=== PATIENT | male | born 1945 | race Hispanic/Latino ===

== ENCOUNTER 2017-08-24 19:29 | Inpatient (IN) | payer MEDICARE, OTHER ==
[~2017-08-24 19:29] MED LIST: Heparin 10,000 UNITS/ 10 ML VIAL ONE
--- NOTE | 2017-08-24 20:08 | PDOC.EVN ---
Event Note - Event Note Event Note: [id number] 1. A/CKD stage 3 2. Pulmonary edema 3. HTN 4. R/O CHF 5. H/O PVD plan: see orders
[2017-08-24] MEDS ORDERED: Acetaminophen 325 MG TAB PO PRN (20:41)
[2017-08-24] MEDS ORDERED: Ondansetron HCl/PF 4 MG/2 ML Vial IVP PRN (20:41)
[2017-08-24] MEDS: Atorvastatin Calcium 20 MG TAB PO SCH (21:25)
[2017-08-24] MEDS: NIFEdipine XL 60 MG TAB PO SCH (21:25)
[2017-08-24] MEDS: Acetaminophen/Codeine 30-300mg Tablet PO SCH (21:26)
[2017-08-24] MEDS: hydrALAZINE 25 MG TAB PO SCH (21:26)
[2017-08-24] MEDS: Heparin 5,000 UNITS/ML VIAL SC SCH (21:28)
[2017-08-25] MEDS ORDERED: Furosemide 100 MG/10 ML VIAL SLOW IVP SCH (04:00)
[2017-08-25 05:28] LABS: Anion Gap 21 mmol/L (10-20); Calc. Creatinine Clearance 14 mL/min (70-130); Calcium 9.2 mg/dL (7.8-10.44); Carbon Dioxide 22 mmol/L (23-31); Chloride 95 mmol/L (98-107); Estimated GFR-MDRD 12; Phosphorus 5.6 mg/dL (2.3-4.7)
[2017-08-25 05:33] LABS: Troponin I 1.357 ng/mL (< 0.028)
[2017-08-25 05:39] LABS: BUN (Urea Nitrogen) 140 mg/dL (8.4-25.7)
[2017-08-25] MEDS: Acetaminophen/Codeine 30-300mg Tablet PO SCH ×3 (05:45→20:54)
[2017-08-25 06:07] LABS: Anisocytosis SLIGHT = 6-15 cells (100X) (0-5/hpf); Band 5 % (5-11); Elliptocytes SLIGHT = 2-5 cells (100X) (0-1/hpf); Hematocrit 31.5 % (42.0-52.0); Mean Platelet Volume 10.9 fL (7.4-10.4); Myelocyte 1 % (0-0); Neutrophil 75 % (42-75); Nucleated RBC 1 % (0); Red Blood Cell (RBC) Count 4.33 mill/uL (4.70-6.10); White Blood Cell (WBC) Count 10.8 thou/uL (4.8-10.8)
--- NOTE | 2017-08-25 06:10 | HP ---
DATE OF ADMISSION: 08/24/2017 CHIEF COMPLAINT: Dyspnea. HISTORY OF PRESENT ILLNESS: Patient is a 71-year-old male with past medical history of hypertension, peripheral vascular disease, TIA, hyperlipidemia, chronic kidney disease stage 3, now came to the ER, complaining of dyspnea, dyspnea started last few days, dyspnea associated with palpable swelling also, complains of dyspnea on minimal exertion, complains of some dyspnea on lying flat also. Denies any chest pain, denies any palpations. Complains of fatigue. Denies any nausea, denies any vomiting, denies any cough, denies any production, denies any dysuria, denies any hematuria. PAST MEDICAL HISTORY: As per HPI. PAST SURGICAL HISTORY: Reviewed. SOCIAL HISTORY: Denies smoking, denies alcohol use and drugs. FAMILY HISTORY: Positive for coronary artery disease, [place]. ALLERGIES: NEURONTIN, LISINOPRIL. REVIEW OF SYSTEMS: Constitutional: Denies any fever, denies any chills. Positive for fatigue. Eyes: Denies any vision problems. Ears: Denies any hearing loss. Neck: Denies any neck pain. Cardiovascular system: Denies any chest pain. Respiratory system: Positive for dyspnea. Positive for cough. Gastrointestinal system: Denies nausea, vomiting, complains of loss of appetite. Musculoskeletal: Positive for bilateral lower extremity swelling, edematous, and rash. Psychiatric: Denies anxiety. All other review of systems are reviewed and are negative. PHYSICAL EXAMINATION: CONSTITUTIONAL/VITAL SIGNS: At the time of H and P performed, blood pressure is 131/62, pulse ox 96%, heart rate 71. GENERAL: The patient appears comfortable. HEENT: Pupils equal, round, and reactive to light. Anterior nares patent. Nose normal. Oral cavity: No teeth seen. Tongue is moist. NECK: Supple, no JVD. CARDIOVASCULAR: S1, S2 present. Regular rate and rhythm. No murmurs, no rubs , no gallops. RESPIRATORY: No wheezing, no rhonchi. Diminished at the bases. Positive for crackles. GASTROINTESTINAL: Abdomen is soft, nontender, no guarding, no organomegaly, no masses felt. MUSCULOSKELETAL: Trace edema. CRANIAL NERVOUS SYSTEM: Awake, follows commands. Speech clear. PSYCHIATRIC: Mood is appropriate at this time. LABORATORY AND DIAGNOSTIC DATA: At the time of H and P performed, white count 14.6, hemoglobin 10.4, platelet count is 247. Sodium 136, potassium 3.3, chloride 94, CO2 of 20, BUN 139, creatinine is 5.46. Baseline creatinine is around 1.7 in 2016. Albumin is 3.8, globulin 5, vitamin B, free T4. Chest x- ray, no obvious infiltrate seen. Positive for some pulmonary congestion. ASSESSMENT AND PLAN: The patient is a 71-year-old male. 1. Acute on chronic kidney disease. We will plan to consult nephrology for patient. Plan to place Howard catheter. Plan to check CT renal stone protocol to rule out any obstruction. Plan to hold off maintenance efforts at this time. Plan to check urine studies. 2. Acute on chronic congestive heart failure, pressor fluid overload. Plan to monitor the patient closely. Plan to consult cardiology to evaluate the patient. We will hold diuretics at this time because of the acute kidney injury. The patient's respiratory status is stable at this time. If respiratory status gets worse, we will give a dose of Lasix at the time. 3. History of hypertension. Monitor blood pressure, hold lisinopril. Continue home medications. 4. History of coronary artery disease. Continue aspirin. 5. History of peripheral vascular disease, stable at this time. The case was discussed in detail with the patient. The patient is FULL CODE. MTDD
[2017-08-25] MEDS: Heparin 5,000 UNITS/ML VIAL SC SCH ×3 (08:36→20:54)
[2017-08-25] MEDS: hydrALAZINE 25 MG TAB PO SCH ×3 (08:37→20:55)
[2017-08-25] MEDS: NIFEdipine XL 60 MG TAB PO SCH ×2 (08:38→20:53)
[2017-08-25 08:57] LABS: Troponin I 1.279 ng/mL (< 0.028)
[2017-08-25] MEDS ORDERED: FLU VACC TS2017-18 (>65YR) 0.5 ML SYRINGE IM ONE (09:00)
[2017-08-25] MEDS ORDERED: Cefepime 1 GM in Sodium Chloride 0.9% 100 ML IVPB SCH ×2 (10:45→21:00)
[2017-08-25] MEDS: Cefepime 1 GM, Admixture Fee 1 EACH in Sterile Water 10 ML SLOW IVP SCH ×2 (11:58→23:46)
[2017-08-25] MEDS: Levofloxacin/D5W 250 MG in Premix Bag 1 BAG IVPB SCH (12:05)
--- NOTE | 2017-08-25 12:05 | PDOC.PN ---
- Subjective Encounter Start Date: 08/25/17 Encounter Start Time: 12:04 breathing better no f/c no n/v - Objective MAR Reviewed: Yes Vital Signs & Weight: Vital Signs (12 hours) Temp Pulse Resp BP BP Pulse Ox 08/25/17 11:43 97.6 F 73 20 120/54 L 98 08/25/17 08:37 69 124/59 L 08/25/17 08:35 97.9 F 70 20 98 08/25/17 08:00 97.9 F 70 24 H 131/58 L 98 08/25/17 03:09 98.4 F 71 17 128/60 96 Weight Weight 163 lb 7 oz I&O: 08/24/17 08/25/17 08/26/17 06:59 06:59 06:59 Intake Total 360 290 Output Total 650 450 Balance -290 -160 Result Diagrams: 08/25/17 04:18 08/25/17 04:18 Phys Exam - Physical Examination Constitutional: NAD HEENT: PERRLA Neck: no nodes coarse bs, decreased at bases. rhonchi lt upper lobe Cardiovascular: no significant murmur Gastrointestinal: non-tender Musculoskeletal: pulses present Neurological: normal sensation Psychiatric: A&O x 3 Dx/Plan (1) PNA (pneumonia) Code(s): J18.9 - PNEUMONIA, UNSPECIFIED ORGANISM Status: Acute (2) Elevated troponin Code(s): R74.8 - ABNORMAL LEVELS OF OTHER SERUM ENZYMES Status: Acute (3) Acute on chronic diastolic CHF (congestive heart failure) Code(s): I50.33 - ACUTE ON CHRONIC DIASTOLIC (CONGESTIVE) HEART FAILURE Status : Acute (4) Hypertension Code(s): I10 - ESSENTIAL (PRIMARY) HYPERTENSION Status: Chronic Qualifiers: Hypertension type: essential hypertension Qualified Code(s): I10 - Essential (primary) hypertension Comment: Not well controlled, will adjust meds. Hold off on PA inhibitor for now until renal function stabilized. (5) PVD (peripheral vascular disease) Code(s): I73.9 - PERIPHERAL VASCULAR DISEASE, UNSPECIFIED Status: Chronic Comment: S/P CEA on right yesterday. BP running high, on NTG and Nipride for control. (6) CAD (coronary artery disease) Code(s): I25.10 - ATHSCL HEART DISEASE OF [place] CORONARY ARTERY W/O ANG PCTRS Status: Acute (7) COPD (chronic obstructive pulmonary disease) Status: Acute (8) Hypokalemia Code(s): E87.6 - HYPOKALEMIA Status: Acute - Plan * cont iv lasix and abx * f/u blood cultures * f/u lytes
[2017-08-25 12:36] LABS: Critical Call Chem Troponin I RESULT DECREASING; Troponin I 1.078 ng/mL (< 0.028)
[2017-08-25] MEDS: Furosemide 100 MG/10 ML VIAL SLOW IVP SCH (14:27)
--- NOTE | 2017-08-25 14:59 | CON ---
DATE OF SERVICE: 08/25/2017 REFERRING PHYSICIAN: Osmani Gage MD. REASON FOR CONSULTATION: Dyspnea. HISTORY OF PRESENT ILLNESS: Mr. Goins is a 71-year-old gentleman who is cared for regularl y by Dr. Oneil, who presents to the [place] ER with worsening dyspnea. He reports a 4-5 day hi story of vague upper respiratory symptoms including dry cough, sore throat and congestion. On exam in [place], he was found to be hypoxic with oxygen saturations of 87% with physical exam fi ndings consistent with congestive heart failure. BNP was quite elevated at 2780 with a remarkable c hange in his renal function with BUN of 139 and a creatinine of 5.4 (GFR of 10). This is significan tly changed from his prior admission during which he underwent carotid endarterectomy. He reports a recent diagnosis of chronic kidney failure and continued to take nonsteroidal anti-infl ammatory medications for pain 3 times daily. These agents included ibuprofen and naproxen, both of which he was taken 3 times daily. These meds have subsequently been discontinued since his presenta tion yesterday. PAST MEDICAL HISTORY: 1. Congestive heart failure, acute diastolic. 2. Hypertension. 3. Peripheral vascular disease. 4. Gonzalez's palsy. 5. Chronic kidney disease stage 3 at baseline. PAST SURGICAL HISTORY: Bilateral carotid endarterectomy. ALLERGIES: GABAPENTIN, LISINOPRIL. SOCIAL HISTORY: He denies tobacco use, ethanol abuse, or illicit recreational drug use. FAMILY HISTORY: Negative with respect to premature atherosclerosis. CURRENT MEDICATIONS: At home, 1. Naproxen and ibuprofen, as mentioned. These have been discontinued. 2. Bisoprolol with hydrochlorothiazide 10/6.25 mg 2 tablets daily. 3. Amlodipine 10 mg daily. 4. Hydralazine 50 mg 2 tablets three times daily. 5. Tylenol No.3 three times daily. 6. Lipitor 20 mg at bedtime. 7. Lasix 20 mg daily. 8. Nifedipine 60 mg b.i.d. 9. Calcitriol 0.5 mcg Thursday, Thursday, and Thursday. 10. Aspirin 81 mg daily. REVIEW OF SYSTEMS: As per the history of present illness. Remainder of 12 system review is negativ e. PHYSICAL EXAMINATION: VITAL SIGNS: Blood pressure 120/54, pulse 73 and regular, respiratory rate 20 and nonlabored, tempe rature 97.6, oxygen saturation 98% on 3 liters per minute per nasal cannula. GENERAL: This is a well-developed, well-nourished 71-year-old gentleman in no acute distre ss. He is alert and oriented x4. He answers questions appropriately. HEENT: Head was atraumatic, normocephalic. Pupils are equally round and reactive, sclerae and conj unctivae are clear. There are no oral lesions. NECK: Supple, no JVD, thyromegaly, or carotid bruits. CHEST: Symmetrical inspiration and expiration. HEART: Regular rate and rhythm, no murmur, S3, S4. PMI nondisplaced, not enlarged. LUNGS: Occasional opening pops and crackles noted in the bases bilaterally. There are no other adv entitious sounds appreciated. ABDOMEN: Soft, nontender, nondistended, without mass or organomegaly. Bowel sounds are present in all 4 quadrants. No flank bruits auscultated. EXTREMITIES: 2+ pulses noted bilaterally in the upper and lower extremities. Strength 5/5 bilater ally. There is no clubbing, cyanosis or significant edema. NEUROLOGIC: Grossly intact with no focal motor deficits appreciated. DATABASE: EKG reveals sinus rhythm with nonspecific ST-T changes. LABORATORY DATA: CBC reveals a white count of 10, H\T\H of 9 and 31, platelet count 202,000. Diffe rential white blood cells normal. Red cell indices are microcytic with MCV of 72. Chemistries reve al sodium of 135, potassium 3.1, chloride 95, bicarbonate 22, BUN and creatinine 140 and 4.9. Estim ated GFR is 12, calcium is 9.2, phosphorus 5.6, magnesium is 3. Troponins are elevated, peaking at 1 .35. These are trending downward to now 1.07. ASSESSMENT: 1. Acute on chronic renal failure due to likely interstitial nephritis secondary to nonsteroidal an ti-inflammatory drugs. 2. Congestive heart failure, acute on chronic diastolic. 3. Isolated troponin elevation, likely demand ischemia related. 4. Hypertension. 5. Peripheral vascular disease, status post carotid endarterectomy x2. 6. Dyslipidemia, on therapy. RECOMMENDATIONS: 1. From a cardiac standpoint, he is stable and asymptomatic. His symptoms have improved with mild improvement in his renal function. He is making good urine currently. He is not acidotic. His eric ctrolytes are stable and Nephrology has been consulted. He follows with Dr. Chacon. 2. We will monitor him over the course of his hospitalization and manage him symptomatically at thi s time as any contrast exposure would put him at grave risk for initiation of dialysis with the curr ent state of his renal function. 3. I will notify Dr. Oneil of his admission and he will assume care tomorrow. I appreciate the opportunity to participate.
--- NOTE | 2017-08-25 17:25 | CON ---
DATE OF CONSULTATION: 08/25/2017 HISTORY OF PRESENT ILLNESS: Mr. Goins is a very pleasant 71-year-old gentleman who presents with se veral days of shortness of breath and cough. His wanted him to go to the doctor, but he is exc ited about that on Thursday, so he had planned to go to see the doctor yesterday and being admitted ye sterday. I was consulted because of his presence in the IMU. He says he feels about the same. PAST MEDICAL HISTORY: Remarkable for a lipid disorder, atherosclerotic vascular disease, history of TIA, history of chronic kidney disease, history of hypertension, history of Gonzalez's palsy, history o f peripheral vascular stenting in the past. FAMILY HISTORY: Positive for vascular disease and hypertension. SOCIAL HISTORY: He is not a smoker or drinker. REVIEW SYSTEMS: Otherwise negative. He had no hemoptysis. PHYSICAL EXAMINATION: GENERAL: He is in no distress. VITAL SIGNS: He is afebrile, heart rate 73, blood pressure 120/54, respiratory rate 20, oximetry is 98% on 3 liters. HEENT: Pupils are equal. Sclerae is anicteric. NECK: Supple. No lymphadenopathy. LUNGS: Clear. HEART: Regular rhythm. No S3 is heard. ABDOMEN: Soft and nontender. EXTREMITIES: Without asymmetry. LABORATORY DATA: White count 10.8, 14.6 yesterday. Hemoglobin 10.4 yesterday, 9.7 today. Platelet s 202,000, he has 5% bands on his peripheral smear. Sodium 135, potassium 3.1, chloride 95, bicarbo sabra 22, BUN 140, creatinine 4.9, BUN was 29 in June of last year. Chest radiograph shows a le ft upper lobe infiltrate. IMPRESSION: 1. Pneumonia, involving the left upper lobe. 2. Advanced renal dysfunction. 3. Anemia of chronic disease. 4. Deconditioning. PLAN: Broad antimicrobial therapy. Nephrology input. His radiograph is not consistent with pulmon matt edema in my opinion.
[2017-08-25] MEDS: Atorvastatin Calcium 20 MG TAB PO SCH (20:54)
[2017-08-26 05:30] LABS: Anion Gap 23 mmol/L (10-20); Calc. Creatinine Clearance 15 mL/min (70-130); Calcium 9.1 mg/dL (7.8-10.44); Carbon Dioxide 21 mmol/L (23-31); Chloride 92 mmol/L (98-107); Estimated GFR-MDRD 12; Phosphorus 6.5 mg/dL (2.3-4.7)
[2017-08-26] MEDS: Furosemide 100 MG/10 ML VIAL SLOW IVP SCH ×2 (05:32→14:16)
[2017-08-26] MEDS: Acetaminophen/Codeine 30-300mg Tablet PO SCH ×3 (05:32→21:36)
[2017-08-26 05:41] LABS: BUN (Urea Nitrogen) 145 mg/dL (8.4-25.7); BUN/Creatinine Ratio 30.92
--- NOTE | 2017-08-26 06:26 | CON ---
DATE OF CONSULTATION: 08/25/2017 CONSULTING PHYSICIAN: Nelson Joseph MD REASON FOR CONSULTATION: Acute kidney injury on chronic kidney disease. REASON FOR ADMISSION: Shortness of breath. HISTORY OF PRESENT ILLNESS: A 71-year-old male with history of hypertension, peripheral vascular di sease, hyperlipidemia, CKD stage 3, came to the hospital with above complaints and is being evaluate d. He was found to have pneumonia and also being treated for possible CHF, having evaluation by [facility]. The patient is feeling better. His creatinine on admission was 5.4, which impro renard to 4.9. His baseline is around 2.4. His last creatinine here was 1.7, but last time checked wa s 2.1 to 2.4. He was also feeling very bad for the last few days, but denied to come to the [facility], his brought him this time. He is having chills, cough also, no chest pain. PAST MEDICAL HISTORY: Positive for hypertension, peripheral vascular disease, hyperlipidemia, TIA, CKD. PAST SURGICAL HISTORY: Peripheral vascular disease stenting. HOME MEDICATIONS: Include amlodipine, hydralazine, Nifedipine furosemide, calcitriol, atorvastatin, aspirin, and statin. ALLERGIES: GABAPENTIN and LISINOPRIL. SOCIAL HISTORY: No smoking, alcohol, drugs. FAMILY HISTORY: Positive for heart disease. REVIEW OF SYSTEMS: The following complete review of systems was negative, unless otherwise mentione d in the HPI or below: Constitutional: Weight loss or gain, ability to conduct usual activities. Skin: Rash, itching. Eyes: Double vision, pain. ENT/Mouth: Nose bleeding, neck stiffness, pain, tenderness. Cardiovascular: Palpitations, dyspnea on exertion, orthopnea. Respiratory: Shortness of breath, wheezing, cough, hemoptysis, fever or night sweats. Gastrointestinal: Poor appetite, abdominal pain, heartburn, nausea, vomiting, constipation, or diar emmy. Genitourinary: Urgency, frequency, dysuria, nocturia. Musculoskeletal: Pain, swelling. Neurologic/Psychiatric: Anxiety, depression. Allergy/Immunologic: Skin rash, bleeding tendency. PHYSICAL EXAMINATION: GENERAL: This is a well-built male in no apparent distress. VITAL SIGNS: Temperature 98.5, pulse 87, respiratory rate 17, blood pressure 132/67. HEENT: Atraumatic, normocephalic. Oral mucosa is moist. NECK: Supple, no masses. CARDIOVASCULAR: S1, S2 heard. Rate and rhythm regular. RESPIRATORY: Clear. MUSCULOSKELETAL: . DERMATOLOGIC: No skin rash. NEUROLOGIC: Alert and awake. PSYCHIATRIC: Mood and affect normal. LABORATORY DATA: Hemoglobin is 9.7, potassium is 3.1, BUN is 140, creatinine 4.9. Chest x-ray with left upper lobe pneumonia. ASSESSMENT AND PLAN: 1. Acute kidney injury on chronic kidney disease stage 3 with baseline creatinine of 2.4 and creati nine getting better. Continue current management. We will monitor. Avoid nephrotoxins. Renally d ose all the medicines. 2. Hyponatremia. 3. Hypokalemia. 4. Hypochloremia. 5. Acidosis, mild. 6. Hyperphosphatemia. 7. Elevated troponin. 8. Anemia, rule out bleed. 9. Hypertension, stable. Continue supportive care including antibiotics and we will follow. Avoid nephrotoxins. Currently o n furosemide, may have to drop the dose. We will follow for now. Thank you for the consult. We will follow renal function closely. No acute need for dialysis danielle phillips.
[2017-08-26] MEDS: Heparin 5,000 UNITS/ML VIAL SC SCH ×3 (07:51→20:32)
[2017-08-26] MEDS: hydrALAZINE 25 MG TAB PO SCH ×3 (07:52→21:35)
[2017-08-26] MEDS: NIFEdipine XL 60 MG TAB PO SCH ×2 (07:53→20:31)
[2017-08-26] MEDS: Calcitriol 0.25 MCG CAP PO SCH (07:53)
[2017-08-26] MEDS ORDERED: Potassium Chloride 20 MEQ TAB PO SCH (09:00)
[2017-08-26] MEDS: Levofloxacin/D5W 250 MG in Premix Bag 1 BAG IVPB SCH (13:18)
[2017-08-26] MEDS: Cefepime 1 GM, Admixture Fee 1 EACH in Sterile Water 10 ML SLOW IVP SCH ×2 (13:18→23:41)
--- NOTE | 2017-08-26 15:47 | PDOC.PN ---
- Subjective Encounter Start Date: 08/26/17 Encounter Start Time: 15:46 Patient seen and examined. No new complaints. No overnight events - Objective MAR Reviewed: Yes Vital Signs & Weight: Vital Signs (12 hours) Temp Pulse Pulse Pulse Resp BP BP 08/26/17 14:29 69 08/26/17 12:00 97.6 F 69 18 08/26/17 09:18 71 70 113/48 L 08/26/17 08:00 97.4 F L 72 18 08/26/17 07:53 72 125/58 L 08/26/17 07:52 72 125/58 L 08/26/17 07:18 97.4 F L 72 18 BP BP Pulse Ox Pulse Ox Pulse Ox 08/26/17 14:29 08/26/17 12:00 133/48 L 100 08/26/17 09:18 121/49 L 92 L 96 08/26/17 08:00 98 08/26/17 07:53 08/26/17 07:52 08/26/17 07:18 117/51 L 98 Weight Weight 163 lb I&O: 08/25/17 08/26/17 08/27/17 06:59 06:59 06:59 Intake Total 360 1210 Output Total 650 1150 Balance -290 60 Result Diagrams: 08/25/17 04:18 08/26/17 03:55 Phys Exam - Physical Examination Constitutional: NAD HEENT: PERRLA Neck: no JVD coarse bs, bibasilar rales Cardiovascular: no significant murmur Gastrointestinal: non-tender Musculoskeletal: pulses present Neurological: moves all 4 limbs Psychiatric: A&O x 3 Dx/Plan (1) PNA (pneumonia) Code(s): J18.9 - PNEUMONIA, UNSPECIFIED ORGANISM Status: Acute (2) Elevated troponin Code(s): R74.8 - ABNORMAL LEVELS OF OTHER SERUM ENZYMES Status: Acute (3) Acute on chronic diastolic CHF (congestive heart failure) Code(s): I50.33 - ACUTE ON CHRONIC DIASTOLIC (CONGESTIVE) HEART FAILURE Status : Acute (4) Hypertension Code(s): I10 - ESSENTIAL (PRIMARY) HYPERTENSION Status: Chronic Qualifiers: Hypertension type: essential hypertension Qualified Code(s): I10 - Essential (primary) hypertension Comment: Not well controlled, will adjust meds. Hold off on PA inhibitor for now until renal function stabilized. (5) PVD (peripheral vascular disease) Code(s): I73.9 - PERIPHERAL VASCULAR DISEASE, UNSPECIFIED Status: Chronic Comment: S/P CEA on right yesterday. BP running high, on NTG and Nipride for control. (6) CAD (coronary artery disease) Code(s): I25.10 - ATHSCL HEART DISEASE OF [place] CORONARY ARTERY W/O ANG PCTRS Status: Acute (7) COPD (chronic obstructive pulmonary disease) Status: Acute (8) Hypokalemia Code(s): E87.6 - HYPOKALEMIA Status: Acute - Plan * cont current rx * pulm, renal input appreciated
--- NOTE | 2017-08-26 19:25 | PRG ---
DATE OF SERVICE: 08/26/2017 SUBJECTIVE: Pipo Goins says he is feeling better today. OBJECTIVE: VITAL SIGNS: He is afebrile, heart rate 69, respiratory rate is 18, oximetry is 100%. Blood pressur e 113/48. LUNGS: Clear. HEART: Regular rhythm. ABDOMEN: Soft. LABORATORY DATA: Sodium 133, potassium 3, chloride 92, bicarbonate 21, BUN 145, creatinine 4.69, glu cose 135. Intake and output is positive 60 mL. IMPRESSION: Severe prerenal azotemia on top of pneumonia involving his left upper lobe. PLAN: Continue antimicrobial therapy. We will try to simplify antimicrobial therapy in the morning.
[2017-08-26] MEDS: Atorvastatin Calcium 20 MG TAB PO SCH (20:32)
--- NOTE | 2017-08-26 21:25 | PRG ---
DATE OF SERVICE: 08/26/2017 SUBJECTIVE: Patient was seen and examined at bedside and overnight events noted. Patient denies any shortness of breath or chest pain or palpitation. No history of nausea or vomiting or diarrhea or f ever or chills or cramps. OBJECTIVE: GENERAL: This is a well-built male, in mild distress. VITAL SIGNS: Temperature 97.8, pulse 68, respiratory rate 18, and blood pressure 112/48. HEENT: Atraumatic, normocephalic, oral mucosa is moist. NECK: Supple. CARDIOVASCULAR: S1, S2 heard, rate and rhythm regular. RESPIRATORY: Clear to auscultation. GASTROINTESTINAL: Abdomen is soft. MUSCULOSKELETAL: No tenderness, no edema. DERMATOLOGIC: No skin rash. NEUROLOGIC: Alert and awake and oriented x3, no focal neurologic deficits. Moving all the extremiti es. PSYCHIATRIC: Mood and affect normal. LABORATORY DATA: Potassium is 3.0, BUN is 145, creatinine is 4.0. ASSESSMENT AND PLAN: 1. Acute kidney injury on chronic kidney disease stage 3. His baseline creatinine was 2.4. Creatin ine is getting better, but his BUN is rising, most likely from diuresis. Agree with holding diuretic s for now. 2. Hyponatremia. We will follow. 3. Hypokalemia, replace and monitor. 4. Acidosis. 5. Hyperphosphatemia, limit phosphorus and continue renal diet. 6. Anemia. 7. Hypertension, stable. 8. Continue antibiotics and no acute indication for dialysis.
[2017-08-27 04:59] LABS: Anion Gap 23 mmol/L (10-20); Calc. Creatinine Clearance 13 mL/min (70-130); Carbon Dioxide 20 mmol/L (23-31); Chloride 91 mmol/L (98-107); Estimated GFR-MDRD 10; Phosphorus 7.8 mg/dL (2.3-4.7)
[2017-08-27 05:12] LABS: BUN (Urea Nitrogen) 167 mg/dL (8.4-25.7); BUN/Creatinine Ratio 30.81
[2017-08-27] MEDS: Acetaminophen/Codeine 30-300mg Tablet PO SCH ×3 (05:37→21:32)
[2017-08-27] MEDS: Heparin 5,000 UNITS/ML VIAL SC SCH ×3 (09:34→21:33)
[2017-08-27] MEDS: Sodium Chloride 0.9% 1,000 ML IV SCH ×2 (09:49→21:41)
--- NOTE | 2017-08-27 11:51 | PDOC.PN ---
- Subjective Encounter Start Date: 08/27/17 Encounter Start Time: 11:51 Patient seen and examined. No new complaints. No overnight events - Objective MAR Reviewed: Yes Vital Signs & Weight: Vital Signs (12 hours) Temp Pulse Resp BP Pulse Ox 08/27/17 08:08 97.7 F 63 20 92 L 08/27/17 07:32 97.7 F 63 20 113/48 L 94 L 08/27/17 03:25 97.2 F L 62 16 99/43 L 92 L Weight Weight 163 lb I&O: 08/26/17 08/27/17 08/28/17 06:59 06:59 06:59 Intake Total 1210 300 Output Total 1150 750 Balance 60 -450 Result Diagrams: 08/25/17 04:18 08/27/17 04:27 Phys Exam - Physical Examination Constitutional: NAD HEENT: PERRLA Neck: no JVD Respiratory: no wheezing Cardiovascular: no significant murmur Gastrointestinal: non-tender Musculoskeletal: pulses present Neurological: moves all 4 limbs Dx/Plan (1) PNA (pneumonia) Code(s): J18.9 - PNEUMONIA, UNSPECIFIED ORGANISM Status: Acute (2) Elevated troponin Code(s): R74.8 - ABNORMAL LEVELS OF OTHER SERUM ENZYMES Status: Acute (3) Acute on chronic diastolic CHF (congestive heart failure) Code(s): I50.33 - ACUTE ON CHRONIC DIASTOLIC (CONGESTIVE) HEART FAILURE Status : Acute (4) Hypertension Code(s): I10 - ESSENTIAL (PRIMARY) HYPERTENSION Status: Chronic Qualifiers: Hypertension type: essential hypertension Qualified Code(s): I10 - Essential (primary) hypertension Comment: Not well controlled, will adjust meds. Hold off on PA inhibitor for now until renal function stabilized. (5) PVD (peripheral vascular disease) Code(s): I73.9 - PERIPHERAL VASCULAR DISEASE, UNSPECIFIED Status: Chronic Comment: S/P CEA on right yesterday. BP running high, on NTG and Nipride for control. (6) CAD (coronary artery disease) Code(s): I25.10 - ATHSCL HEART DISEASE OF [place] CORONARY ARTERY W/O ANG PCTRS Status: Acute (7) COPD (chronic obstructive pulmonary disease) Status: Acute (8) Hypokalemia Code(s): E87.6 - HYPOKALEMIA Status: Acute (9) Prerenal azotemia Code(s): R79.89 - OTHER SPECIFIED ABNORMAL FINDINGS OF BLOOD CHEMISTRY Status : Acute - Plan * cont abx * monitor bun * hold diuretics * pulm and renal input appreciated
--- NOTE | 2017-08-27 14:24 | PRG ---
DATE OF SERVICE: 08/27/2017 SUBJECTIVE: He says he feels better today. OBJECTIVE: VITAL SIGNS: He is afebrile, heart rate 60, respiratory rate 18, oximetry is 100% on 3 liters, blood pressure is 108/51. Intake and output is negative 450 mL. LUNGS: Clear. HEART: Regular rhythm. S1 and S2 are normal. ABDOMEN: Soft. LABORATORY DATA: Sodium 130, potassium 3.6, chloride 91, bicarbonate 20, BUN went up to 167 with his negative fluid balance. Creatinine is 5.42. IMPRESSION: 1. Pneumonia. 2. Advanced renal disease. 3. Mild hyponatremia. 4. Mild metabolic acidosis, secondary to his renal disease. 5. History of hypertension, normotensive now. He may do better decreasing his blood pressure meds and to increase his renal perfusion. It is reaso nable to switch him to p.o. antimicrobial therapy. This has been done. We will continue to follow.
[2017-08-27] MEDS: hydrALAZINE 25 MG TAB PO SCH ×2 (15:18→21:39)
[2017-08-27] MEDS: NIFEdipine XL 60 MG TAB PO SCH ×2 (15:18→21:39)
[2017-08-27] MEDS: Bisacodyl 5 MG TAB PO PRN (21:32)
[2017-08-27] MEDS: Atorvastatin Calcium 20 MG TAB PO SCH (21:32)
[2017-08-27] MEDS: Docusate 100 MG CAP PO SCH (21:33)
--- NOTE | 2017-08-28 03:08 | PRG ---
DATE OF SERVICE: 08/27/2017 SUBJECTIVE: The patient was seen and examined at bedside and overnight events noted. The patient de nies any shortness of breath or chest pain or palpitation. No history of nausea or vomiting or diarr hea or fever or chills or cramps. OBJECTIVE: GENERAL: This is a well-built male, in no apparent distress. VITAL SIGNS: Temperature 97.6, pulse 63, respiratory rate 18, blood pressure 111/51. HEENT: Atraumatic, normocephalic. Oral mucosa is moist. NECK: Supple. CARDIOVASCULAR: S1 and S2 heard, rate and rhythm regular. RESPIRATORY: Clear to auscultation. GASTROINTESTINAL: Abdomen is soft. MUSCULOSKELETAL: No tenderness. No edema. DERMATOLOGIC: No skin rash. NEUROLOGIC: Alert and awake and oriented x3. No focal neurologic deficits. Moving all the extremit ies. PSYCHIATRIC: Mood and affect normal. LABORATORY DATA: Potassium is 3.6, BUN is 167, creatinine is 5.4. ASSESSMENT AND PLAN: 1. Acute kidney injury on chronic kidney disease stage 3. Renal function with worsening today, elev ated BUN. No obvious cause known but seems like his blood pressure is lower than usual, most likely causing reduced renal perfusion. Agree with holding blood pressure medicines to rule out renal perfu cheikh and we will also hydrate him as tolerated. The patient does have some edema and slight hypoxia, so with caution, the patient will be kept in IMCU today for close monitoring and IV fluids. If no s ignificant improvement by tomorrow, might need dialysis. 2. We will keep the patient n.p.o. for possible dialysis catheter placement if it is not better. 3. Hyponatremia. 4. Hypokalemia, replaced. 5. Acidosis. 6. Anemia. 7. Hypertension, stable. 8. The patient is currently normotensive, but lower blood pressure for him. We will attempt to keep blood pressure slightly higher to other possible renal perfusion.
[2017-08-28 04:56] LABS: #Eosinphils 0.4 thou/uL (0.0-0.7); #Lymphocytes 1.2 thou/uL (1.20-3.40); #Monocytes 1.3 thou/uL (0.11-0.59); #Neutrophils 7.6 thou/uL (1.40-6.50); %Basophils 0.3 % (0.0-1.0); %Eosinophils 3.4 % (0.0-10.0); %Lymphocytes 11.5 % (21.0-51.0); %Monocytes 12.4 % (0.0-10.0); Mean Platelet Volume 9.8 fL (7.4-10.4); Red Blood Cell (RBC) Count 3.86 mill/uL (4.70-6.10); White Blood Cell (WBC) Count 10.5 thou/uL (4.8-10.8)
[2017-08-28 04:59] LABS: Anion Gap 22 mmol/L (10-20); Calc. Creatinine Clearance 12 mL/min (70-130); Calcium 8.7 mg/dL (7.8-10.44); Carbon Dioxide 20 mmol/L (23-31); Chloride 93 mmol/L (98-107); Estimated GFR-MDRD 10; Phosphorus 8.6 mg/dL (2.3-4.7)
[2017-08-28 05:10] LABS: BUN (Urea Nitrogen) 173 mg/dL (8.4-25.7); BUN/Creatinine Ratio 30.24
[2017-08-28] MEDS: Acetaminophen/Codeine 30-300mg Tablet PO SCH ×4 (05:49→23:27)
[2017-08-28] MEDS ORDERED: Tuberculin PPD 0.1 ML VIAL I-DERMAL SCH (09:45)
--- NOTE | 2017-08-28 09:52 | PRG ---
DATE OF SERVICE: 08/28/2017 He is in no distress today. PHYSICAL EXAMINATION: VITAL SIGNS: He is afebrile, heart rate 73, respiratory rate is 18, oximetry is 99% on 2.5 liters. Lungs, heart, and abdomen are unchanged. We are awaiting transfer out of the IMU. LABORATORY: White count 10.5, hemoglobin is 8.8, platelets 207,000. Sodium 131, potassium 3.6, chloride 93, bicarb 20, BUN is up to 173, it was 145 2 days ago, creatinin e 5.7, it was 4.6 two days ago. His intake and output is positive 850. IMPRESSION: 1. Progressive renal failure. 2. Left upper lobe pneumonia. He is stable to move out of the Intermediate Care Unit. He is on p.o. antimicrobial therapy at this point in time.
--- NOTE | 2017-08-28 10:05 | PRG ---
Patient Name: JONI HORAN Date of service: 08/28/2017 Subjective: Patient was seen and examined at bedside and overnight events noted. Patient denies any shortness of breath or chest pain or palpitation. No history of nausea or vomiting or diarrhea or fever or chills or cramps. Objective: General: This is a well-built white male in no apparent distress Vital signs: Temperature 98.0, pulse 70, respirations 18, blood pressure 118/49. HEENT: Atraumatic, normocephalic. Oral mucosa is moist. Neck: Supple. Cardiovascular: S1 S2 heard. Rate and rhythm regular. Respiratory: Clear to auscultation. Gastrointestinal: Abdomen is soft. Musculoskeletal: No tenderness. No edema. Dermatologic: No skin rash. Neurologic: Alert and awake and oriented X3. No focal neurologic deficits. Moving all the extremit ies. Psychiatric: Mood and affect normal. LABORATORY DATA: Potassium is 3.6, BUN 173, creatinine 5.7, albumin is 3.2. ASSESSMENT AND PLAN: Acute kidney injury on chronic kidney disease stage 4 with worsening renal func tion. BUN remains elevated and worsening creatinine is also elevated. We will check immunological w orkup including ROBERT and ANCA. We will check urine studies, avoid nephrotoxins, renally dose all the medications and plan is to start on dialysis as tolerated. The patient and family is agreeable, we w ill stop IV fluids and the surgeon consulted for dialysis catheter placement. We will follow. Will have dialysis after the catheter placement. Check dialysis labs. Case managem ent consult.
[2017-08-28] MEDS ORDERED: CEFAZOLIN/Water 2 GM/20 ML SYRINGE SLOW IVP SCH (10:15)
[2017-08-28] MEDS: hydrALAZINE 25 MG TAB PO SCH ×4 (10:41→21:48)
[2017-08-28] MEDS: Docusate 100 MG CAP PO SCH ×2 (10:41→21:48)
[2017-08-28] MEDS: Heparin 5,000 UNITS/ML VIAL SC SCH ×3 (10:43→21:49)
[2017-08-28] MEDS: NIFEdipine XL 60 MG TAB PO SCH ×2 (10:43→21:48)
[2017-08-28] MEDS: Calcitriol 0.25 MCG CAP PO SCH (10:45)
--- NOTE | 2017-08-28 10:49 | HP ---
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 He is retired now. I hav e been asked Dr. Chacon to place hemodialysis access catheter and fistula. He has a left distal for earm IV. Patient is fluid overloaded with white count of 10, hemoglobin 9.7. BUN and creatinine are 173 and 5.72 respectively and GFR 10, potassium 3.6. He has stigmata of blood draws in both antecub ital fossa with ecchymosis. ALLERGIES: GABAPENTIN and LISINOPRIL. TOBACCO: None. ALCOHOL: None. MEDICATIONS: Amlodipine 10 mg p.m., hydralazine 100 mg t.i.d., nifedipine ER 60 mg b.i.d., multivita mins daily, omega 3 Krill supplements, Lasix 20 mg a day as an outpatient, vitamin B12 daily, calcitr iol 0.25 mg Thursday, Thursday, and Thursday, bisoprolol fumarate/hydrochlorothiazide 2 tablets p.o. b.i .d., Lipitor 20 mg at bedtime, aspirin 81 mg a day, Tylenol #3 as needed for pain. PAST SURGICAL HISTORY: He has had bilateral carotid endarterectomies performed by Dr. Beebe and the left leg arterial stents placed by Dr. Oneil. He has never had a colonoscopy. REVIEW OF SYSTEMS: Ten point noncontributory. PHYSICAL EXAMINATION: VITAL SIGNS: 5 foot 5 and 167 pounds, 27 BMI, 98 degrees, 73, 18, 118/49. HEENT: Unremarkable. LUNGS: Clear to auscultation. CARDIAC: Regular rate and rhythm without murmur or gallop. ABDOMEN: Soft, nontender. EXTREMITIES: Palpable radial pulses bilaterally, IV Hep-Lock left distal forearm. Ecchymosis both a ntecubital areas indicative of blood draws, possible IV access, edema in all extremities. ASSESSMENT AND PLAN: 1. End-stage renal disease in need of dialysis access. We will plan placement of hemodialysis katie ter and central line today. Avoid IV access blood draws in both upper extremities and reserve these for dialysis access in the future. No antecubital sticks as these are his life lines. No PICC lines , no mid-level upper arm IVs in chronic kidney disease patients and end-stage renal disease patients. Next week, we will plan placement of probable left, possible right arm primary fistula. We will ob tain ultrasound vein mapping both arms for dialysis access, planning access next week. 2. Hypertension. 3. Anemia. 4. No history of colonoscopy, we will need this in the future. 5. Status post bilateral carotid endarterectomies last year by Dr. Beebe. 6. Peripheral artery disease, history of arterial stent, placed by Dr. Oneil in the past.
[2017-08-28] MEDS ORDERED: Heparin 1,000 UNITS/ML VIAL ONE (11:11)
--- NOTE | 2017-08-28 12:31 | ULT ---
BILATERAL UPPER EXTREMITY VENOUS DUPLEX SONOGRAM FOR VEIN MAPPING: HISTORY: Renal disease. Need for long-term dialysis access. FINDINGS: Each internal jugular and subclavian vein, axillary and basilic vein were evaluated with good color a nd spectral Doppler flow. Measurements are as follows. RIGHT: Brachial artery 6 mm Radial artery 3 mm Ulnar artery 4 mm Cephalic Vein: Proximal humerus 2 mm Mid humerus 2 mm Distal humerus 2 mm Antecubital fossa 2 mm Proximal forearm 1 mm Mid forearm 1 mm Distal forearm 1 mm Basilic Vein: Proximal humerus 4 mm Mid humerus 4 mm Distal humerus 4 mm Antecubital fossa 4 mm Proximal forearm 2 mm Mid forearm 1 mm Distal forearm 1 mm LEFT Brachial artery 6 mm Radial artery 3 mm Ulnar artery 3 mm Cephalic Vein: Proximal humerus 2 mm Mid humerus 2 mm Distal humerus 2 mm Antecubital fossa 2 mm Proximal forearm 2 mm Mid forearm 2 mm Distal forearm 2 mm Basilic Vein: Proximal humerus 5 mm Mid humerus 4 mm Distal humerus 4 mm Antecubital fossa 5 mm Proximal forearm 1 mm Mid forearm 1 mm Distal forearm 1 mm IMPRESSION: Patent vascular structures throughout each upper extremity, with measures as detailed above. POS: [facility]
--- NOTE | 2017-08-28 12:46 | PDOC.PN ---
- Subjective Encounter Start Date: 08/28/17 Encounter Start Time: 12:44 Patient seen and examined. No new complaints. No overnight events - Objective MAR Reviewed: Yes Vital Signs & Weight: Vital Signs (12 hours) Temp Pulse Resp BP BP Pulse Ox 08/28/17 10:43 73 08/28/17 10:41 73 118/49 L 08/28/17 08:00 98.0 F 73 18 99 08/28/17 07:00 98.0 F 73 18 118/49 L 99 08/28/17 03:50 98.2 F 66 22 H 124/50 L 92 L Weight Weight 167 lb 14.4 oz I&O: 08/27/17 08/28/17 08/29/17 06:59 06:59 06:59 Intake Total 300 1200 Output Total 750 350 Balance -450 850 Result Diagrams: 08/28/17 04:19 08/28/17 04:19 Phys Exam - Physical Examination Constitutional: NAD HEENT: PERRLA Neck: no JVD Respiratory: no wheezing some bibasilar rales Cardiovascular: no significant murmur Gastrointestinal: non-tender Musculoskeletal: pulses present Neurological: moves all 4 limbs Psychiatric: A&O x 3 Dx/Plan (1) PNA (pneumonia) Code(s): J18.9 - PNEUMONIA, UNSPECIFIED ORGANISM Status: Acute (2) Elevated troponin Code(s): R74.8 - ABNORMAL LEVELS OF OTHER SERUM ENZYMES Status: Acute (3) Acute on chronic diastolic CHF (congestive heart failure) Code(s): I50.33 - ACUTE ON CHRONIC DIASTOLIC (CONGESTIVE) HEART FAILURE Status : Acute (4) Hypertension Code(s): I10 - ESSENTIAL (PRIMARY) HYPERTENSION Status: Chronic Qualifiers: Hypertension type: essential hypertension Qualified Code(s): I10 - Essential (primary) hypertension Comment: Not well controlled, will adjust meds. Hold off on PA inhibitor for now until renal function stabilized. (5) PVD (peripheral vascular disease) Code(s): I73.9 - PERIPHERAL VASCULAR DISEASE, UNSPECIFIED Status: Chronic Comment: S/P CEA on right yesterday. BP running high, on NTG and Nipride for control. (6) CAD (coronary artery disease) Code(s): I25.10 - ATHSCL HEART DISEASE OF [place] CORONARY ARTERY W/O ANG PCTRS Status: Acute (7) COPD (chronic obstructive pulmonary disease) Status: Acute (8) Hypokalemia Code(s): E87.6 - HYPOKALEMIA Status: Acute (9) Prerenal azotemia Code(s): R79.89 - OTHER SPECIFIED ABNORMAL FINDINGS OF BLOOD CHEMISTRY Status : Acute - Plan * cont current mx * renal to plan for dialysis. will go for temp cath placement
[2017-08-28 13:40] LABS: Bilirubin Negative (Negative); Blood, Urine Negative (Negative); Glucose, Urine (Dipstick) Negative (Negative); Ketone, Urine Negative (Negative); Nitrite Negative (Negative); Protein, Urine (Dipstick) Negative (Neg-Trace); Urobilinogen 0.2 mg/dL (0.2-1.0)
[2017-08-28] MEDS ORDERED: Bupivacaine/Epinephrine 0.25% 30 ML VIAL ONE (17:02)
[2017-08-28] MEDS ORDERED: Heparin 10,000 UNITS/1 ML VIAL ONE (17:02)
[2017-08-28] MEDS ORDERED: Midazolam HCl 2 mg/2 ml Vial ONE (17:03)
[2017-08-28] MEDS ORDERED: Fentanyl 100 MCG/2 ML VIAL ONE (17:03)
[2017-08-28] MEDS ORDERED: Propofol 200 MG/20 ML VIAL ONE (17:30)
--- NOTE | 2017-08-28 18:48 | RAD ---
CHEST ONE VIEW 08/28/17 HISTORY: Central line placement. COMPARISON: Chest two view 08/24/17. FINDINGS: Left upper lobe air space opacity has worsened. New right pleural effusion. Right perihilar air spac e opacity is also present. Small left effusion. Dialysis catheter is in place with tip at the inferior SVC. New central venous catheter from the left IJ approach is in place with tip at the right atrium. No pneumothorax. IMPRESSION: 1. Uncomplicated placement of central venous catheters. 2. Progressive left upper lobe opacity can be seen with infection or worsening edema. Less likel y malignancy. 3. New layering right pleural effusion and perihilar opacity suggesting edema. POS: [facility]
--- NOTE | 2017-08-28 18:55 | RAD ---
XR FLUOROSCOPY INHERENT TO SURGERY 08/28/17 COMPARISON: None. FINDINGS: No diagnostic images were sent for review. Total fluoroscopy time is 1 second. IMPRESSION: Fluoroscopy for surgery. POS: [facility]
[2017-08-28] MEDS: Atorvastatin Calcium 20 MG TAB PO SCH (21:49)
--- NOTE | 2017-08-28 22:29 | OP ---
DATE OF SERVICE: 08/28/2017 PREOPERATIVE DIAGNOSES: End-stage renal disease, poor IV access. POSTOPERATIVE DIAGNOSES: End-stage renal disease, poor IV access. PROCEDURE: Right internal jugular cuffed tunneled hemodialysis catheter, left IJ central line, ultra sound fluoroscopy used for placement. SURGEON: Dr. Travis Zaragoza ANESTHESIA: Intravenous sedation. Local 0.25% Marcaine with epinephrine, 30 mL, mixed with Xylocain e, 10 mL. PROCEDURE IN DETAIL: The patient was taken to the operating room where under intravenous sedation; n salena and chest were prepared with ChloraPrep, draped in routine fashion. Local anesthetic infiltrated into skin and subcutaneous tissue about the operative site. With ultrasound guidance, the right and left internal jugular veins were cannulated with trocar catheter. J-wire was threaded. Trocar cath eter was removed. Skin incised and enlarged sharply on both sides. Stab incision made over the righ t chest. Using the tunneling device, precurved angiodynamics cuffed tunnel hemodialysis catheter armin neled between the two incisions, placing the fabric cuff beneath the skin exit site and catheter secu red with 2 interrupted sutures of 3-0 nylon. Smaller and medium sized dilators were placed over the J-wire into the internal jugular vein and removed. Dilator and pull-away sheath placed over the J-wi re into the superior vena cava and dilator and J-wire removed. Catheter was placed through a pull-aw ay sheath. Pull-away sheath removed and the platysma approximated with 4-0 Monocryl, skin with subde rmal 4-0 Monocryl and DermaGlue applied. Each port aspirated blood and flushed with saline solution and then heparinized saline solution 1000 units heparin per mL indicated volume of the port Seldinger technique used to place a left IJ central line. J-wire removed. Catheter secured with 2 i nterrupted sutures of 3-0 nylon. Biopatch and sterile dressing applied. Each port aspirated blood a nd flushed with saline solution. Fluoroscopic images revealed good line placement.
[2017-08-29 05:14] LABS: Band 4 % (5-11); Hematocrit 28.2 % (42.0-52.0); Hypochromia SLIGHT = 6-15 cells (100X) (0-5/hpf); Mean Platelet Volume 10.1 fL (7.4-10.4); Microcytosis SLIGHT = 6-15 cells (100X) (0-5/hpf); Neutrophil 74 % (42-75); Nucleated RBC 2 % (0); Polychromasia SLIGHT = 2-3 cells (100X) (0-2/hpf); White Blood Cell (WBC) Count 8.3 thou/uL (4.8-10.8)
[2017-08-29 05:21] LABS: BUN (Urea Nitrogen) 131 mg/dL (8.4-25.7)
[2017-08-29 05:29] LABS: ALT (SGPT) 31 U/L (8-55); AST (SGOT) 23 U/L (5-34); Alkaline Phosphatase 103 U/L (40-150); Anion Gap 18 mmol/L (10-20); Bilirubin, Total 0.7 mg/dL (0.2-1.2); Calc. Creatinine Clearance 17 mL/min (70-130); Calcium 8.8 mg/dL (7.8-10.44); Carbon Dioxide 22 mmol/L (23-31); Chloride 98 mmol/L (98-107); Estimated GFR-MDRD 14; Globulin 4.1 g/dL (2.4-3.5); Phosphorus 6.3 mg/dL (2.3-4.7); Protein, Total 7.2 g/dL (5.8-8.1)
[2017-08-29] MEDS: Acetaminophen/Codeine 30-300mg Tablet PO SCH ×3 (06:15→22:30)
[2017-08-29 06:19] LABS: BUN/Creatinine Ratio 31.19
[2017-08-29] MEDS: NIFEdipine XL 60 MG TAB PO SCH ×2 (10:31→20:53)
[2017-08-29] MEDS: hydrALAZINE 25 MG TAB PO SCH ×3 (10:32→20:53)
[2017-08-29] MEDS: Docusate 100 MG CAP PO SCH ×2 (10:32→20:53)
[2017-08-29] MEDS: Heparin 5,000 UNITS/ML VIAL SC SCH ×3 (10:33→20:52)
--- NOTE | 2017-08-29 12:23 | PRG ---
Patient Name: JONI HORAN Date of service: 08/29/2017 Subjective: Patient was seen and examined at bedside and overnight events noted. Patient denies any shortness of breath or chest pain or palpitation. No history of nausea or vomiting or diarrhea or fever or chills or cramps. Objective: General: This is a well-built male in no apparent distress Vital signs: Temperature 97, pulse 92, respiratory rate 20, blood pressure 137/68. HEENT: Atraumatic, normocephalic. Oral mucosa is moist. Neck: Supple. Cardiovascular: S1 S2 heard. Rate and rhythm regular. Respiratory: Clear to auscultation. Gastrointestinal: Abdomen is soft. Musculoskeletal: No tenderness. No edema. Dermatologic: No skin rash. Neurologic: Alert and awake and oriented X3. No focal neurologic deficits. Moving all the extremit ies. Psychiatric: Mood and affect normal. LABORATORY DATA: Potassium is 3.3, BUN 131, potassium 4.2. ASSESSMENT AND PLAN: 1. End-stage renal disease on hemodialysis, started on hemodialysis during this admission, toleratin g well. He is going to have a fistula on Thursday. Case management consult for outpatient placement a nd will continue on dialysis as tolerated. Monitor labs. Plan is to have 2 hours of dialysis tomorr ow. Patient had 2 hours dialysis today and tolerated it well. We will check immunological workup. 2. Anemia. We will continue Epogen with dialysis. We will check iron studies. 3. Hypertension, stable. 4. Edema. We will remove fluid with dialysis. Plan is to continue on dialysis and follow with case management.
--- NOTE | 2017-08-29 13:04 | PRG ---
DATE OF SERVICE: 08/29/2017 SUBJECTIVE: This morning he underwent dialysis, he is better, less short of breath. PHYSICAL EXAMINATION: VITAL SIGNS: Sats are 98% on 3 liters, temperature 99, blood pressure 137/68. CHEST: No wheezing or crackles. CARDIAC: Normal S1 and S2. ABDOMEN: Soft, no masses. LABORATORY DATA: White count 8.3, hemoglobin and hematocrit are 9 and 28, platelet count is normal. Creatinine is 4, BUN 131. IMPRESSION: New onset of renal failure. Abdominal x-ray findings suggestive of fluid overload versu s pneumonia. Continue dialysis. Antibiotics, Levaquin. We will follow.
[2017-08-29] MEDS: Bisacodyl 5 MG TAB PO PRN (13:34)
--- NOTE | 2017-08-29 17:04 | PDOC.PN ---
- Subjective Encounter Start Date: 08/29/17 Encounter Start Time: 17:03 Patient seen and examined. No new complaints. No overnight events - Objective MAR Reviewed: Yes Vital Signs & Weight: Vital Signs (12 hours) Temp Pulse Resp BP Pulse Ox 08/29/17 16:00 97 08/29/17 15:18 84 08/29/17 15:00 98.1 F 84 22 H 135/58 L 97 08/29/17 10:12 92 20 137/68 98 08/29/17 08:00 99.0 F 81 20 08/29/17 07:00 99.0 F 81 20 124/61 94 L Weight Weight 164 lb 8 oz I&O: 08/28/17 08/29/17 08/30/17 06:59 06:59 06:59 Intake Total 1955 Output Total 2600 Balance -645 Result Diagrams: 08/29/17 04:30 08/29/17 04:30 Phys Exam - Physical Examination Constitutional: NAD HEENT: PERRLA Neck: no JVD Respiratory: no wheezing Cardiovascular: no significant murmur Gastrointestinal: non-tender Musculoskeletal: pulses present Neurological: normal sensation Psychiatric: A&O x 3 Dx/Plan (1) PNA (pneumonia) Code(s): J18.9 - PNEUMONIA, UNSPECIFIED ORGANISM Status: Acute (2) Elevated troponin Code(s): R74.8 - ABNORMAL LEVELS OF OTHER SERUM ENZYMES Status: Acute (3) Acute on chronic diastolic CHF (congestive heart failure) Code(s): I50.33 - ACUTE ON CHRONIC DIASTOLIC (CONGESTIVE) HEART FAILURE Status : Acute (4) Hypertension Code(s): I10 - ESSENTIAL (PRIMARY) HYPERTENSION Status: Chronic Qualifiers: Hypertension type: essential hypertension Qualified Code(s): I10 - Essential (primary) hypertension Comment: Not well controlled, will adjust meds. Hold off on PA inhibitor for now until renal function stabilized. (5) PVD (peripheral vascular disease) Code(s): I73.9 - PERIPHERAL VASCULAR DISEASE, UNSPECIFIED Status: Chronic Comment: S/P CEA on right yesterday. BP running high, on NTG and Nipride for control. (6) CAD (coronary artery disease) Code(s): I25.10 - ATHSCL HEART DISEASE OF [place] CORONARY ARTERY W/O ANG PCTRS Status: Acute (7) COPD (chronic obstructive pulmonary disease) Status: Acute (8) Hypokalemia Code(s): E87.6 - HYPOKALEMIA Status: Acute (9) Prerenal azotemia Code(s): R79.89 - OTHER SPECIFIED ABNORMAL FINDINGS OF BLOOD CHEMISTRY Status : Acute - Plan * doing better after dialysis * card and nephrology input appreciated * f/u labs
[2017-08-29] MEDS: Atorvastatin Calcium 20 MG TAB PO SCH (20:53)
[2017-08-30] MEDS: Acetaminophen/Codeine 30-300mg Tablet PO SCH ×2 (06:49→14:23)
[2017-08-30] MEDS: NIFEdipine XL 60 MG TAB PO SCH ×2 (09:25→20:16)
[2017-08-30] MEDS: hydrALAZINE 25 MG TAB PO SCH ×3 (09:27→20:17)
[2017-08-30] MEDS: Heparin 5,000 UNITS/ML VIAL SC SCH ×3 (09:27→20:16)
--- NOTE | 2017-08-30 11:24 | PDOC.PN ---
- Subjective Encounter Start Date: 08/30/17 Encounter Start Time: 11:23 Patient seen and examined. No new complaints. No overnight events - Objective MAR Reviewed: Yes Vital Signs & Weight: Vital Signs (12 hours) Temp Pulse Resp BP BP Pulse Ox 08/30/17 09:27 95 135/67 08/30/17 09:25 93 135/67 08/30/17 07:06 99.1 F 112 H 24 H 123/68 98 08/30/17 04:00 97.8 F 89 16 130/60 98 08/30/17 00:00 88 24 H 135/61 97 Weight Weight 163 lb 3.2 oz I&O: 08/29/17 08/30/17 08/31/17 06:59 06:59 06:59 Intake Total 1955 590 Output Total 1714 9321 Balance -055 -7987 Result Diagrams: 08/29/17 04:30 08/29/17 04:30 Phys Exam - Physical Examination Constitutional: NAD HEENT: PERRLA Neck: no JVD Respiratory: no rales Cardiovascular: no significant murmur Gastrointestinal: non-tender Musculoskeletal: pulses present Neurological: moves all 4 limbs Psychiatric: A&O x 3 Dx/Plan (1) PNA (pneumonia) Code(s): J18.9 - PNEUMONIA, UNSPECIFIED ORGANISM Status: Acute (2) Elevated troponin Code(s): R74.8 - ABNORMAL LEVELS OF OTHER SERUM ENZYMES Status: Acute (3) Acute on chronic diastolic CHF (congestive heart failure) Code(s): I50.33 - ACUTE ON CHRONIC DIASTOLIC (CONGESTIVE) HEART FAILURE Status : Acute (4) Hypertension Code(s): I10 - ESSENTIAL (PRIMARY) HYPERTENSION Status: Chronic Qualifiers: Hypertension type: essential hypertension Qualified Code(s): I10 - Essential (primary) hypertension Comment: Not well controlled, will adjust meds. Hold off on PA inhibitor for now until renal function stabilized. (5) PVD (peripheral vascular disease) Code(s): I73.9 - PERIPHERAL VASCULAR DISEASE, UNSPECIFIED Status: Chronic Comment: S/P CEA on right yesterday. BP running high, on NTG and Nipride for control. (6) CAD (coronary artery disease) Code(s): I25.10 - ATHSCL HEART DISEASE OF [place] CORONARY ARTERY W/O ANG PCTRS Status: Acute (7) COPD (chronic obstructive pulmonary disease) Status: Acute (8) Hypokalemia Code(s): E87.6 - HYPOKALEMIA Status: Acute (9) Prerenal azotemia Code(s): R79.89 - OTHER SPECIFIED ABNORMAL FINDINGS OF BLOOD CHEMISTRY Status : Acute (10) ESRD (end stage renal disease) Code(s): N18.6 - END STAGE RENAL DISEASE Status: Acute Comment: on hd - Plan * continue current rx * card and renal input appreciated
--- NOTE | 2017-08-30 11:31 | PRG ---
DATE OF SERVICE: 08/30/2017 SUBJECTIVE: This morning, he is awake, alert, responsive, less short of breath and is going into atr ial fibrillation at rate 130-140. OBJECTIVE: VITAL SIGNS: Temperature 99, O2 sat 90%, respiration 24, blood pressure 123/68. He was dialyzed yes terday. CHEST: Chest reveals decreased breath sounds, no wheezing. CARDIAC: Normal S1, S2. No gallops. ABDOMEN: Soft, no masses. IMPRESSION: 1. Chronic renal failure. 2. Supraventricular tachycardia. 3. Left upper lung pneumonia versus congestive heart failure. PLAN: Input from Cardiology. He can probably be restarted on his home beta christiano.
--- NOTE | 2017-08-30 13:17 | PRG ---
DATE OF SERVICE: 08/30/2017 SUBJECTIVE: The patient was seen during dialysis and tolerating well. Complains of fatigue. OBJECTIVE: GENERAL: This is a well-built male, in no apparent distress. VITAL SIGNS: Temperature 98.1, pulse 95, respiratory rate 18, and blood pressure 135/67. HEENT: Atraumatic, normocephalic. Oral mucosa is moist. NECK: Supple. CARDIOVASCULAR: S1, S2 heard. Rate and rhythm regular. RESPIRATORY: Clear to auscultation. GASTROINTESTINAL: Abdomen is soft. MUSCULOSKELETAL: 2+ edema. DERMATOLOGIC: No skin rash. NEUROLOGIC: Alert and awake and oriented x3. No focal neurologic deficits. Moving all the extremit ies. PSYCHIATRIC: Mood and affect normal. LABORATORY DATA: Not done today. ASSESSMENT AND PLAN: 1. End-stage renal disease, started on hemodialysis during this admission. He is tolerating well. We will plan for fistula tomorrow. Follow his case management for outpatient placement. Continue di alysis on Thursday, Thursday, and Thursday as tolerated. The patient will have 2 hours of dialysis for ultrafiltration. 2. Anemia. Continue KARTIK with dialysis. Monitor hemoglobin. 3. Hypertension, stable. 4. Edema. Remove fluid with dialysis as tolerated. 5. Immunological workup pending. Urine protein was unremarkable. We will follow.
[2017-08-30] MEDS: Docusate 100 MG CAP PO SCH ×2 (14:21→20:17)
[2017-08-30] MEDS: Bisacodyl 5 MG TAB PO PRN (14:22)
[2017-08-30] MEDS: Atorvastatin Calcium 20 MG TAB PO SCH (20:17)
[2017-08-31] MEDS: Acetaminophen/Codeine 30-300mg Tablet PO SCH ×3 (01:00→15:14)
[2017-08-31 05:34] LABS: #Lymphocytes 1.2 thou/uL (1.20-3.40); #Monocytes 1.3 thou/uL (0.11-0.59); #Neutrophils 8.9 thou/uL (1.40-6.50); %Basophils 0.1 % (0.0-1.0); %Eosinophils 0.4 % (0.0-10.0); %Lymphocytes 10.1 % (21.0-51.0); Hematocrit 30.2 % (42.0-52.0); Mean Platelet Volume 9.4 fL (7.4-10.4); Red Blood Cell (RBC) Count 4.07 mill/uL (4.70-6.10); White Blood Cell (WBC) Count 11.4 thou/uL (4.8-10.8)
[2017-08-31 05:49] LABS: Anion Gap 15 mmol/L (10-20); BUN (Urea Nitrogen) 64 mg/dL (8.4-25.7); Calc. Creatinine Clearance 24 mL/min (70-130); Calcium 9.4 mg/dL (7.8-10.44); Carbon Dioxide 26 mmol/L (23-31); Chloride 101 mmol/L (98-107); Estimated GFR-MDRD 22
--- NOTE | 2017-08-31 09:01 | PRG ---
DATE OF SERVICE: 08/31/2017 SUBJECTIVE: This morning is having back pain, but no shortness of breath. PHYSICAL EXAMINATION: VITAL SIGNS: Respirations 20, sats 97%, temperature 98, blood pressure 150/68. CHEST: Chest reveals decreased breath sounds, no wheezing. CARDIAC: Normal S1, S2. ABDOMEN: Soft, no masses. LABORATORY DATA: White count 11,000, H&H is 9 and 30, platelet count 75. BUN and creatinine 68 and 2.0. IMPRESSION: 1. Chronic renal failure. 2. Possibly pneumonia. 3. Respiratory failure, much improved. PLAN: Continue oral antibiotics. He can be transferred out of [facility] to a regular medical floor.
--- NOTE | 2017-08-31 09:10 | PRG ---
DATE OF SERVICE: 08/31/2017 SUBJECTIVE: This is a 71-year-old gentleman being seen for end-stage renal disease. The patient den ies any nausea, vomiting or chest pain. PHYSICAL EXAMINATION: GENERAL: Patient is awake, alert. VITAL SIGNS: Afebrile, pulse 90, breathing 16, blood pressure 140/62. OBJECTIVE: See above. Awake, alert, in no acute distress. GENERAL APPEARANCE AND MENTAL STATUS: Fair. HEAD/NECK: Normocephalic. Atraumatic. EYES: EOMI. No deformity. EARS: Clear. No ulcers. NOSE: Intact. No lesions. MOUTH: Clear. No discharge. THROAT: Clear. No exudate. LUNGS: Clear. No crackles. CARDIAC: S1, S2. No rub. ABDOMEN: Benign. BS+. GENITALIA/RECTUM: Howard absent. BACK/EXTREMITIES: Edema 0+ Ulcer- NEUROLOGICAL: Alert and motor intact. SKIN: Rash- Bruise- LYMPHATICS: Edema- Ulcer- LABORATORY: Showed hemoglobin 9.6. ASSESSMENT AND RECOMMENDATIONS: 1. Stage 6 chronic kidney disease. We will plan hemodialysis tomorrow. 2. Hypertension, stable. 3. Anemia, stable. 4. Medications based on GFR are appropriate.
[2017-08-31] MEDS: Calcitriol 0.25 MCG CAP PO SCH (09:11)
[2017-08-31] MEDS: Docusate 100 MG CAP PO SCH ×2 (09:11→22:20)
[2017-08-31] MEDS: Heparin 5,000 UNITS/ML VIAL SC SCH ×3 (09:12→22:21)
[2017-08-31] MEDS: NIFEdipine XL 60 MG TAB PO SCH ×2 (09:12→22:20)
[2017-08-31] MEDS: hydrALAZINE 25 MG TAB PO SCH ×3 (09:12→22:28)
[2017-08-31] MEDS ORDERED: Fentanyl 100 MCG/2 ML VIAL ONE (10:05)
[2017-08-31] MEDS ORDERED: Bupivacaine/Epinephrine 0.25% 30 ML VIAL ONE (10:19)
[2017-08-31] MEDS ORDERED: Protamine Sulfate 50 MG/5 ML VIAL ONE (10:19)
[2017-08-31] MEDS ORDERED: Heparin 5,000 UNITS/ML VIAL ONE (10:19)
[2017-08-31] MEDS ORDERED: Propofol 200 MG/20 ML VIAL ONE (11:30)
[2017-08-31] MEDS ORDERED: traMADol HCl 50 MG TAB PO PRN ×2 (12:04)
[2017-08-31] MEDS ORDERED: Acetaminophen 500 MG TAB PO PRN (12:04)
--- NOTE | 2017-08-31 12:53 | OP ---
DATE OF PROCEDURE: 08/31/2017 PREOPERATIVE DIAGNOSIS: End-stage renal disease. POSTOPERATIVE DIAGNOSIS: End-stage renal disease. PROCEDURES: Left wrist [place] fistula, 3.5 mm coronary dilator outflow, clips placed on prominent co llateral distal lateral. ANESTHESIA: Regional anesthesia and sedation. ESTIMATED BLOOD LOSS: 25 mL. BLOOD TRANSFUSED. None. PROCEDURE IN DETAIL: The patient was taken to the operating room where under regional anesthesia and intravenous sedation, left upper extremity was prepared with ChloraPrep, draped in routine fashion. Preoperative ultrasound vein mapping suggested 2 mm vein throughout. After the block, the vein was well distended. There was an obvious collateral distal lateral. Incision was made between the radia l artery and cephalic vein at the wrist, carried down through the skin and subcutaneous tissue and th e cephalic vein dissected free, ligating the stump on the hand side with 3-0 silk tie, dividing clamp ed with a branch between 4-0 silk ties and clips, spatulating it and interrogated with coronary dilat ors, passing coronary dilators from a 2 mm to a 4 mm coronary dilator without obstruction throughout its length. Dissection carried out proximally identifying the distal lateral branch, placing 2 clips on it. It was flushed with heparinized saline solution. The patient given 5000 units of heparin in travenously. After adequate circulation time, the radial artery distally was dissected free, clamped proximally and distally with vascular clamps and arteriotomy made sharply and elongated with Roberts s cissors for a 2 cm arteriotomy. Vein accordingly spatulated and an end vein to side radial artery an astomosis created with continuous suture of 6-0 Prolene. After completing anastomosis, Surgicel appl ied. Good hemostasis noted. The patient was given 25 mg of protamine intravenously by Anesthesia. There was a good Doppler signal throughout the cephalic vein length and had a good thrill throughout its length. Good hemostasis noted. Subcutaneous tissues approximated with 3-0 Monocryl, skin with s ubdermal 4-0 Monocryl and DermaGlue applied.
--- NOTE | 2017-08-31 13:20 | PDOC.PN ---
- Subjective Encounter Start Date: 08/31/17 Encounter Start Time: 08:45 -: old records requested/rev Pt seen and examined, chart reviewed in its entirety. This is my first visit with this patient. Case discussed with Dr Ruiz, Dr Gonzáles. to OR later this morning with Dr Zaragoza for fistula creations. camelia HD vias R chest permcath, last saw 2 liters of fluid removal yesterday No F/C, no N/V/D/C, no CP or SOB, complaint of chornic back pain due ot lying in bed so much. no orthopnea, PND 10 point ROS performed and all systems neg except as above - Objective Resuscitation Status: FULL MAR Reviewed: Yes Vital Signs & Weight: Vital Signs (12 hours) Temp Pulse Resp BP Pulse Ox 08/31/17 09:12 100 08/31/17 08:00 98.8 F 100 18 98 08/31/17 07:57 98.8 F 100 22 H 150/68 H 97 08/31/17 04:55 98.6 F 98 18 140/62 99 Weight Weight 156 lb 1.6 oz I&O: 08/30/17 08/31/17 09/01/17 06:59 06:59 06:59 Intake Total 590 1170 Output Total 2850 2500 350 Balance -2260 -1330 -350 Result Diagrams: 08/31/17 05:20 08/31/17 05:20 Additional Labs: Accuchecks 08/30/17 19:55 POC Glucose 122 H Radiology Reviewed by me: Yes EKG Reviewed by me: Yes Phys Exam - Physical Examination Constitutional: NAD HEENT: PERRLA, moist MMs, sclera anicteric, oral pharynx no lesions Neck: no nodes, no JVD, supple, full ROM Respiratory: no wheezing, no rales, no rhonchi, clear to auscultation bilateral Cardiovascular: RRR, no rub, gallop 3/6 HSM apically Gastrointestinal: soft, non-tender, no distention, positive bowel sounds Musculoskeletal: pulses present, edema present Neurological: non-focal, normal sensation, moves all 4 limbs Lymphatic: no nodes Psychiatric: normal affect, A&O x 3 Skin: no rash, normal turgor, cap refill <2 seconds Deviation from normal: permcat site C/D/I Dx/Plan (1) Acute on chronic diastolic CHF (congestive heart failure) Code(s): I50.33 - ACUTE ON CHRONIC DIASTOLIC (CONGESTIVE) HEART FAILURE Status : Acute (2) CAD (coronary artery disease) Code(s): I25.10 - ATHSCL HEART DISEASE OF [place] CORONARY ARTERY W/O ANG PCTRS Status: Acute Qualifiers: Coronary Disease-Associated Artery/Lesion type: [place] artery [place] vs. transplanted heart: [place] heart Associated angina: without angina Qualified Code(s): I25.10 - Atherosclerotic heart disease of [place] coronary artery without angina pectoris (3) COPD (chronic obstructive pulmonary disease) Status: Acute Qualifiers: COPD type: unspecified COPD Qualified Code(s): J44.9 - Chronic obstructive pulmonary disease, unspecified (4) ESRD (end stage renal disease) Code(s): N18.6 - END STAGE RENAL DISEASE Status: Acute Comment: on hd now. no Rx today, to OR. home when cleared by crista and outpatient HD arranged. to floor when ok with pulm and Gen Surgery (5) Elevated troponin Code(s): R74.8 - ABNORMAL LEVELS OF OTHER SERUM ENZYMES Status: Resolved (6) Hypokalemia Code(s): E87.6 - HYPOKALEMIA Status: Resolved (7) PNA (pneumonia) Code(s): J18.9 - PNEUMONIA, UNSPECIFIED ORGANISM Status: Resolved Qualifiers: Pneumonia type: due to unspecified organism Laterality: unspecified laterality Lung location: unspecified part of lung Qualified Code(s): J18.9 - Pneumonia, unspecified organism (8) Prerenal azotemia Code(s): R79.89 - OTHER SPECIFIED ABNORMAL FINDINGS OF BLOOD CHEMISTRY Status : Resolved (9) Atrial paroxysmal tachycardia Status: Chronic Comment: PSVT, maybe short periods of AFIB. Increased beta- christiano to control. - Plan cont current plan of care, plan discussed w/ family, PT/OT, social media community manager, out of bed/ambulate * .
[2017-08-31 15:20] LABS: Kappa Lambda Light Chain Ratio 1.22 (0.26-1.65)
[2017-08-31] MEDS ORDERED: CEFAZOLIN/Water 2 GM/20 ML SYRINGE SLOW IVP SCH (18:15)
[2017-08-31] MEDS ORDERED: Furosemide 40 MG/4 ML VIAL SLOW IVP SCH (21:00)
--- NOTE | 2017-08-31 21:03 | RAD ---
PORTABLE CHEST: History: Shortness of breath, cough. Follow up. Comparison: 08-28-17 FINDINGS: Dense confluent infiltrate in the left upper lobe is again noted. This may be slightly improved from 08-28-17. There is vascular congestion and engorgement which appears unchanged. There is focal infiltrate in th e right lung base which may be slightly improved. There is patchy infiltrate in the left lung base ag ain noted. Central lines are unchanged and overlie the SVC and right atrium. IMPRESSION: Bilateral infiltrates and mild vascular engorgement again noted, as described. POS: [facility]
[2017-08-31 21:07] LABS: Oxyhemoglobin 61.3 % (94.0-97.0); Sodium 140 mmol/L (135-148)
[2017-08-31 21:11] LABS: Mode RA; Modified Allen's Test POSITIVE; Vent NO
[2017-08-31] MEDS: Atorvastatin Calcium 20 MG TAB PO SCH (22:20)
[2017-09-01] MEDS: Acetaminophen/Codeine 30-300mg Tablet PO SCH ×4 (02:08→23:22)
--- NOTE | 2017-09-01 02:09 | PDOC.PN ---
- Subjective Encounter Start Date: 09/01/17 Encounter Start Time: 02:00 CTSP due to elevated hr. pt c/o some dyspnea earlier but improving now - Objective Vital Signs & Weight: Vital Signs (12 hours) Temp Pulse Resp BP BP Pulse Ox 09/01/17 00:02 99.7 F H 132 H 28 H 123/87 97 08/31/17 22:28 106 H 155/74 H 08/31/17 22:20 106 H 161/75 H 08/31/17 20:15 98.8 F 106 H 24 H 94 L 08/31/17 19:26 98.8 F 113 H 24 H 163/72 H 94 L 08/31/17 18:06 97.7 F 104 H 20 158/74 H 92 L 08/31/17 15:41 103 H 22 H 142/70 H 99 08/31/17 15:14 100 Weight Weight 156 lb 1.6 oz I&O: 08/30/17 08/31/17 09/01/17 06:59 06:59 06:59 Intake Total 590 1170 Output Total 2850 2500 500 Balance -2260 -1330 -500 Result Diagrams: 08/31/17 05:20 08/31/17 05:20 Phys Exam - Physical Examination HEENT: moist MMs Neck: no JVD positive crackles, no rhonchi, diminished at bases s1 s2 present, tachy, irregular, no murmur Gastrointestinal: soft, non-tender no guarding alert, oriented, follows commands Dx/Plan - Plan * . Pt is 71 yrs old male 1. AFIB RVR 2. Pulmonary edema 3. htn 4. esrd plan: 1. Will start patient on cardizem drip at 5mg/hr and will give 10mg iv x1. 2. Will give another 60mg iv lasix x 1. Made 375ml output with 40mg iv lasix from earlier. Will notfy neph in am for early HD 3. Continue ventimask and wean as tolertaed 4. BP stable D/W pt & RN
[2017-09-01] MEDS ORDERED: Furosemide 100 MG/10 ML VIAL SLOW IVP SCH (02:15)
[2017-09-01 09:19] LABS: A/G Ratio 0.8 (0.7-1.7); Albumin 2.8 g/dL (2.9-4.4); Alpha 1 0.4 g/dL (0.0-0.4); Alpha 2 1.1 g/dL (0.4-1.0); Beta 0.9 g/dL (0.7-1.3); Gamma 1.2 g/dL (0.4-1.8); Globulin, Total 3.6 g/dL (2.2-3.9); M-Spike Not Observed g/dL (Not Observed)
--- NOTE | 2017-09-01 09:31 | PRG ---
DATE OF SERVICE: 09/01/2017 SUBJECTIVE: This is a 71-year-old gentleman being seen for end-stage renal disease. The patient denies any nausea, vomiting or chest pain. PHYSICAL EXAMINATION: VITAL SIGNS: The patient is febrile, T-max was 100.4, pulse 130, blood pressure 144/78. OBJECTIVE: See above. Awake, alert, in no acute distress. GENERAL APPEARANCE AND MENTAL STATUS: Fair. HEAD/NECK: Normocephalic. Atraumatic. EYES: EOMI. No deformity. EARS: Clear. No ulcers. NOSE: Intact. No lesions. MOUTH: Clear. No discharge. THROAT: Clear. No exudate. LUNGS: Clear. No crackles. CARDIAC: S1, S2. No rub. ABDOMEN: Benign. BS+. GENITALIA/RECTUM: Howard absent. BACK/EXTREMITIES: Edema 0+ Ulcer- NEUROLOGICAL: Alert and motor intact. SKIN: Rash- Bruise- LYMPHATICS: Edema- Ulcer- LABORATORY: Hemoglobin 9.1, potassium 3.2. IMPRESSION: 1. Stage 6 chronic kidney disease. Continue hemodialysis. 2. Hypokalemia, us a 4 K bath. 3. Anemia, stable. 4. Medications based on glomerular filtration rate are appropriate. MTDD
[2017-09-01] MEDS ORDERED: predniSONE 20 MG TAB PO SCH (10:30)
[2017-09-01] MEDS: Docusate 100 MG CAP PO SCH ×2 (11:17→20:52)
[2017-09-01] MEDS: NIFEdipine XL 60 MG TAB PO SCH ×2 (11:17→20:52)
[2017-09-01] MEDS: Heparin 5,000 UNITS/ML VIAL SC SCH ×3 (11:18→20:53)
[2017-09-01] MEDS: hydrALAZINE 25 MG TAB PO SCH ×3 (11:19→22:16)
[2017-09-01] MEDS: Polyethylene Glycol 3350 17 GM Packet PO SCH (11:19)
[2017-09-01 11:21] LABS: Beta-Ur 26.3 % (.); Gamma-Ur 25.9 % (.); Protein, Urine 27.1 mg/dL (Not Estab.)
--- NOTE | 2017-09-01 12:51 | PDOC.PN ---
- Subjective Encounter Start Date: 09/01/17 Encounter Start Time: 10:20 -: old records requested/rev Pt seen and examined in HD this morning, 20 minutes to go, 2L fluid pulled. Pt did well with surgery yesterday, veins larger than expected, Dr Zaragoza pleased with results. Pt sore at op site, no drainage or bleeding. Last night, mailroom assistant called at 0200 for acute onset of Afib with RVr. started on Cardizem gtt. HD scheduled for early hismonirng. post HD, no improvement in HR, cardiology saw, no orders. Will increase to 10mg /hr for now, monitor BP. may need to dig or use BBlockade to try for rate control. No F/C, no N/V/D/C,no bleeding, no CP, no SOb now. 10 point ROS performed and neg for all except as stated above - Objective Resuscitation Status: FULL 0 MAR Reviewed: Yes Vital Signs & Weight: Vital Signs (12 hours) Temp Pulse Resp BP Pulse Ox 09/01/17 11:32 98.6 F 130 H 20 96 09/01/17 11:19 130 H 09/01/17 11:10 97.7 F 89 18 134/74 95 09/01/17 06:00 98.6 F 09/01/17 03:54 100.4 F H 130 H 28 H 145/78 H 95 09/01/17 02:45 98 H 130/72 09/01/17 02:43 132 H 137/81 Weight Weight 141 lb 11.2 oz I&O: 08/31/17 09/01/17 09/02/17 06:59 06:59 06:59 Intake Total 1170 Output Total 2500 875 Balance -1330 -875 Result Diagrams: 08/31/17 05:20 08/31/17 05:20 Radiology Reviewed by me: Yes EKG Reviewed by me: Yes Phys Exam - Physical Examination Constitutional: NAD HEENT: PERRLA, moist MMs, sclera anicteric, oral pharynx no lesions Neck: no nodes, no JVD, supple, full ROM Respiratory: no wheezing, no rales, no rhonchi, clear to auscultation bilateral Cardiovascular: no significant murmur, no rub tachycardic, irregular Gastrointestinal: soft, non-tender, no distention, positive bowel sounds Musculoskeletal: no edema, pulses present Neurological: non-focal, normal sensation, moves all 4 limbs Lymphatic: no nodes Psychiatric: normal affect, A&O x 3 Skin: no rash, normal turgor, cap refill <2 seconds Deviation from normal: left wrist incisional site swollen, but C/D/I, no drainage or bleeding Dx/Plan (1) Acute on chronic diastolic CHF (congestive heart failure) Code(s): I50.33 - ACUTE ON CHRONIC DIASTOLIC (CONGESTIVE) HEART FAILURE Status : Acute Comment: fluid removal good with HD. CCM (2) CAD (coronary artery disease) Code(s): I25.10 - ATHSCL HEART DISEASE OF [place] CORONARY ARTERY W/O ANG PCTRS Status: Acute Qualifiers: Coronary Disease-Associated Artery/Lesion type: [place] artery [place] vs. transplanted heart: [place] heart Associated angina: without angina Qualified Code(s): I25.10 - Atherosclerotic heart disease of [place] coronary artery without angina pectoris (3) COPD (chronic obstructive pulmonary disease) Status: Acute Qualifiers: COPD type: unspecified COPD Qualified Code(s): J44.9 - Chronic obstructive pulmonary disease, unspecified (4) ESRD (end stage renal disease) Code(s): N18.6 - END STAGE RENAL DISEASE Status: Acute Comment: on hd now. HD today, 2+ liters of fluid pulled. Fistula surgery done, expect good results when matures in 6-[address] Dalton assistance (5) Elevated troponin Code(s): R74.8 - ABNORMAL LEVELS OF OTHER SERUM ENZYMES Status: Resolved (6) Hypokalemia Code(s): E87.6 - HYPOKALEMIA Status: Resolved (7) PNA (pneumonia) Code(s): J18.9 - PNEUMONIA, UNSPECIFIED ORGANISM Status: Resolved Qualifiers: Pneumonia type: due to unspecified organism Laterality: unspecified laterality Lung location: unspecified part of lung Qualified Code(s): J18.9 - Pneumonia, unspecified organism (8) Prerenal azotemia Code(s): R79.89 - OTHER SPECIFIED ABNORMAL FINDINGS OF BLOOD CHEMISTRY Status : Resolved (9) Atrial paroxysmal tachycardia Status: Chronic Comment: On cardizem gtt, bblockade. follow up on cardiology recommendations - Plan cont current plan of care, PT/OT, social studies department chair * .
[2017-09-01 15:29] LABS: Anion Gap 15 mmol/L (10-20); BUN (Urea Nitrogen) 35 mg/dL (8.4-25.7); Calc. Creatinine Clearance 29 mL/min (70-130); Calcium 9.5 mg/dL (7.8-10.44); Carbon Dioxide 27 mmol/L (23-31); Chloride 100 mmol/L (98-107); Estimated GFR-MDRD 31
--- NOTE | 2017-09-01 16:17 | PRG ---
DATE OF SERVICE: 09/01/2017 SUBJECTIVE: This morning, he is being dialyzed. No shortness of breath, cough or wheezing. OBJECTIVE: VITAL SIGNS: Sats are 95% on 2 liters, respirations 28, pulse 130, temperature 100.4 and blood press ure 145/78. CHEST: Bilateral rhonchi. CARDIAC: Normal S1 and S2. No gallops. ABDOMEN: Soft. No masses. LABORATORY DATA: He had blood gas done yesterday; pO2 Sat Calc/Cy was 63, p02 34, pCO2 of 32 and p H 7.47. IMPRESSION: Questionable left-sided pneumonia, respiratory failure and congestive heart failure. PLAN: Continue p.o. antibiotics, neb treatments and low dose steroids. We will follow.
[2017-09-01] MEDS: Epoetin (ESRD) 10,000 UNITS/ML VIAL IVP SCH (19:02)
[2017-09-01] MEDS: Atorvastatin Calcium 20 MG TAB PO SCH (20:52)
--- NOTE | 2017-09-01 20:53 | PRG ---
DATE OF SERVICE: 09/01/2017 Mr. Goins is doing well. Left [place] fistula has a good thrill and bruit. Wound looks good. At thi s point, I will see him as needed this hospitalization. Please call if necessary. He should follow up in my office in 3-4 weeks. He should exercise his left arm. He should use it without restriction s.
[2017-09-02 05:16] LABS: #Lymphocytes 1.6 thou/uL (1.20-3.40); #Monocytes 1.4 thou/uL (0.11-0.59); #Neutrophils 11.7 thou/uL (1.40-6.50); %Basophils 0.1 % (0.0-1.0); %Eosinophils 0.2 % (0.0-10.0); %Lymphocytes 10.6 % (21.0-51.0); %Monocytes 9.3 % (0.0-10.0); Hematocrit 29.1 % (42.0-52.0); Mean Platelet Volume 9.3 fL (7.4-10.4); Red Blood Cell (RBC) Count 3.89 mill/uL (4.70-6.10); White Blood Cell (WBC) Count 14.7 thou/uL (4.8-10.8)
[2017-09-02 05:32] LABS: Anion Gap 14 mmol/L (10-20); BUN (Urea Nitrogen) 57 mg/dL (8.4-25.7); Calc. Creatinine Clearance 21 mL/min (70-130); Calcium 9.6 mg/dL (7.8-10.44); Carbon Dioxide 28 mmol/L (23-31); Chloride 99 mmol/L (98-107); Estimated GFR-MDRD 21
[2017-09-02] MEDS: Acetaminophen/Codeine 30-300mg Tablet PO SCH ×3 (05:43→21:13)
--- NOTE | 2017-09-02 08:52 | PRG ---
DATE OF SERVICE: 09/02/2017 SUBJECTIVE: This is a 71-year-old gentleman being seen for end-stage renal disease. Patient denies any nausea, vomiting or chest pain. PHYSICAL EXAMINATION: GENERAL: Patient is awake, alert. VITAL SIGNS: Afebrile, pulse 94, breathing at 16, blood pressure 122/60. HEAD/NECK: Normocephalic. Atraumatic. EYES: EOMI. No deformity. EARS: Clear. No ulcers. NOSE: Intact. No lesions. MOUTH: Clear. No discharge. THROAT: Clear. No exudate. LUNGS: Clear. No crackles. CARDIAC: S1, S2. No rub. ABDOMEN: Benign. BS+. GENITALIA/RECTUM: [place] absent. BACK/EXTREMITIES: Edema 0+ Ulcer- NEUROLOGICAL: Alert and motor intact. SKIN: Rash- Bruise- LYMPHATICS: Edema- Ulcer- LABORATORY DATA: Show potassium of 3.3. ASSESSMENT AND RECOMMENDATIONS: 1. Stage 6 chronic kidney disease, continue hemodialysis. 2. Hypertension, stable. 3. Anemia, stable. 4. Medications based on glomerular filtration rate are appropriate. 5. Hypokalemia. Recommend high potassium diet. MTDD
--- NOTE | 2017-09-02 09:15 | PRG ---
DATE OF SERVICE: 09/02/2017 SUBJECTIVE: Mr. Goins continues with paroxysmal atrial fibrillation. He is now in sinus rhythm. He was on IV Cardizem, which has been discontinued. I recently attempted to place him on Multaq for pa roxysmal atrial fibrillation, but appears to have interaction with Levaquin and Zofran. He states he feels much better today than he did yesterday. He is symptomatic when in atrial fibrillation. PHYSICAL EXAMINATION: VITAL SIGNS: Blood pressure 105/54, pulse 88, temperature 98.4. LUNGS: Clear to auscultation. CARDIAC: Regular rate and rhythm. ABDOMEN: Soft, nontender, nondistended. EXTREMITIES: No edema. PERTINENT LABORATORY DATA: Hemoglobin 8.8, creatinine 2.98. IMPRESSION: 1. Paroxysmal atrial fibrillation. 2. End-stage renal disease. RECOMMENDATIONS: I discussed the case with Dr. Gunnar Aguayo on changing his Levaquin to a different a ntibiotic. He will. Once that change is made will then add Multaq. He also need anticoagulation th era and will discuss novel oral anticoagulation therapy with his catalyst unit operator. Otherwise, if not f elt to be a candidate would then proceed with Coumadin.
--- NOTE | 2017-09-02 09:54 | PRG ---
DATE OF SERVICE: 09/02/2017 He is being dialyzed today. He appears to be in no distress. He is walking. He is eating. PHYSICAL EXAMINATION: VITAL SIGNS: Sats are 90%, respiration 14, temperature 98, blood pressure 120/60. CHEST: No wheezing. CARDIAC: Normal S1, S2. LABORATORY DATA: White count 14,000, H&H 8 and 20, platelet count is normal. Creatinine 2.0. IMPRESSION: 1. Chronic renal failure. 2. Respiratory failure which improved. PLAN: From a pulmonary standpoint of view he can be discharged to home anytime. Continue dialysis. Empiric antibiotics for his presumed pneumonia. Low dose steroid taper for a week.
--- NOTE | 2017-09-02 10:23 | PDOC.PN ---
- Subjective Encounter Start Date: 09/02/17 Encounter Start Time: 08:30 -: old records requested/rev Pt seen and examined, case discussed with Dr marlene Lew and Dr Ruiz. Pt on HD now, tolerating well. Has remained in SR since yesterday morning, trnasitioned to po cardizem. Cardiology plans to put on Multaq. I have stopped the Levoflox to reduce the risk of arrhythmia due to prolonged QT. no F/C, no N/V/D/C. left FA surgical site without drainage or discomfort. 10 point ROS performed and neg x as above Pulmonary, Renal, Cardiology notes reviewed - Objective Resuscitation Status: FULL MAR Reviewed: Yes Vital Signs & Weight: Vital Signs (12 hours) Temp Pulse Resp BP Pulse Ox 09/02/17 03:25 98.8 F 86 24 H 122/60 95 09/01/17 23:48 98.4 F 88 24 H 126/60 93 L Weight Weight 145 lb 11.2 oz I&O: 09/01/17 09/02/17 09/03/17 06:59 06:59 06:59 Output Total 875 75 Balance -875 -75 Result Diagrams: 09/02/17 04:00 09/02/17 04:00 Radiology Reviewed by me: Yes EKG Reviewed by me: Yes Phys Exam - Physical Examination Constitutional: NAD HEENT: PERRLA, moist MMs, sclera anicteric, oral pharynx no lesions Neck: no nodes, no JVD, supple, full ROM Respiratory: no wheezing, no rales, no rhonchi, clear to auscultation bilateral Cardiovascular: RRR, no significant murmur, no rub Gastrointestinal: soft, non-tender, no distention, positive bowel sounds Musculoskeletal: no edema, pulses present Neurological: non-focal, normal sensation, moves all 4 limbs Lymphatic: no nodes Psychiatric: normal affect, A&O x 3 Skin: no rash, normal turgor, cap refill <2 seconds Deviation from normal: left FA fistual with palpable thrill, no bruit, incision intact. Dx/Plan (1) Acute on chronic diastolic CHF (congestive heart failure) Code(s): I50.33 - ACUTE ON CHRONIC DIASTOLIC (CONGESTIVE) HEART FAILURE Status : Acute Comment: fluid removal good with HD. CCM (2) CAD (coronary artery disease) Code(s): I25.10 - ATHSCL HEART DISEASE OF [place] CORONARY ARTERY W/O ANG PCTRS Status: Acute Qualifiers: Coronary Disease-Associated Artery/Lesion type: [place] artery [place] vs. transplanted heart: [place] heart Associated angina: without angina Qualified Code(s): I25.10 - Atherosclerotic heart disease of [place] coronary artery without angina pectoris (3) COPD (chronic obstructive pulmonary disease) Status: Acute Qualifiers: COPD type: unspecified COPD Qualified Code(s): J44.9 - Chronic obstructive pulmonary disease, unspecified (4) ESRD (end stage renal disease) Code(s): N18.6 - END STAGE RENAL DISEASE Status: Acute Comment: on hd now. HD today, 2+ liters of fluid pulled. Fistula surgery done, expect good results when matures in 6-[address] Dalton assistance (5) Elevated troponin Code(s): R74.8 - ABNORMAL LEVELS OF OTHER SERUM ENZYMES Status: Resolved (6) Hypokalemia Code(s): E87.6 - HYPOKALEMIA Status: Resolved (7) PNA (pneumonia) Code(s): J18.9 - PNEUMONIA, UNSPECIFIED ORGANISM Status: Resolved Qualifiers: Pneumonia type: due to unspecified organism Laterality: unspecified laterality Lung location: unspecified part of lung Qualified Code(s): J18.9 - Pneumonia, unspecified organism (8) Prerenal azotemia Code(s): R79.89 - OTHER SPECIFIED ABNORMAL FINDINGS OF BLOOD CHEMISTRY Status : Resolved (9) Atrial paroxysmal tachycardia Status: Chronic Comment: On cardizem gtt, bblockade. follow up on cardiology recommendations. Afib redsolved. Paroxysmal. Multaq per Dr lew, halfway anticoagulation. Will discuss with Dr Lew and Joseph. Cleared for D/ C at any point by Dr Gonzáles - Plan * . anticipate D/C in 1-2 days
[2017-09-02] MEDS: Epoetin (ESRD) 10,000 UNITS/ML VIAL IVP SCH (10:24)
[2017-09-02 10:39] VITALS: BMI 24.2
[2017-09-02] MEDS: hydrALAZINE 25 MG TAB PO SCH ×3 (12:42→21:14)
[2017-09-02] MEDS: Docusate 100 MG CAP PO SCH ×2 (12:42→21:18)
[2017-09-02] MEDS: predniSONE 20 MG TAB PO SCH (12:42)
[2017-09-02] MEDS: Polyethylene Glycol 3350 17 GM Packet PO SCH (12:42)
[2017-09-02] MEDS: Heparin 5,000 UNITS/ML VIAL SC SCH ×3 (12:42→21:13)
[2017-09-02] MEDS: Calcitriol 0.25 MCG CAP PO SCH (12:44)
[2017-09-02] MEDS: Doxycycline 100 MG CAP PO SCH ×2 (12:47→21:18)
[2017-09-02] MEDS ORDERED: Heparin 10,000 UNITS/ 10 ML VIAL ONE (15:35)
[2017-09-02 17:12] LABS: ANCA Pattern <1:20 titer (Neg:<1:20); ANCA Total <1:20 titer (Neg:<1:20); Myeloperoxidase AutoAbs <9.0 U/mL (0.0-9.0); Proteinase-3 AutoAbs Less than 3.5 U/mL (0.0-3.5)
[2017-09-02] MEDS: Atorvastatin Calcium 20 MG TAB PO SCH (21:13)
[2017-09-03] MEDS: Acetaminophen/Codeine 30-300mg Tablet PO SCH ×3 (05:23→21:57)
[2017-09-03] MEDS: Doxycycline 100 MG CAP PO SCH ×2 (08:57→20:28)
[2017-09-03] MEDS: predniSONE 20 MG TAB PO SCH (08:57)
[2017-09-03] MEDS: Docusate 100 MG CAP PO SCH ×2 (08:57→20:28)
[2017-09-03] MEDS: Heparin 5,000 UNITS/ML VIAL SC SCH ×3 (08:57→20:28)
[2017-09-03] MEDS: Dronedarone HCl 400 MG TAB PO SCH ×2 (08:57→16:53)
[2017-09-03] MEDS: hydrALAZINE 25 MG TAB PO SCH ×3 (08:58→20:29)
[2017-09-03] MEDS: Polyethylene Glycol 3350 17 GM Packet PO SCH (08:58)
--- NOTE | 2017-09-03 11:08 | PRG ---
DATE OF SERVICE: 09/03/2017 SUBJECTIVE: This is a 71-year-old gentleman being seen for end-stage renal disease. Patient denies nausea, vomiting, or chest pain. OBJECTIVE: See above. GENERAL: Awake, alert, in no acute distress. VITAL SIGNS: Afebrile, pulse 78, breathing at 16, blood pressure 138/70. GENERAL APPEARANCE AND MENTAL STATUS: Fair. HEAD/NECK: Normocephalic. Atraumatic. EYES: EOMI. No deformity. EARS: Clear. No ulcers. NOSE: Intact. No lesions. MOUTH: Clear. No discharge. THROAT: Clear. No exudate. LUNGS: Clear. No crackles. CARDIAC: S1, S2. No rub. ABDOMEN: Benign. BS+. GENITALIA/RECTUM: [place] absent. BACK/EXTREMITIES: Edema 0+ ulcer. NEUROLOGICAL: Alert and motor intact. SKIN: Rash - bruise. LYMPHATICS: Edema - ulcer. LABORATORY DATA: Labs showed hemoglobin 8.8. ASSESSMENT AND RECOMMENDATIONS: 1. Stage 6 chronic kidney disease, on hemodialysis Thursday, Thursday, Thursday. 2. Hypertension, stable. 3. Anemia, stable. 4. Medications based on glomerular filtration rate are appropriate.
--- NOTE | 2017-09-03 11:58 | PDOC.PN ---
- Subjective Encounter Start Date: 09/03/17 Encounter Start Time: 08:45 -: old records requested/rev Pt feeling much better. up to chair, eating well. No f/c, no n/V/D/C,no CP, no SOB. [place], but improving. HD chair set up on [place] for as early as tomorrow. Started on Multaq by cardiology yesterday. no more Afib. Awaiting clearance form Renal and Cardiology to go home. 10 point ROS performed and neg for all except as per HPI above - Objective Resuscitation Status: FULL MAR Reviewed: Yes Vital Signs & Weight: Vital Signs (12 hours) Temp Pulse Resp BP Pulse Ox 09/03/17 11:39 98.7 F 84 20 139/66 92 L 09/03/17 08:58 78 09/03/17 08:57 78 09/03/17 08:00 97.6 F 78 18 97 09/03/17 07:41 97.6 F 78 18 138/67 97 09/03/17 04:08 98.9 F 89 15 133/65 94 L 09/03/17 00:18 98.6 F 86 16 128/60 95 Weight Admit Weight 164 lb 3.2 oz Weight 146 lb I&O: 09/02/17 09/03/17 09/04/17 06:59 06:59 06:59 Intake Total 460 480 Output Total 75 250 Balance -75 210 480 Result Diagrams: 09/02/17 04:00 09/02/17 04:00 Radiology Reviewed by me: Yes EKG Reviewed by me: Yes Phys Exam - Physical Examination Constitutional: NAD HEENT: PERRLA, moist MMs, sclera anicteric, oral pharynx no lesions Neck: no nodes, no JVD, supple, full ROM Respiratory: no wheezing, no rales, no rhonchi, clear to auscultation bilateral Cardiovascular: RRR, no significant murmur, no rub Gastrointestinal: soft, non-tender, no distention, positive bowel sounds Musculoskeletal: no edema, pulses present Neurological: non-focal, normal sensation, moves all 4 limbs Lymphatic: no nodes Psychiatric: normal affect, A&O x 3 Skin: no rash, normal turgor, cap refill <2 seconds Dx/Plan (1) Acute on chronic diastolic CHF (congestive heart failure) Code(s): I50.33 - ACUTE ON CHRONIC DIASTOLIC (CONGESTIVE) HEART FAILURE Status : Acute Comment: fluid removal good with HD. CCM. Improved and stable for discharge form medical standpoint. Will discuss with Cards and Nephro (2) CAD (coronary artery disease) Code(s): I25.10 - ATHSCL HEART DISEASE OF [place] CORONARY ARTERY W/O ANG PCTRS Status: Acute Qualifiers: Coronary Disease-Associated Artery/Lesion type: [place] artery [place] vs. transplanted heart: [place] heart Associated angina: without angina Qualified Code(s): I25.10 - Atherosclerotic heart disease of [place] coronary artery without angina pectoris (3) COPD (chronic obstructive pulmonary disease) Status: Chronic Qualifiers: COPD type: unspecified COPD Qualified Code(s): J44.9 - Chronic obstructive pulmonary disease, unspecified (4) ESRD (end stage renal disease) Code(s): N18.6 - END STAGE RENAL DISEASE Status: Acute Comment: MWF HD. HD 09/01, 09/02, 4.5 liters of fluid pulled over those two days. Fistula surgery done, expect good results when matures in 6-[address] Dalton assistance (5) Elevated troponin Code(s): R74.8 - ABNORMAL LEVELS OF OTHER SERUM ENZYMES Status: Resolved (6) Hypokalemia Code(s): E87.6 - HYPOKALEMIA Status: Resolved (7) PNA (pneumonia) Code(s): J18.9 - PNEUMONIA, UNSPECIFIED ORGANISM Status: Resolved Qualifiers: Pneumonia type: due to unspecified organism Laterality: unspecified laterality Lung location: unspecified part of lung Qualified Code(s): J18.9 - Pneumonia, unspecified organism Comment: 2 more days of doxy. three more days of prednisone (8) Atrial paroxysmal tachycardia Status: Resolved Comment: Afib redsolved. Paroxysmal. 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 Will discuss with Dr Lew and Joseph. Cleared for D/C at any point by Dr Gonzáles. Eliquis/Xarelto or coumadin per Dr Lew - Plan cont current plan of care, continue antibiotics, PT/OT, social service director * .
[2017-09-03] MEDS: Atorvastatin Calcium 20 MG TAB PO SCH (20:28)
[2017-09-04] MEDS: Acetaminophen/Codeine 30-300mg Tablet PO SCH (05:31)
[2017-09-04 05:57] LABS: Anion Gap 13 mmol/L (10-20); BUN (Urea Nitrogen) 64 mg/dL (8.4-25.7); Calc. Creatinine Clearance 22 mL/min (70-130); Carbon Dioxide 27 mmol/L (23-31); Chloride 101 mmol/L (98-107); Estimated GFR-MDRD 22
[2017-09-04 06:11] LABS: #Monocytes 0.7 thou/uL (0.11-0.59); #Neutrophils 6.5 thou/uL (1.40-6.50); %Basophils 0.4 % (0.0-1.0); %Eosinophils 0.3 % (0.0-10.0); %Lymphocytes 12.6 % (21.0-51.0); %Monocytes 8.3 % (0.0-10.0); Anisocytosis SLIGHT = 6-15 cells (100X) (0-5/hpf); Elliptocytes SLIGHT = 2-5 cells (100X) (0-1/hpf); Hypochromia SLIGHT = 6-15 cells (100X) (0-5/hpf); Mean Platelet Volume 9.5 fL (7.4-10.4); Microcytosis SLIGHT = 6-15 cells (100X) (0-5/hpf); Red Blood Cell (RBC) Count 3.85 mill/uL (4.70-6.10); White Blood Cell (WBC) Count 8.2 thou/uL (4.8-10.8)
[2017-09-04 07:55] VITALS: TEMP 97.9
[2017-09-04] MEDS: hydrALAZINE 25 MG TAB PO SCH (08:42)
[2017-09-04] MEDS: predniSONE 20 MG TAB PO SCH (08:42)
[2017-09-04] MEDS: Polyethylene Glycol 3350 17 GM Packet PO SCH (08:42)
[2017-09-04] MEDS: Doxycycline 100 MG CAP PO SCH (08:42)
[2017-09-04] MEDS: Docusate 100 MG CAP PO SCH (08:42)
[2017-09-04] MEDS: Dronedarone HCl 400 MG TAB PO SCH (08:42)
[2017-09-04] MEDS ORDERED: Rivaroxaban 15 MG TAB PO SCH (09:00)
[2017-09-04] MEDS: Calcitriol 0.25 MCG CAP PO SCH (11:18)
[2017-09-04] MEDS: Epoetin (ESRD) 10,000 UNITS/ML VIAL IVP SCH (11:18)
--- NOTE | 2017-09-04 11:43 | DIS ---
PRIMARY CARE PHYSICIAN: Dr. Osmani Gage PRIMARY CRABBER: Dr. Chacon DATE OF ADMISSION: 08/24/2017 DATE OF DISCHARGE: 09/04/2017 DISCHARGE DIAGNOSES: 1. End-stage renal disease, now on chronic hemodialysis. 2. Acute hypoxemic respiratory failure. 3. Acute on chronic diastolic congestive heart failure. 4. History of coronary artery disease, without angina. 5. History of chronic obstructive pulmonary disease without acute exacerbation. 6. Abnormal troponin. 7. Hypokalemia, resolved. 8. Community-acquired pneumonia due to unspecified organism. 9. Paroxysmal atrial fibrillation. CONSULTATIONS: 1. Nephrology, Dr. Chacon on 08/25/2017, managed by keeley and Dr. Ruiz. 2. Pulmonary Critical Care, Dr. Neville Egan 08/25/2017. 3. Cardiology, initially Dr. Jayson Harden on 08/25/2017 followed long-term by Dr. Tye Oneil. 4. Dr. Travis Zaragoza on 08/27/2017. PROCEDURES: 1. Hemodialysis. 2. Echocardiogram 08/24/2017 that showed ejection fraction 55-60%, severely dilated left atrium, mod erate aortic stenosis, mild aortic insufficiency, mild TR and moderately elevated pulmonary artery pr essure with mild MR. 3. 08/28/2017 - had a PermCath placement and a left wrist fistula creation under general anesthesia by Dr. Zaragoza. HOSPITAL COURSE: Mr. Goins is a pleasant 71-year-old male with history of chronic kid erika disease managed long-term by Dr. Chacon, hypertension, PVD and cerebral vascular disease, who ca me to ER with increasing dyspnea over the last several days. He also developed some swelling with hi s dyspnea on exertion, some PND and dyspnea on exertion. Denies any chest pain, but just overall fel t tired. Evaluation in the emergency department showed him to have acute on chronic kidney disease w ith a creatinine up to 5.46, and to be volume overloaded consistent with acute on chronic diastolic c ongestive heart failure. The patient was admitted, echocardiogram was obtained, Cardiology, Nephrology, Pulmonary Critical Car e were consulted and the patient was admitted to the [facility]. HOSPITAL COURSE: The patient was seen and examined. After direct transfer from [facility] to our facility. Dr. Joseph admitted the patient to the [facility]. Consultation made as above. The patient was seen on 08/25/2017 by consultants, agreed with continued diuresis and respiratory sup port and the need for dialysis. General Surgery was consulted, Dr. Zaragoza evaluated the patient. Up per extremity ultrasound was performed and the patient was taken to the operating room on 08/28/2017 for a left wrist fistula creation, and PermCath placement. Hemodialysis was started on 08/28/2017 evening, and tolerated well. Increasing duration of dialysis from 08/28/2017 until the day of discharge. The patient remained hemodynamically stable, improving breathing and negative fluid balance after sta rting dialysis. His fistula improved rapidly and had a palpable thrill postop day #1. Dr. Zaragoza wa s able to sign off on 09/01/2017. The patient initially presented with atrial fibrillation with rapid ventricular response postoperativ [place]. He was started on Cardizem drip and after 24 hours or so was transitioned to oral Cardizem. Ca rdiology saw the patient, recommended transition over to Multaq and the patient was started on that o nce he was off the levofloxacin. He is maintained on Multaq over the last 72 hours and remained in s inus rhythm and plans continue that with once daily, Eliquis, for a nonvalvular atrial fibrillation p rophylaxis of stroke. The patient had a possible pneumonia present community-acquired on admission. He was started on levo floxacin and has 2 more days of doxycycline to complete. From 09/01/2017 to 09/04/2017, the patient was doing well. He was tolerating full dialysis treatment s. He remained in sinus rhythm. Outpatient hemodialysis arrangements were ultimately made. Today, the patient is stable for discharge on Xarelto started this morning. He will have outpatient followup. The patient was seen and examined on the day of discharge. Discharge plan and dispositio n were discussed with the patient face to face at the bedside. DISCHARGE MEDICATIONS: 1. Diltiazem hydrochloride CD 120 mg p.o. q.a.m. 2. Doxycycline 100 mg p.o. b.i.d. for 2 more days. 3. Multaq 400 mg p.o. b.i.d. 4. Procrit 10,000 units IV three times weekly with hemodialysis. Lasix 20 mg p.o. daily, hydralazin e decreased to 25 mg p.o. t.i.d. Prescription sent for 30 day supply with 2 refills. 5. Multivitamins. 6. MiraLax daily. 7. Prednisone 20 mg p.o. q.a.m. for 3 more days. 8. Xarelto 50 mg p.o. q.a.m. New prescription sent for 30 days with 2 refills. 9. Vitamin B12 500 mcg daily. 10. Calcitriol 0.25 mg p.o. on Thursday, Thursday, and Thursday. 11. Bisoprolol 10/6.25 two tablets p.o. daily or 20/12.5 daily. 12. Lipitor 20 mg p.o. at bedtime. 13. Aspirin 81 mg daily. 14. Tylenol with codeine as previously taken. FOLLOWUP APPOINTMENTS: 1. Primary care physician, Dr. Gage within a week. 2. Dr. Chacon with Renal per his clinic. 3. Dr. Oneil with Cardiology in 2-3 weeks. DISCHARGE DIET: Renal, heart healthy. DISCHARGE ACTIVITY: Per cardiopulmonary limits. The patient was asked to keep followup appointments and take medication as prescribed. He was instru cted to return to the emergency department for worsening symptoms or the direction of his primary doc tors.
--- NOTE | 2017-09-04 11:54 | PRG ---
DATE OF SERVICE: 09/04/2017 SUBJECTIVE: A 71-year-old gentleman being seen for end-stage renal disease. Patient denies any naus ea, vomiting or chest pain. PHYSICAL EXAMINATION: GENERAL: Patient is awake, alert. VITAL SIGNS: Afebrile, pulse 86, breathing at 16, blood pressure 164/75. HEAD/NECK: Normocephalic. Atraumatic. EYES: EOMI. No deformity. EARS: Clear. No ulcers. NOSE: Intact. No lesions. MOUTH: Clear. No discharge. THROAT: Clear. No exudate. LUNGS: Clear. No crackles. CARDIAC: S1, S2. No rub. ABDOMEN: Benign. BS+. GENITALIA/RECTUM: Howard absent. BACK/EXTREMITIES: Edema 0+ Ulcer- NEUROLOGICAL: Alert and motor intact. SKIN: Rash- Bruise- LYMPHATICS: Edema- Ulcer- LABORATORY DATA: Show hemoglobin 8.7. ASSESSMENT AND RECOMMENDATIONS: 1. Stage 6 chronic kidney disease. Continue hemodialysis Thursday, , and Thursday. 2. Hypertension, stable. 3. Anemia, stable. Outpatient discharge has been setup.
[2017-09-04 12:14] VITALS: BP 166/76
== END 2017-09-04 15:29 | disposition home or self-care (01) | DRG 264 ==
LOC: IMCU/EMU 19:29 → 2SE 08-31 16:36 → IMCU/EMU 08-31 17:11 → 2SE 08-31 17:32
PROVIDERS: ADMIT Internal Medicine Infectious Disease; ATTEND Internal Medicine Infectious Disease
PROC: 02HV33Z Insertion of Infusion Device into Superior Vena Cava, Percutaneous Approach (ICD-10-PCS; 2017-08-28)
PROC: B5181ZA Fluoroscopy of Superior Vena Cava using Low Osmolar Contrast, Guidance (ICD-10-PCS; 2017-08-28)
PROC: 5A1D70Z Performance of Urinary Filtration, Intermittent, Less than 6 Hours Per Day (ICD-10-PCS; 2017-08-28)
PROC: 02H633Z Insertion of Infusion Device into Right Atrium, Percutaneous Approach (ICD-10-PCS; 2017-08-28)
PROC: 031C0ZF Bypass Left Radial Artery to Lower Arm Vein, Open Approach (ICD-10-PCS; principal; 2017-08-31)
DX: I13.2 Hypertensive heart and chronic kidney disease with heart failure and with stage 5 chronic kidney disease, or end stage renal disease (principal); J96.01 Acute respiratory failure with hypoxia; J18.9 Pneumonia, unspecified organism; N17.9 Acute kidney failure, unspecified; E87.2 Acidosis; N18.6 End stage renal disease; E87.8 Other disorders of electrolyte and fluid balance, not elsewhere classified; J44.0 Chronic obstructive pulmonary disease with (acute) lower respiratory infection; N12 Tubulo-interstitial nephritis, not specified as acute or chronic; I24.8 Other forms of acute ischemic heart disease; I50.33 Acute on chronic diastolic (congestive) heart failure; I47.1 Supraventricular tachycardia; E87.1 Hypo-osmolality and hyponatremia; I48.0 Paroxysmal atrial fibrillation; N18.3 Chronic kidney disease, stage 3 (moderate); I73.9 Peripheral vascular disease, unspecified; Z86.73 Personal history of transient ischemic attack (TIA), and cerebral infarction without residual deficits; E78.5 Hyperlipidemia, unspecified; Z88.8 Allergy status to other drugs, medicaments and biological substances; I25.10 Atherosclerotic heart disease of native coronary artery without angina pectoris; E87.6 Hypokalemia; E83.39 Other disorders of phosphorus metabolism; Z79.01 Long term (current) use of anticoagulants; Z79.82 Long term (current) use of aspirin; G51.0 Bell's palsy; D63.8 Anemia in other chronic diseases classified elsewhere; T39.395A Adverse effect of other nonsteroidal anti-inflammatory drugs [NSAID], initial encounter
CPT/HCPCS: 36415; 36416; 71010; 80048; 80053; 80069; 81003; 82570; 82805; 83520; 83735; 83883; 84156; 84165; 84166; 85025; 86021; 86038; 86580; 86704; 86706; 86803; 87040; 87340; 90935; 93306; 93798; 93970; A4216; C1752; C1769; G0257; G0365; J0692; J1644; J1940; J1956; J2250; J2704; J2720; J3010; J7050; J7506; Q4081

== ENCOUNTER 2017-12-19 18:55 | Inpatient (IN) | payer MEDICARE, OTHER ==
[2017-12-19 19:40] LABS: #Eosinphils 0.1 thou/uL (0.0-0.7); #Lymphocytes 1.1 thou/uL (1.20-3.40); #Monocytes 0.9 thou/uL (0.11-0.59); %Basophils 0.2 % (0.0-1.0); %Eosinophils 0.7 % (0.0-10.0); %Lymphocytes 11.6 % (21.0-51.0); %Monocytes 10.3 % (0.0-10.0); %Neutrophils 77.2 % (42.0-75.0); Hemoglobin 9.3 g/dL (14.0-18.0); Mean Corpuscular HGB CONC 31.9 g/dL (32.0-36.0); Mean Corpuscular Hemoglobin 27.8 pg (27.0-31.0); Mean Corpuscular Volume 87.2 fl (80.0-94.0); Mean Platelet Volume 9.6 fL (7.4-10.4); Platelet Count 178 thou/uL (130-400); RBC Distribution Width 15.2 % (11.5-14.5); Red Blood Cell (RBC) Count 3.35 mill/uL (4.70-6.10)
[2017-12-19 19:46] LABS: INR-International Normal Ratio 2.7; Prothrombin Time 29.5 SEC (12.0-14.7)
[2017-12-19 19:47] LABS: PTT 65.5 SEC (22.9-36.1)
[2017-12-19 20:06] LABS: ALT (SGPT) 13 U/L (8-55); AST (SGOT) 24 U/L (5-34); Albumin 3.6 g/dL (3.4-4.8); Alkaline Phosphatase 86 U/L (40-150); Anion Gap 12 mmol/L (10-20); BUN (Urea Nitrogen) 43 mg/dL (8.4-25.7); Bilirubin, Total 0.6 mg/dL (0.2-1.2); CK (CPK) 24 U/L (30-200); Calc. Creatinine Clearance 0 mL/min (70-130); Calcium 9.2 mg/dL (7.8-10.44); Carbon Dioxide 20 mmol/L (23-31); Chloride 110 mmol/L (98-107); Estimated GFR-MDRD 29; Globulin 3.7 g/dL (2.4-3.5); Glucose 114 mg/dL (83-110); Lipase 30 U/L (8-78); Potassium 4.2 mmol/L (3.5-5.1); Protein, Total 7.3 g/dL (5.8-8.1); Sodium 138 mmol/L (136-145)
--- NOTE | 2017-12-19 20:11 | RAD ---
PORTABLE CHEST ONE VIEW 12/19/17 at 7:33 p.m. HISTORY: Dyspnea. FINDINGS/IMPRESSION: Comparison is made with exam of 08/31/17. Right sided dialysis catheter remains in place The heart size is borderline. There is pulmonary vascu lar congestion with bibasilar infiltrates, right greater than left. No pneumothoraces are seen. Small effusions may be present. POS: [facility]
[2017-12-19 20:15] LABS: CKMB 0.8 ng/mL (0-6.6); Troponin I 0.036 ng/mL (< 0.028)
[2017-12-19] MEDS ORDERED: Acetaminophen 500 MG TAB ONE (20:52)
[2017-12-19] MEDS ORDERED: Furosemide 40 MG/4 ML VIAL ONE (21:07)
[2017-12-19 21:13] LABS: Bilirubin Negative (Negative); Blood, Urine Negative (Negative); Clarity CLEAR (Clear); Glucose, Urine (Dipstick) Negative (Negative); Leukocyte Negative (Negative); Nitrite Negative (Negative); Protein, Urine (Dipstick) 30 mg/dL (Neg-Trace); Specific Gravity, Urine 1.022 (1.002-1.036); pH, Urine 5.5 (5.0-9.0)
[2017-12-19 21:14] LABS: Bacteria/HPF None Seen HPF (None Seen); Hyaline Casts/LPF 0-3 HYALINE CAST LPF (0-3 Hyaline); RBC/HPF 0-3 HPF (0-3); Squamous Epithelial None Seen HPF (0-3); WBC/HPF None Seen HPF (0-3)
[2017-12-19] MEDS ORDERED: Cefepime 1 GM, Admixture Fee 1 EACH in Sodium Chloride 0.9% 10 ML SLOW IVP SCH (21:15)
[2017-12-19 23:09] LABS: Troponin I 0.056 ng/mL (< 0.028)
[2017-12-19 23:49] VITALS: BMI 23.8
[2017-12-20] MEDS ORDERED: Senokot 8.6 MG TAB PO PRN (01:37)
[2017-12-20] MEDS ORDERED: Nitroglycerin 0.4 MG TAB (25 Tab Bottle) PO PRN (01:37)
[2017-12-20] MEDS ORDERED: Calcium Carbonate 500 MG ChewTAB PO PRN (01:37)
[2017-12-20] MEDS ORDERED: Acetaminophen 325 MG TAB PO PRN (01:37)
[2017-12-20 01:40] LABS: Troponin I 0.054 ng/mL (< 0.028)
[2017-12-20] MEDS ORDERED: hydrALAZINE 20 MG/ML VIAL SLOW IVP PRN (01:40)
--- NOTE | 2017-12-20 01:51 | HP ---
DATE OF ADMISSION: 12/19/2017 Patient was seen and examined on 12/19/2017. CHIEF COMPLAINT: Shortness of breath. HISTORY OF PRESENT ILLNESS: Patient is a 72-year-old male with hypertension, CKD, peripheral vascula r disease, and chronic diastolic heart failure, who presented to the emergency room with shortness of breath that started last night. The shortness of breath is worse on lying down flat. He also notic ed bilateral lower extremity swelling along with mild nonproductive cough. His last dialysis session was last month. He follows Dr. Ruzi. He does not need further dialysis per Dr. Ruiz. No fever, ch ills, chest pain, syncope, or palpitations reported. In the emergency room, his initial oxygen saturation was 79% on room air with temperature of 102.4, r espirations 17, pulse of 86 with blood pressure of 173/73. His chest x-ray showed pulmonary vascular congestion with bibasilar infiltrate, right greater than the left. There is no history of swallow d ysfunction per patient report. He is allergic to LASIX per patient report. His BNP in the emergency room was 1867 with creatinine 2.22, BUN 43. PAST MEDICAL HISTORY: 1. Chronic diastolic heart failure. 2. Hypertension. 3. Peripheral vascular disease. 4. Gonzalez's palsy. 5. Bilateral carotid artery disease, status post bilateral carotid endarterectomy. 6. Chronic kidney disease, stage 4. 7. History of end-stage renal disease requiring hemodialysis in the past. 8. Chronic obstructive pulmonary disease. 9. Paroxysmal atrial fibrillation. PAST SURGICAL HISTORY: 1. Bilateral carotid endarterectomy. 2. Dialysis access. Patient still has the dialysis fistula in the right upper chest. 3. Stent placement in the left lower extremity. ALLERGIES: No known drug allergies. CURRENT HOME MEDICATIONS: Per [facility], aspirin 81 mg daily, vitamin C daily, Lipitor [address], carvedilol 12.5 b.i.d., vitamin B12 of 2500 mcg daily, Cardizem ER 120 mg daily, Multaq 400 mg da herbert, glucosamine daily, hydralazine 100 mg three times daily, Xarelto 15 mg daily. SOCIAL HISTORY: Patient currently lives at home. No smoking, alcohol, or drug use. He is FULL CODE , makes his own decision with the help of his family. FAMILY HISTORY: Negative for heart disease. Mother with hypertension. Stroke in both of his parent s. REVIEW OF SYSTEMS: The following complete review of systems was negative, unless otherwise mentioned in the HPI or below: Constitutional: Weight loss or gain, ability to conduct usual activities. Sk in: Rash, itching. Eyes: Double vision, pain. ENT/Mouth: Nose bleeding, neck stiffness, pain, te nderness. Cardiovascular: Palpitations, dyspnea on exertion, orthopnea. Respiratory: Shortness of breath, wheezing, cough, hemoptysis, fever, or night sweats. Gastrointestinal: Poor appetite, abdo nancy pain, heartburn, nausea, vomiting, constipation, or diarrhea. Genitourinary: Urgency, frequen cy, dysuria, nocturia. Musculoskeletal: Pain, swelling. Neurologic/Psychiatric: Anxiety, depressi on. Allergy/Immunologic: Skin rash, bleeding tendency. PHYSICAL EXAMINATION: VITAL SIGNS: As discussed above. GENERAL: A 72-year-old male in mild respiratory distress, able to complete short sentences. HEENT: Head atraumatic, normocephalic. Sclerae anicteric. Moist mucous membrane. No oral lesion. NECK: Supple. Neck veins somewhat distended. No significant carotid bruit. LUNGS: Showed bibasilar crackles with scattered rhonchi. No significant wheezing. Lungs were symme trical. HEART: S1, S2 present. Regular rate and rhythm. No rubs or gallops appreciated. There was 2/6 sys tolic murmur over the mitral area. ABDOMEN: Soft, nontender, bowel sounds present. EXTREMITIES: 1+ edema in bilateral lower extremities up to the mid leg. No calf tenderness. SKIN: Warm and dry. LYMPH NODES: No palpable lymph nodes in the neck. PERIPHERAL VASCULAR: Radial pulses palpable bilaterally. MUSCULOSKELETAL: No joint swelling or tenderness. SKIN: Warm and dry. LYMPH NODES: No palpable lymph nodes in the neck. NEUROLOGIC: Grossly nonfocal, moves all four extremities. PSYCHIATRY: Alert, awake, oriented x3. LABORATORY FINDINGS: As discussed above. Bicarbonate was 20 with hemoglobin 9.3. Troponin in the i ndeterminate range, maximum of 0.036. Blood culture and urine cultures have been done. EKG by my re view showed sinus rhythm. Chest x-ray by my review as discussed above. IMPRESSION AND PLAN: 1. Acute hypoxic respiratory failure secondary to community-acquired pneumonia suspected pneumococcu s. 2. Suspected acute on chronic diastolic heart failure exacerbation. Please note that patient is all ergic to LASIX per patient report. 3. Elevated troponins, probably secondary to demand ischemia. 4. Peripheral vascular disease. 5. Chronic kidney disease, stage 4. 6. Hypertension. 7. Hyperlipidemia. 8. Metabolic acidosis, probably secondary to renal insufficiency. 9. Anemia secondary to renal insufficiency. 10. Paroxysmal atrial fibrillation on anticoagulation. PLAN: Patient will be monitored on the telemetry unit. Nephrology, Dr. Ruiz will be consulted. We will continue antibiotics for pneumonia. Patient received cefepime and vancomycin in the emergency r oom. Influenza testing was negative. Vital signs q.4 hourly. We will resume home medications. We will repeat labs in a.m. Serial troponins. Plan of care was discussed with the patient in detail, he stated understanding.
[2017-12-20 05:44] LABS: #Eosinphils 0.1 thou/uL (0.0-0.7); #Lymphocytes 1.1 thou/uL (1.20-3.40); #Monocytes 0.7 thou/uL (0.11-0.59); #Neutrophils 4.4 thou/uL (1.40-6.50); %Basophils 0.3 % (0.0-1.0); %Eosinophils 1.5 % (0.0-10.0); %Monocytes 11.5 % (0.0-10.0); %Neutrophils 69.8 % (42.0-75.0); Hemoglobin 8.2 g/dL (14.0-18.0); Mean Corpuscular HGB CONC 31.9 g/dL (32.0-36.0); Mean Corpuscular Hemoglobin 27.5 pg (27.0-31.0); Mean Corpuscular Volume 86.2 fl (80.0-94.0); Mean Platelet Volume 8.7 fL (7.4-10.4); Platelet Count 132 thou/uL (130-400); Red Blood Cell (RBC) Count 2.97 mill/uL (4.70-6.10); White Blood Cell (WBC) Count 6.4 thou/uL (4.8-10.8)
[2017-12-20 05:52] LABS: Albumin 3.1 g/dL (3.4-4.8); Anion Gap 10 mmol/L (10-20); BUN (Urea Nitrogen) 43 mg/dL (8.4-25.7); BUN/Creatinine Ratio 20.98; Calc. Creatinine Clearance 30 mL/min (70-130); Calcium 8.9 mg/dL (7.8-10.44); Carbon Dioxide 21 mmol/L (23-31); Chloride 111 mmol/L (98-107); Estimated GFR-MDRD 32; Glucose 90 mg/dL (83-110); Magnesium 1.9 mg/dL (1.6-2.6); Phosphorus 3.5 mg/dL (2.3-4.7); Potassium 3.8 mmol/L (3.5-5.1); Sodium 138 mmol/L (136-145)
[2017-12-20] MEDS: Ascorbic Acid 500 mg Chewable Tablet PO SCH (07:44)
[2017-12-20] MEDS: Carvedilol 6.25 MG TAB PO SCH ×2 (07:44→20:18)
[2017-12-20] MEDS: Docusate 100 MG CAP PO SCH ×2 (07:45→20:17)
[2017-12-20] MEDS: Rivaroxaban 15 MG TAB PO SCH (07:46)
[2017-12-20] MEDS: Famotidine 20 MG TAB PO SCH (07:46)
[2017-12-20] MEDS: Doxycycline 100 MG CAP PO SCH ×2 (07:46→20:18)
[2017-12-20] MEDS: Dronedarone HCl 400 MG TAB PO SCH (07:46)
[2017-12-20] MEDS: hydrALAZINE 25 MG TAB PO SCH ×3 (07:47→20:19)
[2017-12-20] MEDS ORDERED: Cefepime 0.5 GM in Sodium Chloride 0.9% 100 ML IVPB SCH (09:00)
[2017-12-20] MEDS: Cefepime 0.5 GM, Admixture Fee 1 EACH in Sterile Water 5 ML SLOW IVP SCH (09:07)
--- NOTE | 2017-12-20 09:23 | PDOC.PN ---
- Subjective Encounter Start Date: 12/20/17 Encounter Start Time: 09:22 Subjective: I FEEL MUCH BETTER TODAY - Objective Resuscitation Status: Resuscitation Status FULL:Full Resuscitation MAR Reviewed: Yes Vital Signs & Weight: Vital Signs (12 hours) Temp Pulse Resp BP BP BP Pulse Ox 12/20/17 07:57 99.4 F 90 20 95 12/20/17 07:47 90 179/77 H 12/20/17 07:45 90 179/77 H 12/20/17 07:44 179/77 H 12/20/17 07:42 99.4 F 90 20 179/77 H 95 12/20/17 07:03 78 16 94 L 12/20/17 05:06 99.7 F H 80 17 155/70 H 94 L 12/20/17 01:37 100 12/19/17 23:20 99.3 F 78 18 100 12/19/17 23:15 99.3 F 78 18 147/63 H 100 Weight Weight 143 lb I&O: 12/19/17 12/20/17 12/21/17 05:59 06:59 06:59 Intake Total Output Total Balance Result Diagrams: 12/20/17 05:12 12/20/17 05:12 Radiology Reviewed by me: Yes Phys Exam - Physical Examination Constitutional: NAD HEENT: PERRLA, moist MMs, sclera anicteric Neck: supple, full ROM Respiratory: no wheezing, no rales, no rhonchi Cardiovascular: RRR 3/6 RAKAN Gastrointestinal: soft, non-tender Musculoskeletal: no edema, pulses present Neurological: non-focal, moves all 4 limbs Psychiatric: normal affect, A&O x 3 Skin: no rash Deviation from normal: DIALYSIS CATHETER RT CW Dx/Plan (1) Acute on chronic diastolic CHF (congestive heart failure) Code(s): I50.33 - ACUTE ON CHRONIC DIASTOLIC (CONGESTIVE) HEART FAILURE Status : Acute Comment: fluid removal good with HD. CCM. Improved and stable for discharge form medical standpoint. Will discuss with Cards and Nephro (2) PNA (pneumonia) Code(s): J18.9 - PNEUMONIA, UNSPECIFIED ORGANISM Status: Acute Qualifiers: Pneumonia type: due to unspecified organism Laterality: left Lung location: unspecified part of lung Qualified Code(s): J18.9 - Pneumonia, unspecified organism (3) HLD (hyperlipidemia) Code(s): E78.5 - HYPERLIPIDEMIA, UNSPECIFIED Status: Chronic Qualifiers: Hyperlipidemia type: unspecified Qualified Code(s): E78.5 - Hyperlipidemia , unspecified (4) HTN (hypertension) Code(s): I10 - ESSENTIAL (PRIMARY) HYPERTENSION Status: Chronic Qualifiers: Hypertension type: essential hypertension Qualified Code(s): I10 - Essential (primary) hypertension (5) PVD (peripheral vascular disease) Code(s): I73.9 - PERIPHERAL VASCULAR DISEASE, UNSPECIFIED Status: Chronic Comment: S/P CEA on right yesterday. BP running high, on NTG and Nipride for control. (6) Atrial paroxysmal tachycardia Status: Resolved Comment: Afib redsolved. Paroxysmal. Multaq per Dr lew, [facility] anticoagulation. Will discuss with Dr Lew and Joseph. Cleared for D/C at any point by Dr Gonzáels. Eliquis/Xarelto or coumadin per Dr Lew (7) Elevated troponin Code(s): R74.8 - ABNORMAL LEVELS OF OTHER SERUM ENZYMES Status: Resolved - Plan cont current plan of care, continue antibiotics, respiratory therapy, out of bed /ambulate IMPROVED, DISPOSITION PER RENAL. OUTPT ANTIMICROBIALS UPON D/C * .
--- NOTE | 2017-12-20 13:36 | CON ---
NEPHROLOGY CONSULTATION NOTE DATE OF CONSULTATION: 12/20/2017 CONSULTING PHYSICIAN: Dr. Alexander. REASON FOR CONSULTATION: Shortness of breath. HISTORY OF PRESENT ILLNESS: This is a pleasant 72-year-old male with history of congestive heart brian lure, hypertension, peripheral vascular disease and chronic kidney disease, who was recently on dialy sis and was taken off due to renal recovery, came in to the hospital with possible pneumonia symptoms and is being treated. The patient also had mild grade fever. No chest pain or palpitation. He rodríguez s also have a tunneled dialysis catheter, which needs to be removed and has an appointment next or Thursday to remove. The patient is feeling better. No nausea or vomiting. No skin rash. PAST MEDICAL HISTORY: Positive for CHF, hypertension, peripheral vascular disease, Gonzalez's palsy, cor onary artery disease, CKD and paroxysmal AFib. PAST SURGICAL HISTORY: Carotid endarterectomy, dialysis access placements, stent placement in the le g. ALLERGIES: No known drug allergies. HOME MEDICATIONS: Aspirin, vitamin C, Lipitor, carvedilol, B12, Cardizem, Multaq, hydralazine and Xa relto. SOCIAL HISTORY: No smoking or alcohol. FAMILY HISTORY: No history of any kidney disease. REVIEW OF SYSTEMS: The following complete review of systems was negative, unless otherwise mentioned in the HPI or below: Constitutional: Weight loss or gain, ability to conduct usual activities. Skin: Rash, itching. Eyes: Double vision, pain. ENT/Mouth: Nose bleeding, neck stiffness, pain, tenderness. Cardiovascular: Palpitations, dyspnea on exertion, orthopnea. Respiratory: Shortness of breath, wheezing, cough, hemoptysis, fever or night sweats. Gastrointestinal: Poor appetite, abdominal pain, heartburn, nausea, vomiting, constipation, or diarr hea. Genitourinary: Urgency, frequency, dysuria, nocturia. Musculoskeletal: Pain, swelling. Neurologic/Psychiatric: Anxiety, depression. Allergy/Immunologic: Skin rash, bleeding tendency. PHYSICAL EXAMINATION: GENERAL: This is a well-built male in no apparent distress. VITAL SIGNS: Temperature 99.4, pulse 90, respiratory 20 and blood pressure 146/70. HEENT: Atraumatic and normocephalic. Oral mucosa is moist. NECK: Supple. No masses. CARDIOVASCULAR: S1 and S2 heard. Rate and rhythm regular. RESPIRATORY: Clear. ABDOMEN: Soft. MUSCULOSKELETAL: 1+ edema. DERMATOLOGIC: No skin rash. NEUROLOGIC: Alert and awake. PSYCHIATRIC: Mood and affect normal. LABORATORY DATA: Hemoglobin is 8.2. Potassium is 3.8, BUN is 43 and creatinine is 2.05. ASSESSMENT AND PLAN: 1. Acute kidney injury on chronic kidney disease stage IV better. Renal function is stable. No ind ication for dialysis. Okay to remove dialysis catheter. 2. Anemia, which is chronic and transfuse if needed. He might need Epogen. 3. Acidosis, stable. 4. Cardiorenal syndrome. 5. Pneumonia. Consider Lasix if he has fluid overload. We will monitor for now and continue suppor tive care. We will consult Surgery for removal of tunneled dialysis catheter. Orders placed. Thank you for the consult. We will follow.
--- NOTE | 2017-12-20 14:03 | OP ---
PREOPERATIVE DIAGNOSES: Recovered renal function such that he can have his dialysis catheter removed , left seminal fistula is maturing. POSTOPERATIVE DIAGNOSES: Recovered renal function such that he can have his dialysis catheter remove d, left seminal fistula is maturing. PROCEDURE: Removal of hemodialysis catheter, cuffed tunneled angiodynamics right IJ. SURGEON: Dr. Travis Zaragoza. ANESTHESIA: 1% Xylocaine with epinephrine. PROCEDURE: The patient is in the bedside, the catheter exit site was prepared with alcohol. Local a nesthetic infiltrated into the skin and subcutaneous tissue using a 25 gauge needle. Catheter and cu ff dissected free, removed, intact, and discarded. Pressure held to hemostatic. Patient should keep his left seminal fistula. He should avoid IV blood draws above his wrist. Avoid PICC lines, avoid midlines as he does have chronic kidney disease and he may need dialysis in the fu ture.
[2017-12-20] MEDS ORDERED: Ibuprofen 200 MG TAB PO PRN (15:33)
[2017-12-20] MEDS: Atorvastatin Calcium 20 MG TAB PO SCH (20:19)
[2017-12-20] MEDS ORDERED: Benzonatate 100 MG CAP PO PRN (22:27)
[2017-12-21] MEDS ORDERED: Furosemide 40 MG/4 ML VIAL ONE (00:03)
[2017-12-21 06:02] LABS: Anion Gap 14 mmol/L (10-20); BUN (Urea Nitrogen) 48 mg/dL (8.4-25.7); Calc. Creatinine Clearance 27 mL/min (70-130); Calcium 9.4 mg/dL (7.8-10.44); Carbon Dioxide 18 mmol/L (23-31); Chloride 110 mmol/L (98-107); Estimated GFR-MDRD 29; Glucose 121 mg/dL (83-110); Sodium 138 mmol/L (136-145)
--- NOTE | 2017-12-21 08:29 | PDOC.PN ---
- Subjective Encounter Start Date: 12/21/17 Encounter Start Time: 08:00 Subjective: I WAS FELT HORRIBLE LAST NIGHT, NOW I'M BETTER AFTER LASIX. - Objective Resuscitation Status: Resuscitation Status FULL:Full Resuscitation MAR Reviewed: Yes Vital Signs & Weight: Vital Signs (12 hours) Temp Pulse Resp BP Pulse Ox 12/21/17 06:41 100 12/21/17 06:39 91 16 100 12/21/17 04:13 100 12/21/17 04:00 100.0 F H 95 20 148/70 H 100 12/21/17 00:36 93 26 H 100 12/21/17 00:10 99 28 H 169/77 H 99 12/20/17 23:55 96 12/20/17 23:45 90 L Weight Weight 143 lb 9.6 oz I&O: 12/20/17 12/21/17 12/22/17 06:59 06:59 06:59 Intake Total 1320 Output Total 1250 Balance 70 Result Diagrams: 12/20/17 05:12 12/21/17 05:34 Phys Exam - Physical Examination Constitutional: NAD HEENT: PERRLA, sclera anicteric LEFT PTOSIS Neck: full ROM Respiratory: clear to auscultation bilateral Cardiovascular: RRR RAKAN Gastrointestinal: soft, non-tender Musculoskeletal: no edema, pulses present Neurological: non-focal, moves all 4 limbs Psychiatric: normal affect, A&O x 3 Dx/Plan (1) Acute on chronic diastolic CHF (congestive heart failure) Code(s): I50.33 - ACUTE ON CHRONIC DIASTOLIC (CONGESTIVE) HEART FAILURE Status : Acute Comment: fluid removal good with HD. CCM. Improved and stable for discharge form medical standpoint. Will discuss with Cards and Nephro (2) PNA (pneumonia) Code(s): J18.9 - PNEUMONIA, UNSPECIFIED ORGANISM Status: Acute Qualifiers: Pneumonia type: due to unspecified organism Laterality: left Lung location: unspecified part of lung Qualified Code(s): J18.9 - Pneumonia, unspecified organism (3) HLD (hyperlipidemia) Code(s): E78.5 - HYPERLIPIDEMIA, UNSPECIFIED Status: Chronic Qualifiers: Hyperlipidemia type: unspecified Qualified Code(s): E78.5 - Hyperlipidemia , unspecified (4) HTN (hypertension) Code(s): I10 - ESSENTIAL (PRIMARY) HYPERTENSION Status: Chronic Qualifiers: Hypertension type: essential hypertension Qualified Code(s): I10 - Essential (primary) hypertension (5) PVD (peripheral vascular disease) Code(s): I73.9 - PERIPHERAL VASCULAR DISEASE, UNSPECIFIED Status: Chronic Comment: S/P CEA on right yesterday. BP running high, on NTG and Nipride for control. (6) Atrial paroxysmal tachycardia Status: Resolved Comment: Afib redsolved. Paroxysmal. Multaq per Dr lew, [facility] anticoagulation. Will discuss with Dr Lew and Joseph. Cleared for D/C at any point by Dr Gonzáles. Eliquis/Xarelto or coumadin per Dr Lew (7) Elevated troponin Code(s): R74.8 - ABNORMAL LEVELS OF OTHER SERUM ENZYMES Status: Resolved - Plan cont current plan of care, continue antibiotics PATIENT WITH FLUID OVERLOAD AND ORTHOPNEA LAST NIGHT. -: RELIEVED WITH LASIX ...NO HIVES OR ALLERGIC RXN. WILL ADD P.O. FUROSEMIDE -: AND MONITOR. DISPOSITION PER RENAL SERVICE. -: CHANGE TO P.O. ANTIMICROBIALS * .
[2017-12-21] MEDS: Cefepime 0.5 GM, Admixture Fee 1 EACH in Sterile Water 5 ML SLOW IVP SCH (09:03)
[2017-12-21] MEDS: Doxycycline 100 MG CAP PO SCH ×2 (09:05→21:18)
[2017-12-21] MEDS: hydrALAZINE 25 MG TAB PO SCH ×3 (09:05→21:17)
[2017-12-21] MEDS: Furosemide 20 MG TAB PO SCH ×2 (09:06→14:33)
[2017-12-21] MEDS: Carvedilol 6.25 MG TAB PO SCH ×2 (09:06→21:19)
[2017-12-21] MEDS: Dronedarone HCl 400 MG TAB PO SCH (09:06)
[2017-12-21] MEDS: Ascorbic Acid 500 mg Chewable Tablet PO SCH (09:06)
[2017-12-21] MEDS: Rivaroxaban 15 MG TAB PO SCH (09:06)
[2017-12-21] MEDS: Famotidine 20 MG TAB PO SCH (09:07)
[2017-12-21] MEDS: Docusate 100 MG CAP PO SCH ×2 (09:30→21:19)
--- NOTE | 2017-12-21 11:12 | PRG ---
DATE OF SERVICE: 12/21/2017 SUBJECTIVE: This 72-year-old gentleman being seen for stage 4 chronic kidney disease. The patient d enies any nausea, vomiting or chest pain. PHYSICAL EXAMINATION: GENERAL: Awake, alert. VITAL SIGNS: Afebrile, pulse 95, breathing 16, blood pressure 140/70. OBJECTIVE: See above. Awake, alert, in no acute distress. GENERAL APPEARANCE AND MENTAL STATUS: Fair. HEAD/NECK: Normocephalic. Atraumatic. EYES: EOMI. No deformity. EARS: Clear. No ulcers. NOSE: Intact. No lesions. MOUTH: Clear. No discharge. THROAT: Clear. No exudate. LUNGS: Clear. No crackles. CARDIAC: S1, S2. No rub. ABDOMEN: Benign. BS+. GENITALIA/RECTUM: Howard absent. BACK/EXTREMITIES: Edema 0+ Ulcer- NEUROLOGICAL: Alert and motor intact. SKIN: Rash- Bruise- LYMPHATICS: Edema- Ulcer- LABORATORY: Creatinine 2.2, hemoglobin 8.2. ASSESSMENT AND RECOMMENDATIONS: 1. Stage 4 chronic kidney disease, stable. 2. Hypertension, stable. 3. Anemia, stable. 4. Medication based on glomerular filtration rate are appropriate.
--- NOTE | 2017-12-21 12:08 | CON ---
DATE OF CONSULTATION: 12/21/2017 REASON FOR CONSULTATION: Elevated troponin. PRIMARY CARE PROVIDER: Dr. Shea HISTORY OF PRESENT ILLNESS: Mr. Goins is a very pleasant 72-year-old gentleman who I have seen and e valuated in the past. He has a history of chronic kidney disease. He was initially placed on dialys is, but now has increased his urine output and has been off of dialysis over the last 12 days. He recently presented with fevers, chills and shortness of breath. He was diagnosed with pneumonia. His troponin was in the indeterminate range. PAST MEDICAL HISTORY: Hypertension, PVD, Gonzalez's palsy, CAD, chronic kidney disease, paroxysmal atria l fibrillation on Xarelto, carotid endarterectomy. ALLERGIES: None. MEDICATIONS: Aspirin, Lipitor, carvedilol, B12, Cardizem, Multaq, and hydralazine. SOCIAL HISTORY: No current tobacco or alcohol use. REVIEW OF SYSTEMS: Ten-point review of systems reviewed, as above, otherwise negative. PHYSICAL EXAMINATION: VITAL SIGNS: Blood pressure 149/67, pulse 80, temperature 97.9. PHYSICAL EXAMINATION: GENERAL: Patient is a pleasant male who is in no acute distress. The patient appears his stated age. NEUROLOGIC: The patient is alert and oriented times 3 with no focal neurologic deficits. HEENT: Sclerae without icterus. Mouth has moist mucous membranes with normal pallor. NECK: No JVD. Carotid upstroke brisk. No bruits bilaterally. LUNGS: Clear to auscultation with unlabored respirations. BACK: No scoliosis or kyphosis. CARDIAC: Regular rate and rhythm with normal S1 and S2. No S3 or S4 noted. No significant rubs, mur murs, thrills, or gallops noted throughout the precordium. PMI is not displaced. There is no parast ernal heave. ABDOMEN: Soft, nontender, nondistended. No peritoneal signs present. No hepatosplenomegaly. No abn ormal striae. EXTREMITIES: 2+ femoral and 2+ dorsalis pedis pulses. No cyanosis, clubbing, or edema. SKIN: No gross abnormalities. PERTINENT LABS: Hemoglobin 8.2, creatinine 2.27. Peak troponin 0.056. BNP of 1867. IMPRESSION: 1. Pneumonia. 2. Elevated troponin. 3. Peripheral vascular disease. RECOMMENDATIONS: Mr. Goins's increased troponin is likely related to renal dysfunction. His hemoglo bin is also low. At this point, I would not have any further recommendations outside of monitoring h is hemoglobin, blood pressure and heart rate. Antibiotic therapy warranted. I would continue Xarelt o due to history of paroxysmal atrial fibrillation. Otherwise, I have no recommendations. Please re consult if needed.
[2017-12-21] MEDS ORDERED: Acetaminophen 325 MG TAB PO PRN (18:42)
[2017-12-21] MEDS ORDERED: Acetaminophen 500 MG TAB PO PRN (18:42)
[2017-12-21] MEDS: Atorvastatin Calcium 20 MG TAB PO SCH (21:19)
[2017-12-22 05:38] LABS: Anion Gap 15 mmol/L (10-20); BUN (Urea Nitrogen) 54 mg/dL (8.4-25.7); Calc. Creatinine Clearance 29 mL/min (70-130); Calcium 9.3 mg/dL (7.8-10.44); Carbon Dioxide 20 mmol/L (23-31); Chloride 109 mmol/L (98-107); Estimated GFR-MDRD 30; Glucose 93 mg/dL (83-110); Potassium 3.2 mmol/L (3.5-5.1); Sodium 141 mmol/L (136-145)
[2017-12-22] MEDS: Famotidine 20 MG TAB PO SCH (08:40)
[2017-12-22] MEDS: Dronedarone HCl 400 MG TAB PO SCH (08:40)
[2017-12-22] MEDS: Doxycycline 100 MG CAP PO SCH ×2 (08:40→20:28)
[2017-12-22] MEDS: Rivaroxaban 15 MG TAB PO SCH (08:40)
[2017-12-22] MEDS: Ascorbic Acid 500 mg Chewable Tablet PO SCH (08:40)
[2017-12-22] MEDS: Furosemide 40 MG TAB PO SCH (08:41)
[2017-12-22] MEDS: Carvedilol 6.25 MG TAB PO SCH ×2 (08:41→20:29)
[2017-12-22] MEDS: Docusate 100 MG CAP PO SCH ×2 (08:42→20:29)
--- NOTE | 2017-12-22 09:42 | PRG ---
DATE OF SERVICE: 12/22/2017 SUBJECTIVE: A 72-year-old gentleman being seen for CKD stage 4. The patient denies any nausea, vomi ting, or chest pain. PHYSICAL EXAMINATION: GENERAL: Patient is awake, alert. VITAL SIGNS: Afebrile, pulse 82, breathing 16, blood pressure 181/80. HEAD/NECK: Normocephalic. Atraumatic. EYES: EOMI. No deformity. EARS: Clear. No ulcers. NOSE: Intact. No lesions. MOUTH: Clear. No discharge. THROAT: Clear. No exudate. LUNGS: Clear. No crackles. CARDIAC: S1, S2. No rub. ABDOMEN: Benign. BS+. GENITALIA/RECTUM: Howard absent. BACK/EXTREMITIES: Edema 0+ Ulcer- NEUROLOGICAL: Alert and motor intact. SKIN: Rash- Bruise- LYMPHATICS: Edema- Ulcer- LABORATORY DATA: Show hemoglobin 8.2, creatinine 2.1. ASSESSMENT AND PLAN: 1. Chronic kidney disease stage 3, stable. 2. Hypertension, stable. 3. Anemia, stable. 4. Hypokalemia. Recommend 20 mEq of potassium by mouth.
[2017-12-22] MEDS: hydrALAZINE 25 MG TAB PO SCH ×3 (10:00→20:28)
--- NOTE | 2017-12-22 10:50 | PDOC.PN ---
- Subjective Encounter Start Date: 12/22/17 Encounter Start Time: 10:48 Subjective: COMFORTABLE WITH AT BEDSIDE, FEELS BETTER - Objective Resuscitation Status: Resuscitation Status FULL:Full Resuscitation MAR Reviewed: Yes Vital Signs & Weight: Vital Signs (12 hours) Temp Pulse Resp BP Pulse Ox 12/22/17 08:48 91 L 12/22/17 07:53 98.6 F 82 20 181/80 H 12/22/17 06:43 96 12/22/17 06:42 76 15 96 12/22/17 04:00 99.2 F 80 18 146/67 H 100 12/22/17 00:58 83 16 96 12/22/17 00:00 65 Weight Weight 143 lb 9.6 oz I&O: 12/21/17 12/22/17 12/23/17 06:59 06:59 06:59 Intake Total 1320 870 Output Total 1250 1550 Balance 70 -680 Result Diagrams: 12/20/17 05:12 12/22/17 05:18 Phys Exam - Physical Examination Constitutional: NAD HEENT: PERRLA, moist MMs, sclera anicteric PTOSIS Neck: supple, full ROM Respiratory: no wheezing, no rhonchi Cardiovascular: RRR Gastrointestinal: soft, non-tender Musculoskeletal: no edema Neurological: non-focal, moves all 4 limbs Psychiatric: normal affect, A&O x 3 Skin: no rash Dx/Plan (1) Acute on chronic diastolic CHF (congestive heart failure) Code(s): I50.33 - ACUTE ON CHRONIC DIASTOLIC (CONGESTIVE) HEART FAILURE Status : Acute Comment: fluid removal good with HD. CCM. Improved and stable for discharge form medical standpoint. Will discuss with Cards and Nephro (2) PNA (pneumonia) Code(s): J18.9 - PNEUMONIA, UNSPECIFIED ORGANISM Status: Acute Qualifiers: Pneumonia type: due to unspecified organism Laterality: left Lung location: unspecified part of lung Qualified Code(s): J18.9 - Pneumonia, unspecified organism (3) HLD (hyperlipidemia) Code(s): E78.5 - HYPERLIPIDEMIA, UNSPECIFIED Status: Chronic Qualifiers: Hyperlipidemia type: unspecified Qualified Code(s): E78.5 - Hyperlipidemia , unspecified (4) HTN (hypertension) Code(s): I10 - ESSENTIAL (PRIMARY) HYPERTENSION Status: Chronic Qualifiers: Hypertension type: essential hypertension Qualified Code(s): I10 - Essential (primary) hypertension (5) PVD (peripheral vascular disease) Code(s): I73.9 - PERIPHERAL VASCULAR DISEASE, UNSPECIFIED Status: Chronic Comment: S/P CEA on right yesterday. BP running high, on NTG and Nipride for control. (6) Hypokalemia Code(s): E87.6 - HYPOKALEMIA Status: Acute - Plan REPLETE ELECTROLYTES, AMBULATE AND OBTAIN PULSE OX..HOME O2 -: IF NEEDED. F/U RENAL AND CARDS OUTPATIENT. P.O. ABX AT D/C * .
[2017-12-22] MEDS: Cefepime 0.5 GM, Admixture Fee 1 EACH in Sterile Water 5 ML SLOW IVP SCH (13:05)
[2017-12-22] MEDS: Atorvastatin Calcium 20 MG TAB PO SCH (20:28)
[2017-12-23 05:53] LABS: Anion Gap 15 mmol/L (10-20); BUN (Urea Nitrogen) 57 mg/dL (8.4-25.7); Calc. Creatinine Clearance 30 mL/min (70-130); Calcium 9.3 mg/dL (7.8-10.44); Carbon Dioxide 19 mmol/L (23-31); Chloride 108 mmol/L (98-107); Estimated GFR-MDRD 33; Glucose 95 mg/dL (83-110); Sodium 139 mmol/L (136-145)
--- NOTE | 2017-12-23 08:25 | PRG ---
DATE OF SERVICE: 12/23/2017 SUBJECTIVE: This is a 72-year-old male being seen for stage 3 chronic kidney disease. The patient d enies any nausea, vomiting, or chest pain. PHYSICAL EXAMINATION: GENERAL: Patient is awake, alert. VITAL SIGNS: Afebrile, pulse 77, breathing 16, blood pressure is 169/75. HEAD/NECK: Normocephalic. Atraumatic. EYES: EOMI. No deformity. EARS: Clear. No ulcers. NOSE: Intact. No lesions. MOUTH: Clear. No discharge. THROAT: Clear. No exudate. LUNGS: Clear. No crackles. CARDIAC: S1, S2. No rub. ABDOMEN: Benign. BS+. GENITALIA/RECTUM: Howard absent. BACK/EXTREMITIES: Edema 0+ Ulcer- NEUROLOGICAL: Alert and motor intact. SKIN: Rash- Bruise- LYMPHATICS: Edema- Ulcer- LABORATORY DATA: Show hemoglobin 8.2, potassium 3. ASSESSMENT AND RECOMMENDATIONS: 1. Stage 3 chronic kidney disease, stable. 2. Hypokalemia. Recommend high potassium diet. 3. Anemia, stable. 4. Metabolic acidosis, stable. No indication for dialysis at this time. I will sign off. Patient will follow up with Dr. Chacon in 1 week.
[2017-12-23 08:38] VITALS: TEMP 98.4
[2017-12-23] MEDS: Doxycycline 100 MG CAP PO SCH (08:38)
[2017-12-23] MEDS: Ascorbic Acid 500 mg Chewable Tablet PO SCH (08:38)
[2017-12-23] MEDS: Rivaroxaban 15 MG TAB PO SCH (08:38)
[2017-12-23] MEDS: Carvedilol 6.25 MG TAB PO SCH (08:39)
[2017-12-23] MEDS: Potassium Chloride 20 MEQ TAB PO STA ×2 (08:39→09:58)
[2017-12-23 08:40] VITALS: BP 170/78
[2017-12-23] MEDS: Furosemide 40 MG TAB PO SCH (08:41)
[2017-12-23] MEDS: Dronedarone HCl 400 MG TAB PO SCH (08:41)
[2017-12-23] MEDS: hydrALAZINE 25 MG TAB PO SCH (08:42)
[2017-12-23] MEDS: Docusate 100 MG CAP PO SCH (08:42)
[2017-12-23] MEDS: Famotidine 20 MG TAB PO SCH (08:43)
[2017-12-23] MEDS ORDERED: Cefuroxime Axetil 250 MG TAB PO SCH (09:00)
--- NOTE | 2017-12-23 09:22 | DIS ---
DATE OF ADMISSION: 12/19/2017 DATE OF DISCHARGE: 12/23/2017 PRIMARY DISCHARGE DIAGNOSES: 1. Pneumonia. 2. Systolic congestive heart failure. 3. Peripheral vascular disease. 4. Chronic kidney disease stage 3. 5. Paroxysmal atrial fibrillation. 6. Chronic obstructive pulmonary disease. HOSPITAL COURSE: The patient is a pleasant gentleman that presented complaining of increased shortne ss of breath with respiratory failure and hypoxemia. He was satting 79% on admission. Chest x-ray s howed some pulmonary vascular congestion with bibasilar infiltrates. The patient was thought to be a llergic to LASIX, so he was not taking any furosemide at home. He was treated empirically here for c ommunity-acquired pneumonia with cefepime as well as doxycycline. The patient continued to improve d uring his stay. The patient had an episode of excessive respiratory distress. He was given IV Lasix which led to the appropriate amount of diuresis. The patient had no hives or any true allergic reac tion to Lasix. Thus, he was started on p.o. Lasix. He continued to diurese and his respiratory stat us continued to improve. The patient was seen by the Nephrology Service as he is a known chronic kid erika disease patient stage 4. Patient's creatinine actually improved and his dialysis access was maury renard during his hospital stay. Dr. Ruiz closely followed the patient and he progressed appropriately and was deemed stable for discharge from renal point of view. CONSULTANTS: Nephrology, General Surgery. PROCEDURES: Removal of hemodialysis catheter took place on 12/19/2017. DISCHARGE DISPOSITION: To home. DISCHARGE DIET: Low sodium and heart healthy. DISCHARGE ACTIVITY: As tolerated. The patient is free to return to work as soon as he wants to. DISCHARGE MEDICATIONS: We continued his home medication regimen. ADDITIONAL MEDICATIONS: Include Ceftin 250 mg p.o. b.i.d. for 5 days, Lasix 40 mg p.o. daily, and po tassium chloride 10 mEq p.o. b.i.d. PHYSICAL EXAMINATION: GENERAL: He is in no acute distress. HEAD: Normocephalic, atraumatic. LUNGS: Clear to auscultation. CARDIAC: Regular rate and rhythm. No murmurs, regurg or gallops. ABDOMEN: Nontender, nondistended. EXTREMITIES: No clubbing, cyanosis or edema. FOLLOWUP: The patient is to follow up with his primary care doctor, Dr. Gage on 12/25/2017. He i s also to follow up in the [facility] as prescribed by Dr. Ruiz.
[2017-12-23] MEDS: Cefepime 0.5 GM, Admixture Fee 1 EACH in Sterile Water 5 ML SLOW IVP SCH (09:59)
[2017-12-23] MEDS ORDERED: Potassium Chloride 10 MEQ TAB PO SCH (17:00)
== END 2017-12-23 10:42 | disposition home or self-care (01) | DRG 291 ==
LOC: ERS 18:55 → 2NO 22:53
PROVIDERS: ADMIT Internal Medicine; ATTEND Internal Medicine
PROC: 05PYX3Z Removal of Infusion Device from Upper Vein, External Approach (ICD-10-PCS; principal; 2017-12-21)
DX: I13.0 Hypertensive heart and chronic kidney disease with heart failure and stage 1 through stage 4 chronic kidney disease, or unspecified chronic kidney disease (principal); J96.01 Acute respiratory failure with hypoxia; E87.2 Acidosis; N18.4 Chronic kidney disease, stage 4 (severe); J13 Pneumonia due to Streptococcus pneumoniae; I48.0 Paroxysmal atrial fibrillation; I24.8 Other forms of acute ischemic heart disease; D63.1 Anemia in chronic kidney disease; I50.33 Acute on chronic diastolic (congestive) heart failure; J44.0 Chronic obstructive pulmonary disease with (acute) lower respiratory infection; I73.9 Peripheral vascular disease, unspecified; G51.0 Bell's palsy; Z79.82 Long term (current) use of aspirin; E78.5 Hyperlipidemia, unspecified; E87.6 Hypokalemia; I25.10 Atherosclerotic heart disease of native coronary artery without angina pectoris
CPT/HCPCS: 36415; 71045; 80048; 80053; 80069; 81003; 81015; 82550; 82553; 83605; 83690; 83735; 83880; 84484; 85025; 85610; 85730; 87040; 87077; 87086; 87186; 87804; 93005; 94640; 94760; 96365; 96375; A4216; J0692; J1642; J1940; J3370; J7620

== ENCOUNTER 2018-03-28 12:03 | Inpatient (IN) | payer MEDICARE, OTHER ==
[2018-03-28] MEDS ORDERED: Ondansetron ODT 4 MG TAB SL PRN (14:46)
[2018-03-28] MEDS ORDERED: Ondansetron HCl/PF 4 MG/2 ML Vial IVP PRN (14:46)
[2018-03-28] MEDS ORDERED: HYDROcodone/Acetaminophen 5/325 mg Tablet PO PRN (15:02)
[2018-03-28] MEDS ORDERED: Acetaminophen 325 MG TAB PO PRN (15:02)
[2018-03-28 15:17] VITALS: BMI 21.6
[2018-03-28 15:41] LABS: Troponin I 0.018 ng/mL (< 0.028)
[2018-03-28] MEDS: Potassium Chloride 10 MEQ TAB PO SCH (15:44)
[2018-03-28] MEDS ORDERED: hydrALAZINE 25 MG TAB PO SCH (15:45)
[2018-03-28] MEDS ORDERED: Polyethylene Glycol 3350 17 GM Packet PO PRN (16:03)
--- NOTE | 2018-03-28 16:36 | HP ---
DATE OF ADMISSION: 03/28/2018 CHIEF COMPLAINT: Shortness of breath. HISTORY OF PRESENT ILLNESS: This is a 72-year-old male with a known history of congestive h eart failure and history of atrial fibrillation and is a patient of Dr. Oneil. He was in his [facility] state of [facility] at home, was having some worsening shortness of breath for the past 1 week which p rogressively got worsened today and he went to [facility] and he was given Lasix as he was found to have congestive heart failure on the chest x-ray. The patient had elevated BNP of 2800 and was hypox ic and was started on 4 liters of nasal cannula. He denies having any chest pain. He does complain o f orthopnea, unable to lie down on the bed without worsening cough. He denied having any weight gain , but he had edema in his lower extremities. Discussed with the patient today. He was alert and carmina ented, did not appear to be in any acute distress, and he mentioned he did not want to be intubated a nd not resuscitated and allowing him to go if his heart stops beating. The patient has been on hemodialysis until recent November and he was off of dialysis and is on close follow up with Nephrology and Dr. Chacon did see the patient in the ER. PAST MEDICAL HISTORY: 1. Chronic kidney disease stage 5. 2. Congestive heart failure, diastolic dysfunction. 3. Atrial fibrillation. 4. Hypertension. 5. Hyperlipidemia. 6. Peripheral vascular disease. 7. History of bilateral carotid artery disease. 8. Chronic obstructive pulmonary disease. PAST SURGICAL HISTORY: 1. Bilateral carotid artery endarterectomy. 2. Dialysis access catheter. 3. Stent placement of the left lower extremity. FAMILY HISTORY: No significant family history of coronary artery disease. Family history has been r eviewed thoroughly. SOCIAL HISTORY: The patient lives at home along with his . No history of alcohol, no history of illicit drug use. ALLERGIES: No known drug allergies. HOME MEDICATIONS: 1. Iron. 2. Glucosamine. 3. Polyethylene glycol 17 grams. 4. Aspirin 81 mg p.o. daily. 5. Carvedilol 12.5 mg p.o. daily. 6. Lasix 40 mg p.o. daily. 7. Diltiazem 120 mg p.o. daily. 8. Dronedarone 400 mg p.o. b.i.d. 9. Hydralazine 100 mg p.o. t.i.d. 10. Xarelto 40 mg p.o. daily. REVIEW OF SYSTEMS: All 12 systems are reviewed with the patient thoroughly and found to be negative at this time. Systems reviewed are HEENT, CVS, MEETING COORDINATOR, respiratory, GI, , musculoskeletal, skin/integ umentary, and psychiatric. PHYSICAL EXAMINATION: VITAL SIGNS: Blood pressures are 174/77, heart rate is 82, respiratory rate is 18, saturation 98%. GENERAL: The patient is moderately built and moderately nourished. He does not appear to be in acut e distress, alert, oriented x3. HEENT: Atraumatic, normocephalic, PERRLA. Extraocular muscles intact. Oral mucosa is pink and mois t. CARDIOVASCULAR: S1, S2 normal. No murmurs, rubs or gallops. LUNGS: Bilateral air entry was equal. Crackles are noted in the lower bases. ABDOMEN: Soft and nontender. No guarding. No rebound tenderness. Bowel sounds normal. MUSCULOSKELETAL: No calf tenderness. Pedal edema is noted up to the knees, both legs. Pitting fabian a 1-2+. No joint tenderness. No joint swelling. SKIN: No cyanosis, no erythema, no rash, no pallor. CRANIAL NERVE SYSTEMS: II-XII were intact. No focal deficits were noted. PSYCHIATRIC: No signs of suicidal ideation. No signs of trisha was noted. LABORATORY DATA: Labs were done at [facility] with WBC of 10.0, hemoglobin of 8.1, hematocrit 25.5, platelets 246. CMP: Sodium is 140, potassium is 4.2, chloride is 109, bicarb is 18, BUN is 55, creatinine is 2.26. Blood sugar is 132. BNP 2800. ASSESSMENT: 1. Acute congestive heart failure, likely diastolic dysfunction. 2. Acute hypoxic respiratory failure. 3. Chronic obstructive pulmonary disease, no evidence of exacerbation. 4. Peripheral vascular disease. 5. History of atrial fibrillation, on anticoagulation. 6. Hypertension, uncontrolled. PLAN: 1. Plan is to closely monitor this patient. The patient has stated clearly about code status as he does not want to be resuscitated. 2. We will continue with low dose of Lasix at this time with 20 mg IV b.i.d. as the patient has wors ening renal functions and has been on dialysis until recently. As the patient received 40 mg of Lasi x at the [facility], he is already feeling much better. We will closely monitor at this time. We w ill get a 2D echo and we will consult Cardiology. I will continue the patient on PA inhibitors and beta christiano. 3. The patient has uncontrolled hypertension. We will continue the patient on home medications. He is on hydralazine, PA inhibitor, and beta christiano. Plan to keep the blood pressure less than 135/8 5. 4. History of atrial fibrillation, on Multaq and Xarelto. We will continue with these medications a t this time. Heart rate is under control. We will closely monitor. 5. History of COPD, no evidence of an exacerbation noted. We will continue to monitor at this time. 6. The patient is on oxygen likely from congestive heart failure exacerbation. We will plan to wean off the oxygen as he gets diuresed. We will reevaluate on the day of discharge if he needs home oxy gen. 7. Deep venous thrombosis prophylaxis. The patient is on Xarelto. We will closely monitor. I spent 75 minutes with this patient.
[2018-03-28] MEDS: Ferrous Sulfate 325 MG TAB PO SCH (17:09)
[2018-03-28] MEDS ORDERED: Amlodipine 5 MG TAB PO SCH (18:30)
[2018-03-28] MEDS: Famotidine 20 MG TAB PO SCH (20:42)
[2018-03-28] MEDS: Dronedarone HCl 400 MG TAB PO SCH (20:42)
[2018-03-28] MEDS: Carvedilol 3.125 MG TAB PO SCH (20:42)
[2018-03-28] MEDS: hydrALAZINE 25 MG TAB PO SCH (20:43)
[2018-03-28] MEDS: Atorvastatin Calcium 20 MG TAB PO SCH (20:43)
[2018-03-28] MEDS: Docusate 100 MG CAP PO SCH (20:43)
--- NOTE | 2018-03-29 05:13 | CON ---
DATE OF CONSULTATION: 03/28/2018 CONSULTING PHYSICIAN: Dr. Domingo. REASON FOR CONSULTATION: Acute kidney injury on chronic kidney disease, stage 4. REASON FOR ADMISSION: Shortness of breath. HISTORY OF PRESENT ILLNESS: A 72-year-old male with history of chronic kidney disease stage 4, atria l fibrillation, hypertension, hyperlipidemia, who came to the hospital with shortness of breath. Susan tran was on dialysis for few months and was taken off and renal function is stable, but has been havi ng worsening shortness of breath even though he was on Lasix and is being admitted for possible conge stive heart failure. No fever, chills. No chest pain, palpitations. PAST MEDICAL HISTORY: Positive for chronic kidney disease stage 4, CHF, atrial fibrillation, hyperte nsion, hyperlipidemia, peripheral vascular disease. PAST SURGICAL HISTORY: Bilateral carotid endarterectomy, dialysis access surgery, stent placement. HOME MEDICATIONS: Iron, glucosamine, polyethylene glycol, aspirin, carvedilol, Lasix, diltiazem, carrington nedarone, hydralazine, Xarelto. ALLERGIES: No known drug allergies. SOCIAL HISTORY: No smoking, alcohol, illicit drug abuse. FAMILY HISTORY: No history of any kidney disease. REVIEW OF SYSTEMS: The following complete review of systems was negative, unless otherwise mentioned in the HPI or below: Constitutional: Weight loss or gain, ability to conduct usual activities. Sk in: Rash, itching. Eyes: Double vision, pain. ENT/Mouth: Nose bleeding, neck stiffness, pain, te nderness. Cardiovascular: Palpitations, dyspnea on exertion, orthopnea. Respiratory: Shortness of breath, wheezing, cough, hemoptysis, fever, or night sweats. Gastrointestinal: Poor appetite, abdo nancy pain, heartburn, nausea, vomiting, constipation, or diarrhea. Genitourinary: Urgency, frequen cy, dysuria, nocturia. Musculoskeletal: Pain, swelling. Neurologic/Psychiatric: Anxiety, depressi on. Allergy/Immunologic: Skin rash, bleeding tendency. PHYSICAL EXAMINATION: GENERAL: This is a thin well-built male in mild distress. VITAL SIGNS: Temperature 98.5, pulse 71, respiratory rate 18, blood pressure 169/79. HEENT: Atraumatic, normocephalic. Oral mucosa is moist. NECK: Supple, no masses. HEART: S1, S2 heard. RESPIRATORY: Reduced breath sounds. ABDOMEN: Soft. MUSCULOSKELETAL: 1+ edema. DERMATOLOGIC: No skin rash. NEUROLOGIC: Alert, awake. PSYCHIATRIC: Mood and affect normal. LABORATORY DATA: Hemoglobin 8.1, potassium 3.5, BUN is 55, creatinine is 2.26 with GFR of 29. ASSESSMENT AND PLAN: 1. Acute kidney injury on chronic kidney disease, stage 4. Renal function is actually stable close to his baseline. 2. Metabolic acidosis. 3. Elevated BNP. 4. Fluid overload. 5. Cardiorenal syndrome. Agree with Lasix for now. 6. Anemia. We will add Epogen. Check iron studies, rule out any bleed. Plan is to monitor renal function. Check iron studies in the morning. We will give a dose of Epogen . Okay with furosemide. We will follow.
[2018-03-29 05:41] LABS: #Eosinphils 0.3 thou/uL (0.0-0.7); #Lymphocytes 0.8 thou/uL (1.20-3.40); #Monocytes 0.8 thou/uL (0.11-0.59); #Neutrophils 6.8 thou/uL (1.40-6.50); %Basophils 0.5 % (0.0-1.0); %Eosinophils 3.2 % (0.0-10.0); %Lymphocytes 8.8 % (21.0-51.0); %Monocytes 9.2 % (0.0-10.0); %Neutrophils 78.3 % (42.0-75.0); Hemoglobin 8.3 g/dL (14.0-18.0); Mean Corpuscular HGB CONC 30.6 g/dL (32.0-36.0); Mean Corpuscular Hemoglobin 24.7 pg (27.0-31.0); Mean Corpuscular Volume 80.7 fl (80.0-94.0); Mean Platelet Volume 8.3 fL (7.4-10.4); Platelet Count 237 thou/uL (130-400); RBC Distribution Width 16.6 % (11.5-14.5); Red Blood Cell (RBC) Count 3.34 mill/uL (4.70-6.10); White Blood Cell (WBC) Count 8.7 thou/uL (4.8-10.8)
[2018-03-29] MEDS: Furosemide 20 MG/2 ML VIAL SLOW IVP SCH ×2 (05:45→13:41)
[2018-03-29 06:21] LABS: Iron 18 ug/dL (65-175); Iron Binding Capacity, Total 320 mcg/dL (261-462)
[2018-03-29 06:25] LABS: Anion Gap 14 mmol/L (10-20); BUN (Urea Nitrogen) 47 mg/dL (8.4-25.7); Calc. Creatinine Clearance 30 mL/min (70-130); Carbon Dioxide 22 mmol/L (23-31); Chloride 106 mmol/L (98-107); Estimated GFR-MDRD 32; Glucose 101 mg/dL (83-110); Potassium 3.4 mmol/L (3.5-5.1); Sodium 139 mmol/L (136-145); Uric Acid 15.1 mg/dL (3.5-7.2)
[2018-03-29] MEDS ORDERED: Amlodipine 5 MG TAB PO SCH (09:00)
[2018-03-29] MEDS ORDERED: BOSWELLIA SERRA T PO SCH (09:00)
[2018-03-29] MEDS ORDERED: GLUCOSAMINE PO SCH (09:00)
[2018-03-29] MEDS ORDERED: D3 PO SCH (09:00)
[2018-03-29] MEDS ORDERED: Iron Fum,Ps Cmp/Vit C/Niacin [Integra] 1 CAP PO SCH ×2 (09:00)
[2018-03-29] MEDS ORDERED: Dronedarone HCl 400 MG TAB PO SCH (09:00)
[2018-03-29] MEDS ORDERED: Enoxaparin Sodium 40 MG/0.4 ML SYRINGE SC SCH (09:00)
[2018-03-29] MEDS: hydrALAZINE 25 MG TAB PO SCH ×3 (09:02→21:24)
[2018-03-29] MEDS: Dronedarone HCl 400 MG TAB PO SCH ×2 (09:03→21:24)
[2018-03-29] MEDS: Ascorbic Acid 500 mg Chewable Tablet PO SCH (09:03)
[2018-03-29] MEDS: Carvedilol 3.125 MG TAB PO SCH ×2 (09:03→21:24)
[2018-03-29] MEDS: Rivaroxaban 15 MG TAB PO SCH (09:03)
[2018-03-29] MEDS: Potassium Chloride 10 MEQ TAB PO SCH ×2 (09:03→17:34)
[2018-03-29] MEDS: Ferrous Sulfate 325 MG TAB PO SCH ×2 (09:04→17:34)
[2018-03-29] MEDS: Docusate 100 MG CAP PO SCH ×2 (09:04→21:24)
--- NOTE | 2018-03-29 10:09 | PDOC.PN ---
- Subjective Encounter Start Date: 03/29/18 Encounter Start Time: 07:25 Subjective: breathing better, no chest pain or palp -: is amb in room now - Objective Resuscitation Status: Resuscitation Status DNR:Do Not Resuscitate MAR Reviewed: Yes Vital Signs & Weight: Vital Signs (12 hours) Temp Pulse Resp BP BP Pulse Ox 03/29/18 07:46 98.0 F 86 24 H 178/84 H 95 03/29/18 04:00 98.9 F 84 18 170/87 H 99 Weight Weight 140 lb 6.4 oz I&O: 03/28/18 03/29/18 03/30/18 06:59 06:59 06:59 Intake Total 1080 Output Total 2049 Balance -970 Result Diagrams: 03/29/18 05:11 03/29/18 05:11 Phys Exam - Physical Examination HEENT: PERRLA, moist MMs Neck: no JVD, supple Respiratory: no wheezing rales+ Cardiovascular: RRR, no rub Gastrointestinal: soft, no distention, positive bowel sounds Musculoskeletal: no edema, pulses present Neurological: non-focal, moves all 4 limbs Psychiatric: normal affect, A&O x 3 Dx/Plan (1) Acute on chronic diastolic CHF (congestive heart failure) Code(s): I50.33 - ACUTE ON CHRONIC DIASTOLIC (CONGESTIVE) HEART FAILURE Status : Acute (2) Acute kidney injury superimposed on CKD Code(s): N17.9 - ACUTE KIDNEY FAILURE, UNSPECIFIED; N18.9 - CHRONIC KIDNEY DISEASE, UNSPECIFIED Status: Acute (3) CAD (coronary artery disease) Code(s): I25.10 - ATHSCL HEART DISEASE OF [place] CORONARY ARTERY W/O ANG PCTRS Status: Chronic Qualifiers: Coronary Disease-Associated Artery/Lesion type: [place] artery [place] vs. transplanted heart: [place] heart Associated angina: without angina Qualified Code(s): I25.10 - Atherosclerotic heart disease of [place] coronary artery without angina pectoris (4) CKD (chronic kidney disease) stage 3, GFR 30-59 ml/min Status: Chronic Comment: (5) COPD (chronic obstructive pulmonary disease) Status: Chronic Qualifiers: COPD type: chronic bronchitis Chronic bronchitis type: unspecified Qualified Code(s): J42 - Unspecified chronic bronchitis (6) HLD (hyperlipidemia) Code(s): E78.5 - HYPERLIPIDEMIA, UNSPECIFIED Status: Chronic Qualifiers: Hyperlipidemia type: unspecified (7) HTN (hypertension) Code(s): I10 - ESSENTIAL (PRIMARY) HYPERTENSION Status: Chronic Qualifiers: Hypertension type: essential hypertension (8) PAD (peripheral artery disease) Code(s): I73.9 - PERIPHERAL VASCULAR DISEASE, UNSPECIFIED Status: Chronic (9) Moderate aortic stenosis Code(s): I35.0 - NONRHEUMATIC AORTIC (VALVE) STENOSIS Status: Chronic (10) Afib Code(s): I48.91 - UNSPECIFIED ATRIAL FIBRILLATION Status: Chronic Qualifiers: Atrial fibrillation type: chronic Qualified Code(s): I48.2 - Chronic atrial fibrillation - Plan is on gentle diuresis due to naeem/ckd -: on asp, xarelto, lipitor, coreg, cardizem cd and multaq -: high dose hydralazine -: creatinine around 2 this am -: last known ef was 55%, chronic anemia due to ckd * . Review of Systems - Medications/Allergies Allergies/Adverse Reactions: Allergies Allergy/AdvReac Type Severity Reaction Status Date / Time gabapentin Allergy Severe Swollen Verified 08/24/17 20:23 Lips lisinopril Allergy Mild Verified 08/24/17 20:23 Medications: Current Medications Acetaminophen (Tylenol) 650 mg PO Q4H PRN PRN Reason: Headache/Fever or Pain Hydrocodone Bitart/Acetaminophen ([place] 5/325) 1 tab PO Q4H PRN PRN Reason: Moderate Pain (4-6) Ascorbic Acid (Vitamin C) 500 mg PO DAILY [facility] Last Admin: 03/29/18 09:03 Dose: 500 mg Aspirin (Aspirin Chewable) 81 mg PO DAILY [facility] Last Admin: 03/29/18 09:03 Dose: 81 mg Atorvastatin Calcium (Lipitor) 20 mg PO HS [facility] Last Admin: 03/28/18 20:43 Dose: 20 mg Carvedilol (Coreg) 3.125 mg PO BID [facility] Last Admin: 03/29/18 09:03 Dose: 3.125 mg Diltiazem HCl (Cardizem Cd) 120 mg PO DAILY [facility] Last Admin: 03/29/18 09:03 Dose: 120 mg Docusate Sodium (Colace) 100 mg PO BID [facility] Last Admin: 03/29/18 09:04 Dose: Not Given Dronedarone (Multaq) 400 mg PO BID [facility] Last Admin: 03/29/18 09:03 Dose: 400 mg Famotidine (Pepcid) 20 mg PO 2100 [facility] Last Admin: 03/28/18 20:42 Dose: 20 mg Ferrous Sulfate (Feosol) 325 mg PO BID-[facility] Last Admin: 03/29/18 09:04 Dose: 325 mg Furosemide (Lasix) 20 mg SLOW IVP 0600,1400 [facility] Last Admin: 03/29/18 05:45 Dose: 20 mg Hydralazine HCl (Apresoline) 100 mg PO TID [facility] Last Admin: 03/29/18 09:02 Dose: 100 mg Polyethylene Glycol (Miralax) 17 gm PO DAILY PRN PRN Reason: Constipation Potassium Chloride (Klor-Con 10) 10 meq PO BID-[facility] Last Admin: 03/29/18 09:03 Dose: 10 meq Rivaroxaban (Xarelto) 15 mg PO DAILY [facility] Last Admin: 03/29/18 09:03 Dose: 15 mg
--- NOTE | 2018-03-29 18:24 | CON ---
DATE OF CONSULTATION: 03/29/2018 REASON FOR CONSULTATION: Shortness of breath and elevated BNP. HISTORY OF PRESENT ILLNESS: Mr. Goins is a very pleasant old 72-year-old gentleman I have seen and e valuated in the past. He has a history of atrial fibrillation in addition to diastolic dysfunction. He also has a history of moderate aortic stenosis and chronic kidney disease. He recently presented with shortness of breath. He has had lower extremity edema in addition to PND and orthopnea. He pr esented to the emergency room with markedly elevated BNP. His LVEF has been normal in the recent pas t. His hemoglobin has also decreased at 8.3. PAST MEDICAL HISTORY: As above including PVD, Gonzalez's palsy, hypertension, carotid endarterectomy. ALLERGIES: GABAPENTIN and LISINOPRIL. SOCIAL HISTORY: No current tobacco or alcohol use. He is currently . HOME MEDICATIONS: Include bisoprolol, amlodipine, hydralazine, Tylenol, Lipitor, Lasix, nifedipine, calcitriol, and aspirin. REVIEW OF SYSTEMS: Ten-point review of systems is reviewed and as above, otherwise negative. PHYSICAL EXAMINATION: GENERAL: The patient is a pleasant male who is in no acute distress. The patient appears his stated age. VITAL SIGNS: Blood pressure is 164/73, pulse 80, temperature 98.9. NEUROLOGIC: The patient is alert and oriented times 3 with no focal neurologic deficits. HEENT: Sclerae without icterus. Mouth has moist mucous membranes with normal pallor. NECK: No JVD. Carotid upstroke brisk. No bruits bilaterally. LUNGS: Crackles noted bilaterally. BACK: No scoliosis or kyphosis. CARDIAC: Regular rate and rhythm with normal S1 and S2. No S3 or S4 noted. No significant rubs, th rills, or gallops noted throughout the precordium. PMI is not displaced. There is no parasternal he ave. 2/6 systolic ejection murmur. ABDOMEN: Soft, nontender, nondistended. No peritoneal signs present. No hepatosplenomegaly. No ab normal striae. EXTREMITIES: 2+ femoral and 2+ dorsalis pedis pulses. No cyanosis, clubbing, or edema. SKIN: No gross abnormalities. PERTINENT LABS: Hemoglobin 8.3, creatinine 2.03, which is his baseline. BNP of 2686. IMPRESSION: 1. Shortness of breath. 2. Acute on chronic diastolic heart failure. 3. Chronic kidney disease. 4. Anemia. RECOMMENDATIONS: Mr. Goins' symptoms are likely multifactorial. He does have a history of anemia in addition to chronic kidney disease in addition to moderate aortic stenosis. His last stress study d ated 05/2017 did not suggest significant ischemia. I did discuss proceeding with coronary angiograph y for further assessment. I also reviewed the echo. At this point, he does not initiate a more aggr essive approach. Again, I do feel his symptoms are multifactorial including anemia, chronic kidney d isease and moderate aortic stenosis. He may also have an underlying coronary disease, but is not pre pared to proceed with any aggressive means or measures. We will continue Lasix, although concern wou ld be worsening creatinine.
[2018-03-29] MEDS: Famotidine 20 MG TAB PO SCH (21:24)
[2018-03-29] MEDS: Atorvastatin Calcium 20 MG TAB PO SCH (21:24)
[2018-03-30 05:56] LABS: Anion Gap 15 mmol/L (10-20); BUN (Urea Nitrogen) 47 mg/dL (8.4-25.7); Calc. Creatinine Clearance 31 mL/min (70-130); Calcium 8.8 mg/dL (7.8-10.44); Carbon Dioxide 22 mmol/L (23-31); Chloride 105 mmol/L (98-107); Estimated GFR-MDRD 34; Glucose 90 mg/dL (83-110); Potassium 3.2 mmol/L (3.5-5.1); Sodium 139 mmol/L (136-145)
[2018-03-30] MEDS: Furosemide 20 MG/2 ML VIAL SLOW IVP SCH ×2 (06:49→15:19)
--- NOTE | 2018-03-30 07:55 | PRG ---
DATE OF SERVICE: 03/29/2018 SUBJECTIVE: Patient was seen and examined at bedside and overnight events noted. Patient denies any shortness of breath or chest pain or palpitation. No history of nausea or vomiting or diarrhea or f ever or chills or cramps. OBJECTIVE: GENERAL: This is a well-built male, in no apparent distress. VITAL SIGNS: Temperature 99, pulse 78, respirations 17, blood pressure 139/69. HEENT: Atraumatic, normocephalic, oral mucosa is moist. NECK: Supple. CARDIOVASCULAR: S1, S2 heard, rate and rhythm regular. RESPIRATORY: Clear to auscultation. GASTROINTESTINAL: Abdomen is soft. MUSCULOSKELETAL: No tenderness, no edema. DERMATOLOGIC: No skin rash. NEUROLOGIC: Alert and awake and oriented x3. No focal neurologic deficits. Moving all the extremit ies. PSYCHIATRIC: Mood and affect normal. LABORATORY DATA: Potassium is 3.4, BUN is 47, creatinine is 2.0. ASSESSMENT AND PLAN: 1. Acute kidney injury on chronic kidney disease, stage 4. Renal function is better. 2. Cardiorenal syndrome. 3. Fluid overload. Continue with Lasix. 4. Anemia, IV fluids. Monitor renal function closely. We will follow.
[2018-03-30] MEDS ORDERED: Epoetin (ESRD) 10,000 UNITS/ML VIAL SC SCH (09:00)
[2018-03-30] MEDS: Potassium Chloride 10 MEQ TAB PO SCH ×2 (09:11→17:21)
[2018-03-30] MEDS: hydrALAZINE 25 MG TAB PO SCH ×3 (09:11→20:24)
[2018-03-30] MEDS: Ascorbic Acid 500 mg Chewable Tablet PO SCH (09:12)
[2018-03-30] MEDS: Dronedarone HCl 400 MG TAB PO SCH ×2 (09:12→20:24)
[2018-03-30] MEDS: Docusate 100 MG CAP PO SCH ×2 (09:12→20:24)
[2018-03-30] MEDS: Rivaroxaban 15 MG TAB PO SCH (09:12)
[2018-03-30] MEDS: Carvedilol 3.125 MG TAB PO SCH ×2 (09:12→20:23)
[2018-03-30] MEDS: Ferrous Sulfate 325 MG TAB PO SCH ×2 (09:12→17:21)
--- NOTE | 2018-03-30 11:10 | PDOC.PN ---
- Subjective Encounter Start Date: 03/30/18 Encounter Start Time: 08:20 Subjective: no sob, feels better -: no chest pain or palp -: at bedside - Objective Resuscitation Status: Resuscitation Status DNR:Do Not Resuscitate MAR Reviewed: Yes Vital Signs & Weight: Vital Signs (12 hours) Temp Pulse Resp BP Pulse Ox 03/30/18 08:28 99.0 F 76 20 166/75 H 100 03/30/18 04:00 99.5 F 74 18 157/70 H 94 L Weight Weight 140 lb I&O: 03/29/18 03/30/18 03/31/18 06:59 06:59 06:59 Intake Total 1080 400 Output Total 2049 1900 Balance -970 -1500 Result Diagrams: 03/29/18 05:11 03/30/18 04:32 Phys Exam - Physical Examination HEENT: PERRLA, moist MMs Neck: no JVD, supple Respiratory: no wheezing, no rales Cardiovascular: RRR, no significant murmur Gastrointestinal: soft, non-tender, positive bowel sounds Musculoskeletal: no edema, pulses present Neurological: non-focal, moves all 4 limbs Psychiatric: A&O x 3 Dx/Plan (1) Acute on chronic diastolic CHF (congestive heart failure) Code(s): I50.33 - ACUTE ON CHRONIC DIASTOLIC (CONGESTIVE) HEART FAILURE Status : Acute Comment: ef of 50% with diastolic dysfunction (2) Acute kidney injury superimposed on CKD Code(s): N17.9 - ACUTE KIDNEY FAILURE, UNSPECIFIED; N18.9 - CHRONIC KIDNEY DISEASE, UNSPECIFIED Status: Acute (3) CAD (coronary artery disease) Code(s): I25.10 - ATHSCL HEART DISEASE OF [place] CORONARY ARTERY W/O ANG PCTRS Status: Chronic Qualifiers: Coronary Disease-Associated Artery/Lesion type: [place] artery [place] vs. transplanted heart: [place] heart Associated angina: without angina Qualified Code(s): I25.10 - Atherosclerotic heart disease of [place] coronary artery without angina pectoris (4) CKD (chronic kidney disease) stage 3, GFR 30-59 ml/min Status: Chronic Comment: (5) COPD (chronic obstructive pulmonary disease) Status: Chronic Qualifiers: COPD type: chronic bronchitis Chronic bronchitis type: unspecified Qualified Code(s): J42 - Unspecified chronic bronchitis (6) HLD (hyperlipidemia) Code(s): E78.5 - HYPERLIPIDEMIA, UNSPECIFIED Status: Chronic Qualifiers: Hyperlipidemia type: unspecified (7) HTN (hypertension) Code(s): I10 - ESSENTIAL (PRIMARY) HYPERTENSION Status: Chronic Qualifiers: Hypertension type: essential hypertension (8) PAD (peripheral artery disease) Code(s): I73.9 - PERIPHERAL VASCULAR DISEASE, UNSPECIFIED Status: Chronic (9) Moderate aortic stenosis Code(s): I35.0 - NONRHEUMATIC AORTIC (VALVE) STENOSIS Status: Chronic (10) Afib Code(s): I48.91 - UNSPECIFIED ATRIAL FIBRILLATION Status: Chronic Qualifiers: Atrial fibrillation type: chronic Qualified Code(s): I48.2 - Chronic atrial fibrillation - Plan gentle diuresis with ckd -: creatinine around 1.9 -: continue xarelto, asp, lipitor, coreg and multaq -: no tiffany/arb due to ckd -: to amb as tolerated * . Review of Systems - Medications/Allergies Allergies/Adverse Reactions: Allergies Allergy/AdvReac Type Severity Reaction Status Date / Time gabapentin Allergy Severe Swollen Verified 08/24/17 20:23 Lips lisinopril Allergy Mild Verified 08/24/17 20:23 Medications: Current Medications Acetaminophen (Tylenol) 650 mg PO Q4H PRN PRN Reason: Headache/Fever or Pain Hydrocodone Bitart/Acetaminophen ([place] 5/325) 1 tab PO Q4H PRN PRN Reason: Moderate Pain (4-6) Ascorbic Acid (Vitamin C) 500 mg PO DAILY [facility] Last Admin: 03/30/18 09:12 Dose: 500 mg Aspirin (Aspirin Chewable) 81 mg PO DAILY [facility] Last Admin: 03/30/18 09:12 Dose: 81 mg Atorvastatin Calcium (Lipitor) 20 mg PO HS [facility] Last Admin: 03/29/18 21:24 Dose: 20 mg Carvedilol (Coreg) 3.125 mg PO BID [facility] Last Admin: 03/30/18 09:12 Dose: 3.125 mg Diltiazem HCl (Cardizem Cd) 120 mg PO DAILY [facility] Last Admin: 03/30/18 09:12 Dose: 120 mg Docusate Sodium (Colace) 100 mg PO BID [facility] Last Admin: 03/30/18 09:12 Dose: Not Given Dronedarone (Multaq) 400 mg PO BID [facility] Last Admin: 03/30/18 09:12 Dose: 400 mg Epoetin Jenaro (Procrit) 10,000 units SC Q7D [facility] Last Admin: 03/30/18 09:13 Dose: 10,000 units Famotidine (Pepcid) 20 mg PO 2100 [facility] Last Admin: 03/29/18 21:24 Dose: 20 mg Ferrous Sulfate (Feosol) 325 mg PO BID-[facility] Last Admin: 03/30/18 09:12 Dose: 325 mg Furosemide (Lasix) 20 mg SLOW IVP 0600,1400 [facility] Last Admin: 03/30/18 06:49 Dose: 20 mg Hydralazine HCl (Apresoline) 100 mg PO TID [facility] Last Admin: 03/30/18 09:11 Dose: 100 mg Polyethylene Glycol (Miralax) 17 gm PO DAILY PRN PRN Reason: Constipation Potassium Chloride (Klor-Con 10) 10 meq PO BID-[facility] Last Admin: 03/30/18 09:11 Dose: 10 meq Rivaroxaban (Xarelto) 15 mg PO DAILY [facility] Last Admin: 03/30/18 09:12 Dose: 15 mg
--- NOTE | 2018-03-30 19:47 | PRG ---
DATE OF SERVICE: 03/30/2018 SUBJECTIVE: Patient was seen and examined at bedside and overnight events noted. Patient denies any shortness of breath or chest pain or palpitation. No history of nausea or vomiting or diarrhea or f ever or chills or cramps. OBJECTIVE: GENERAL: This is a well-built male in no apparent distress. VITAL SIGNS: Temperature 97.6, pulse 64, respiratory rate 20, blood pressure 157/74. HEENT: Atraumatic, normocephalic. Oral mucosa is moist. NECK: Supple. CARDIOVASCULAR: S1, S2 heard. Rate and rhythm regular. RESPIRATORY: Clear to auscultation. GASTROINTESTINAL: Abdomen is soft. MUSCULOSKELETAL: No tenderness. No edema. DERMATOLOGIC: No skin rash. NEUROLOGIC: Alert and awake and oriented x3. No focal neurologic deficits. Moving all the extremiti es. PSYCHIATRIC: Mood and affect normal. LABORATORY DATA: Potassium is 3.2, BUN 47, creatinine is 1.9. ASSESSMENT AND PLAN: 1. Acute kidney injury on chronic kidney disease. 2. Renal function is stable. 3. Cardiorenal syndrome. Continue Lasix. 4. Hypokalemia, replace, metabolic acidosis. 5. Anemia. Iron studies are low. Start iron pills and also we will give a dose of Epogen. We will follow.
[2018-03-30] MEDS: Atorvastatin Calcium 20 MG TAB PO SCH (20:24)
[2018-03-30] MEDS: Famotidine 20 MG TAB PO SCH (20:24)
--- NOTE | 2018-03-30 23:58 | PDOC.CTH ---
Cardiology Progress Note - Subjective Patient doing well. No significant complaints at this time. TOV 1410 - Objective Vital Signs Temp Pulse Resp BP BP BP Pulse Ox 03/30/18 20:23 100 F H 81 18 93 L 03/30/18 19:15 100 F H 81 18 158/72 H 92 L 03/30/18 15:20 98.5 F 79 18 191/92 H 96 03/30/18 15:19 74 191/82 H Weight 140 lb 03/29/18 03/30/18 03/31/18 06:59 06:59 06:59 Intake Total 1080 400 Output Total 2050 1900 2200 Balance -970 -1500 -2200 - Physical Examination General/Neuro: alert & oriented x3 Lungs: unlabored respirations Heart: RRR Abdomen: NT/ND Extremities: + edema B - Telemetry Telemetry Rhythm: SR - Labs Result Diagrams: 03/29/18 05:11 03/30/18 04:32 Troponin/CKMB Troponin I 0.018 ng/mL (< 0.028) 03/28/18 15:18 - Assessment/Plan 1. Acute on chronic diastolic CHF 2. G[place] on CKD 3. Anemia Continue diuresis per renal at this time. ECHO reviewed and EF 50-55%. Cr slightly down today. BP improved, but remains elevated. May need to titrate meds again.
[2018-03-31 04:40] LABS: Hemoglobin 8.2 g/dL (14.0-18.0); Platelet Count 202 thou/uL (130-400)
[2018-03-31 05:02] LABS: Anion Gap 14 mmol/L (10-20); BUN (Urea Nitrogen) 45 mg/dL (8.4-25.7); Calc. Creatinine Clearance 29 mL/min (70-130); Calcium 8.9 mg/dL (7.8-10.44); Carbon Dioxide 23 mmol/L (23-31); Chloride 105 mmol/L (98-107); Estimated GFR-MDRD 31; Glucose 91 mg/dL (83-110); Potassium 3.3 mmol/L (3.5-5.1); Sodium 139 mmol/L (136-145)
[2018-03-31] MEDS: Furosemide 20 MG/2 ML VIAL SLOW IVP SCH (05:50)
[2018-03-31] MEDS: Ascorbic Acid 500 mg Chewable Tablet PO SCH (09:20)
[2018-03-31] MEDS: Ferrous Sulfate 325 MG TAB PO SCH (09:20)
[2018-03-31] MEDS: hydrALAZINE 25 MG TAB PO SCH (09:21)
[2018-03-31] MEDS: Dronedarone HCl 400 MG TAB PO SCH (09:21)
[2018-03-31] MEDS: Potassium Chloride 10 MEQ TAB PO SCH (09:21)
[2018-03-31] MEDS: Rivaroxaban 15 MG TAB PO SCH (09:21)
[2018-03-31] MEDS: Carvedilol 3.125 MG TAB PO SCH (09:21)
[2018-03-31] MEDS: Docusate 100 MG CAP PO SCH (09:27)
--- NOTE | 2018-03-31 10:14 | RAD ---
CHEST TWO VIEWS: History: Dyspnea, fever. Comparison: 03-28-18 FINDINGS: Heart size is within normal limits. The CHF type changes have largely resolved. There are some residu al changes in the right base and there are small bilateral effusions present. IMPRESSION: Almost complete resolution of pulmonary edema change. There appears to be small bilateral effusions. Parenchymal change in the right base could represent atelectasis, less likely infiltrate. POS: [facility]
[2018-03-31 11:50] VITALS: TEMP 98.5
--- NOTE | 2018-03-31 12:02 | PDOC.PN ---
- Subjective Encounter Start Date: 03/31/18 Encounter Start Time: 09:00 Subjective: breathing good, no chest pain or palp -: family at bedside -: is amb and eating well - Objective Resuscitation Status: Resuscitation Status DNR:Do Not Resuscitate MAR Reviewed: Yes Vital Signs & Weight: Vital Signs (12 hours) Temp Pulse Resp BP BP Pulse Ox 03/31/18 11:44 98.5 F 73 16 157/73 H 95 03/31/18 09:21 69 03/31/18 09:15 98.4 F 69 16 141/63 H 100 03/31/18 04:00 99.1 F 74 18 158/72 H 98 Weight Weight 132 lb 14.4 oz I&O: 03/30/18 03/31/18 04/01/18 06:59 06:59 06:59 Intake Total 400 400 Output Total 1900 2900 Balance -1500 -2500 Result Diagrams: 03/31/18 04:00 03/31/18 04:00 Phys Exam - Physical Examination HEENT: PERRLA, moist MMs Neck: no JVD, supple Respiratory: no wheezing, no rales Cardiovascular: RRR, no significant murmur Gastrointestinal: soft, non-tender, positive bowel sounds Musculoskeletal: no edema, pulses present Neurological: non-focal, moves all 4 limbs Psychiatric: normal affect, A&O x 3 Dx/Plan (1) Acute on chronic diastolic CHF (congestive heart failure) Code(s): I50.33 - ACUTE ON CHRONIC DIASTOLIC (CONGESTIVE) HEART FAILURE Status : Acute Comment: ef of 50% with diastolic dysfunction (2) Acute kidney injury superimposed on CKD Code(s): N17.9 - ACUTE KIDNEY FAILURE, UNSPECIFIED; N18.9 - CHRONIC KIDNEY DISEASE, UNSPECIFIED Status: Resolved (3) CAD (coronary artery disease) Code(s): I25.10 - ATHSCL HEART DISEASE OF [place] CORONARY ARTERY W/O ANG PCTRS Status: Chronic Qualifiers: Coronary Disease-Associated Artery/Lesion type: [place] artery [place] vs. transplanted heart: [place] heart Associated angina: without angina Qualified Code(s): I25.10 - Atherosclerotic heart disease of [place] coronary artery without angina pectoris (4) CKD (chronic kidney disease) stage 3, GFR 30-59 ml/min Status: Chronic Comment: (5) COPD (chronic obstructive pulmonary disease) Status: Chronic Qualifiers: COPD type: chronic bronchitis Chronic bronchitis type: unspecified Qualified Code(s): J42 - Unspecified chronic bronchitis (6) HLD (hyperlipidemia) Code(s): E78.5 - HYPERLIPIDEMIA, UNSPECIFIED Status: Chronic Qualifiers: Hyperlipidemia type: unspecified (7) HTN (hypertension) Code(s): I10 - ESSENTIAL (PRIMARY) HYPERTENSION Status: Chronic Qualifiers: Hypertension type: essential hypertension (8) PAD (peripheral artery disease) Code(s): I73.9 - PERIPHERAL VASCULAR DISEASE, UNSPECIFIED Status: Chronic (9) Moderate aortic stenosis Code(s): I35.0 - NONRHEUMATIC AORTIC (VALVE) STENOSIS Status: Chronic (10) Afib Code(s): I48.91 - UNSPECIFIED ATRIAL FIBRILLATION Status: Chronic Qualifiers: Atrial fibrillation type: chronic Qualified Code(s): I48.2 - Chronic atrial fibrillation - Plan may dc home if ok with cardio -: cxr reviewed, no infiltrate, congestion is cleared up -: d/w pt and family at bedside -: to continue hydralazine, cardizem cd, multaq, xarelto and coreg * . Review of Systems - Medications/Allergies Allergies/Adverse Reactions: Allergies Allergy/AdvReac Type Severity Reaction Status Date / Time gabapentin Allergy Severe Swollen Verified 08/24/17 20:23 Lips lisinopril Allergy Mild Verified 08/24/17 20:23 Medications: Current Medications Acetaminophen (Tylenol) 650 mg PO Q4H PRN PRN Reason: Headache/Fever or Pain Hydrocodone Bitart/Acetaminophen ([place] 5/325) 1 tab PO Q4H PRN PRN Reason: Moderate Pain (4-6) Ascorbic Acid (Vitamin C) 500 mg PO DAILY [facility] Last Admin: 03/31/18 09:20 Dose: 500 mg Aspirin (Aspirin Chewable) 81 mg PO DAILY [facility] Last Admin: 03/31/18 09:27 Dose: Not Given Atorvastatin Calcium (Lipitor) 20 mg PO HS [facility] Last Admin: 03/30/18 20:24 Dose: 20 mg Carvedilol (Coreg) 3.125 mg PO BID [facility] Last Admin: 03/31/18 09:21 Dose: 3.125 mg Diltiazem HCl (Cardizem Cd) 120 mg PO DAILY [facility] Last Admin: 03/31/18 09:21 Dose: 120 mg Docusate Sodium (Colace) 100 mg PO BID [facility] Last Admin: 03/31/18 09:27 Dose: Not Given Dronedarone (Multaq) 400 mg PO BID [facility] Last Admin: 03/31/18 09:21 Dose: 400 mg Epoetin Jenaro (Procrit) 10,000 units SC Q7D [facility] Last Admin: 03/30/18 09:13 Dose: 10,000 units Famotidine (Pepcid) 20 mg PO 2100 [facility] Last Admin: 03/30/18 20:24 Dose: 20 mg Ferrous Sulfate (Feosol) 325 mg PO BID-[facility] Last Admin: 03/31/18 09:20 Dose: 325 mg Furosemide (Lasix) 20 mg SLOW IVP 0600,1400 [facility] Last Admin: 03/31/18 05:50 Dose: 20 mg Hydralazine HCl (Apresoline) 100 mg PO TID [facility] Last Admin: 03/31/18 09:21 Dose: 100 mg Polyethylene Glycol (Miralax) 17 gm PO DAILY PRN PRN Reason: Constipation Potassium Chloride (Klor-Con 10) 10 meq PO BID-[facility] Last Admin: 03/31/18 09:21 Dose: 10 meq Rivaroxaban (Xarelto) 15 mg PO DAILY [facility] Last Admin: 03/31/18 09:21 Dose: 15 mg
[2018-03-31 13:52] VITALS: BP 187/74
--- NOTE | 2018-03-31 17:38 | PRG ---
DATE OF SERVICE: 03/31/2018 SUBJECTIVE: Patient was seen and examined at bedside and overnight events noted. Patient denies any shortness of breath or chest pain or palpitation. No history of nausea or vomiting or diarrhea or f ever or chills or cramps. OBJECTIVE: GENERAL: This is a well-built male in no apparent distress. VITAL SIGNS: Temperature 98.5, pulse 73, respiratory rate 16, blood pressure 157/73. HEENT: Atraumatic, normocephalic. Oral mucosa is moist. NECK: Supple. CARDIOVASCULAR: S1, S2 heard. Rate and rhythm regular. RESPIRATORY: Clear to auscultation. GASTROINTESTINAL: Abdomen is soft. MUSCULOSKELETAL: No tenderness. No edema. DERMATOLOGIC: No skin rash. NEUROLOGIC: Alert and awake and oriented x3. No focal neurologic deficits. Moving all the extremiti es. PSYCHIATRIC: Mood and affect normal. LABORATORY DATA: Potassium is 3.3, BUN 45, creatinine is 2.09. ASSESSMENT AND PLAN: 1. Acute kidney injury on chronic kidney disease stage 3, stable renal function. 2. Cardiorenal syndrome, on Lasix. 3. Hypokalemia, replace. 4. Anemia. Monitor hemoglobin. The patient tolerating well. Okay to send him on Lasix 40 p.o. b.i.d. and follow up within the clini c in 2 weeks.
== END 2018-03-31 13:57 | disposition home or self-care (01) | DRG 291 ==
LOC: ERS 12:03 → 2NO 13:17
PROVIDERS: ADMIT Family Medicine; ATTEND Family Medicine
DX: I13.0 Hypertensive heart and chronic kidney disease with heart failure and stage 1 through stage 4 chronic kidney disease, or unspecified chronic kidney disease (principal); I50.21 Acute systolic (congestive) heart failure; J96.01 Acute respiratory failure with hypoxia; N18.4 Chronic kidney disease, stage 4 (severe); N17.9 Acute kidney failure, unspecified; Z95.5 Presence of coronary angioplasty implant and graft; J44.9 Chronic obstructive pulmonary disease, unspecified; I48.91 Unspecified atrial fibrillation; Z66 Do not resuscitate; E78.5 Hyperlipidemia, unspecified; I73.9 Peripheral vascular disease, unspecified; Z79.899 Other long term (current) drug therapy; Z79.82 Long term (current) use of aspirin; Z79.01 Long term (current) use of anticoagulants; Z88.8 Allergy status to other drugs, medicaments and biological substances; D64.9 Anemia, unspecified; I25.10 Atherosclerotic heart disease of native coronary artery without angina pectoris; I35.0 Nonrheumatic aortic (valve) stenosis
CPT/HCPCS: 36415; 71046; 80048; 82728; 83540; 83550; 83880; 84550; 85014; 85018; 85025; 85049; 93005; 93306; 93798; 94760; G8978-GP-CK; G8979-GP-CK; G8980-GP-CK; G8987-GO-CI; G8988-GO-CI; G8989-GO-CI; J1940; Q4081

== ENCOUNTER 2018-04-15 14:42 | Inpatient (IN) | payer MEDICARE, OTHER ==
[2018-04-15 15:29] LABS: Prothrombin Time 40.6 SEC (12.0-14.7)
[2018-04-15 15:30] LABS: #Eosinphils 0.2 thou/uL (0.0-0.7); #Lymphocytes 1.5 thou/uL (1.20-3.40); #Monocytes 0.9 thou/uL (0.11-0.59); #Neutrophils 7.6 thou/uL (1.40-6.50); %Basophils 0.4 % (0.0-1.0); %Eosinophils 2.2 % (0.0-10.0); %Lymphocytes 14.6 % (21.0-51.0); %Neutrophils 73.8 % (42.0-75.0); Hemoglobin 6.8 g/dL (14.0-18.0); Mean Corpuscular HGB CONC 30.3 g/dL (32.0-36.0); Mean Corpuscular Hemoglobin 23.5 pg (27.0-31.0); Mean Corpuscular Volume 77.8 fL (78.0-98.0); Mean Platelet Volume 7.8 fL (7.4-10.4); Platelet Count 362 thou/uL (130-400); RBC Distribution Width 16.1 % (11.5-14.5); White Blood Cell (WBC) Count 10.3 thou/uL (4.8-10.8)
[2018-04-15 15:40] LABS: INR-International Normal Ratio 4.2
[2018-04-15 15:44] LABS: ALT (SGPT) 14 U/L (8-55); AST (SGOT) 17 U/L (5-34); Albumin 3.7 g/dL (3.4-4.8); Alkaline Phosphatase 83 U/L (40-150); Anion Gap 17 mmol/L (10-20); BUN (Urea Nitrogen) 71 mg/dL (8.4-25.7); Bilirubin, Total 0.6 mg/dL (0.2-1.2); Calc. Creatinine Clearance 0 mL/min (70-130); Calcium 9.3 mg/dL (7.8-10.44); Carbon Dioxide 26 mmol/L (23-31); Chloride 97 mmol/L (98-107); Estimated GFR-MDRD 23; Globulin 3.9 g/dL (2.4-3.5); Glucose 156 mg/dL (83-110); Protein, Total 7.6 g/dL (5.8-8.1); Sodium 137 mmol/L (136-145)
[2018-04-15 15:47] LABS: Potassium 2.9 mmol/L (3.5-5.1)
[2018-04-15 18:07] LABS: Bilirubin Negative (Negative); Blood, Urine Negative (Negative); Clarity CLEAR (Clear); Glucose, Urine (Dipstick) Negative (Negative); Leukocyte Negative (Negative); Nitrite Negative (Negative); Protein, Urine (Dipstick) Negative (Neg-Trace); Specific Gravity, Urine 1.012 (1.002-1.036)
[2018-04-15] MEDS ORDERED: Ondansetron ODT 4 MG TAB SL PRN (19:52)
[2018-04-15] MEDS ORDERED: Ondansetron HCl/PF 4 MG/2 ML Vial IVP PRN ×2 (19:52→20:17)
[2018-04-15] MEDS ORDERED: Acetaminophen 325 MG TAB PO PRN (19:52)
[2018-04-15] MEDS ORDERED: Acetaminophen 500 MG TAB PO PRN (20:17)
[2018-04-15] MEDS ORDERED: cloNIDine 0.1 MG TAB PO PRN (20:17)
[2018-04-15] MEDS ORDERED: Ondansetron ODT 4 MG TAB PO PRN (20:17)
[2018-04-15] MEDS ORDERED: Potassium Chloride 20 MEQ TAB PO SCH (20:30)
[2018-04-15] MEDS: Famotidine 20 MG TAB PO SCH (20:54)
[2018-04-15] MEDS ORDERED: Pantoprazole 40 MG VIAL IVP SCH (21:00)
[2018-04-15] MEDS: hydrALAZINE 20 MG/ML VIAL SLOW IVP PRN (21:59)
[2018-04-16 00:46] VITALS: BMI 20.1
--- NOTE | 2018-04-16 02:48 | HP ---
DATE OF ADMISSION: 04/15/2018 PRIMARY CARE PROVIDER: Osmani Gage M.D. PRIMARY ATHLETIC DIRECTOR: Addie Chacon M.D. CHIEF COMPLAINT: General weakness and abnormal labs. HISTORY OF PRESENT ILLNESS: This is a 72-year-old male who presents to [facility] after transfer from his primary wrap checker office after monitoring of his hemoglobin showed decreasing trend. The patient has noticed generalized weakness, occasional lightheadedness as sociated with decreasing hemoglobin. The patient also states he has noticed some dark sticky stools, but no haim bright red blood in his bowel movements. The patient denies any nausea, vomiting or he matemesis. The patient does state he takes Eliquis over the last year due to atrial fibrillation. T he patient states he had a remote history of gastric ulcer while in the service taking an ov [id number] prep for relief. The patient denies any prior history of GI bleed prior endoscopy or receiving blood products. The patient denied any specific associated vertigo; however, did admit to some dizziness that was transient. No nausea, vomiting, or abdominal pain. No specific change to hi s appetite. The patient was notably admitted to [facility] in 03/2018 for acu te on chronic diastolic heart failure exacerbation. The patient also admits to significant history o f chronic kidney disease stage 4 requiring over 100 days of hemodialysis in the last several months. The patient states he came off the hemodialysis at the direction of his wrap checker and has been mo nitored on an outpatient basis. In the emergency room, the patient underwent general evaluation incl uding stool Hemoccult which was negative x1. Screening CBC showed a hemoglobin of 6.8, previously no soto 8.2 on 03/31/2018. The patient was typed and crossed for 2 units of packed red blood cells and i s currently receiving 1 unit at the time of this evaluation. PAST MEDICAL HISTORY: 1. Chronic kidney disease stage 4-5. 2. Transient hemodialysis, none currently. 3. Chronic microcytic anemia with iron replacement. 4. Chronic diastolic congestive heart failure with preserved ejection fraction 50%-55%. 5. Hypertension. 6. Carotid artery disease. 7. Peripheral vascular disease. 8. Chronic atrial fibrillation. 9. Moderate aortic stenosis. PAST SURGICAL HISTORY: 1. Status post stent placement to the left lower extremity. 2. Status post bilateral carotid endarterectomies. 3. Status post AV fistula placement. CURRENT MEDICATIONS: Based on recent discharge summary on 03/31/2018. 1. Aspirin 81 mg 1 tab p.o. daily. 2. Lipitor 20 mg p.o. at bedtime. 3. Coreg 3.125 mg p.o. b.i.d. 4. Vitamin B12 of 500 mcg p.o. daily. 5. Cardizem-CD 120 mg p.o. daily. 6. Multaq 400 mg p.o. b.i.d. 7. Ferrous sulfate 325 mg p.o. b.i.d. 8. Lasix 40 mg p.o. daily. 9. Hydralazine 100 mg p.o. t.i.d. 10. MiraLax 17 grams as needed. 11. Xarelto 15 mg p.o. daily. 12. K-Dur 10 mEq p.o. daily. ALLERGIES: GABAPENTIN and LISINOPRIL. FAMILY HISTORY: No inheritable diseases per patient report. SOCIAL HISTORY: Denies tobacco, alcohol, or illicit drug use. Remote history of marijuana. 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 . Functional of all activities of daily livin g. REVIEW OF SYSTEMS: The following complete review of systems was negative, unless otherwise mentioned in the HPI or below: Constitutional: Weight loss or gain, ability to conduct usual activities. Sk in: Rash, itching. Eyes: Double vision, pain. ENT/Mouth: Nose bleeding, neck stiffness, pain, ten derness. Cardiovascular: Palpitations, dyspnea on exertion, orthopnea. Respiratory: Shortness of breath, wheezing, cough, hemoptysis, fever or night sweats. Gastrointestinal: Poor appetite, abdomi nal pain, heartburn, nausea, vomiting, constipation, or diarrhea. Genitourinary: Urgency, frequency , dysuria, nocturia. Musculoskeletal: Pain, swelling. Neurologic/Psychiatric: Anxiety, depression . Allergy/Immunologic: Skin rash, bleeding tendency. Otherwise negative except as stated per HPI. PHYSICAL EXAMINATION: VITAL SIGNS: Currently, blood pressure 149/53, pulse 67, respiratory rate 20, temperature 98.2 degre es Fahrenheit, O2 saturation 100% on room air. GENERAL APPEARANCE: This is a 72-year-old male, alert and oriented x3, pleasant, responsive , in no acute distress. HEENT: Pupils are equal, round, and reactive to light and accommodation. Extraocular muscles are in tact. No scleral icterus, no conjunctival injection. Nares patent. OP is clear. Edentulous on the upper teeth. NECK: Supple, no cervical adenopathy, no thyromegaly, no carotid bruits, no JVD appreciated. Cervic al spine full active and passive range of motion. No meningeal signs appreciated. CHEST: Lungs are clear to auscultation bilaterally. CARDIOVASCULAR: S1, S2 with a 2-3/6 systolic ejection murmur loudest in the right upper sternal bord er with radiation into bilateral carotid region. ABDOMEN: Rounded, soft, nontender, nondistended. Bowel sounds are positive in all four quadrants. No hepatosplenomegaly, no abdominal bruits, no rebound or guarding appreciated. EXTREMITIES: Warm and dry with fair turgor. No clubbing, cyanosis or asymmetric edema appreciated. Pulses palpable distally at the dorsalis pedis, posterior tibial, and popliteal arteries bilaterally . Capillary refill less than 2 seconds. NEUROLOGIC: Cranial nerves II-XII are grossly intact. 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 PERTINENT LABORATORY AND X-RAY FINDINGS: Sodium 137, potassium 2.9, chloride 97, CO2 of 26, BUN 71, creatinine 2.69, estimated GFR of 23, glucose 156, calcium 9.3. LFTs within normal limits. CBC show ed a white blood cell count 10.3, hemoglobin 6.8, previously noted 6.7 on 04/14/2018 and 8.2 on 03/31. MCV 78, platelet count 362 with normal differential. PT 40.6, INR 4.2, PTT 56. Urinalysis n egative. Stool Hemoccult negative x1 on 04/15/2018. ASSESSMENT AND PLAN: 1. Symptomatic anemia. The patient will be observed on the medical floor. Concern for gastrointest inal source of bleeding given the patient's presentation. Initial stool Hemoccult negative x1. We will repeat stool Hemoccult. Serial hemoglobin shows overall decreasing trend after review of electr onic medical record dating back to 2016. Concern for GI source also given patient's chronic use of X arelto. Type and cross for 2 units of packed red blood cells and transfuse when available. Repeat C BC in the a.m. Consult GI service for evaluation and consideration of endoscopy. 2. Acute on chronic microcytic anemia. See #1 above. Continue Feosol 325 mg b.i.d. 3. Hypokalemia. We will initiate potassium chloride 40 mEq x1 dose now followed b.i.d. Repeat pota ssium level in the a.m. 4. Chronic kidney disease stage 4. Avoid nephrotoxic agents and contrast media. Serial creatinine monitoring. No evidence to suggest acute volume overload. 5. Chronic anticoagulation with Xarelto. Hold Xarelto given #1. 6. Chronic atrial fibrillation. Continue Multaq 400 mg b.i.d. Continue diltiazem 120 mg p.o. daily . 7. Prophylaxis. Sequential compression devices while in bed. Pepcid 20 mg p.o. b.i.d. 8. Code status is DO NOT RESUSCITATE, confirmed with the patient. Surrogate medical decision maker is patient's spouse.
[2018-04-16 05:13] LABS: Anion Gap 12 mmol/L (10-20); BUN (Urea Nitrogen) 63 mg/dL (8.4-25.7); Calc. Creatinine Clearance 24 mL/min (70-130); Calcium 8.8 mg/dL (7.8-10.44); Carbon Dioxide 27 mmol/L (23-31); Chloride 102 mmol/L (98-107); Estimated GFR-MDRD 30; Glucose 83 mg/dL (83-110); Potassium 3.3 mmol/L (3.5-5.1); Sodium 138 mmol/L (136-145)
[2018-04-16] MEDS: hydrALAZINE 20 MG/ML VIAL SLOW IVP PRN (05:14)
[2018-04-16 05:39] LABS: Band 4 % (5-11); Eosinophils 4 % (0-10); Hemoglobin 8.6 g/dL (14.0-18.0); Lymphocytes 15 % (21-51); MDiff Complete? YES; Mean Corpuscular Hemoglobin 26.6 pg (27.0-31.0); Mean Corpuscular Volume 82.9 fL (78.0-98.0); Mean Platelet Volume 7.9 fL (7.4-10.4); Monocytes 8 % (0-10); Neutrophil 69 % (42-75); Platelet Count 237 thou/uL (130-400); RBC Distribution Width 16.7 % (11.5-14.5); Red Blood Cell (RBC) Count 3.24 mill/uL (4.70-6.10); White Blood Cell (WBC) Count 7.2 thou/uL (4.8-10.8)
[2018-04-16] MEDS: Potassium Chloride 20 MEQ TAB PO SCH ×2 (07:49→16:40)
[2018-04-16] MEDS ORDERED: Epoetin (ESRD) 10,000 UNITS/ML VIAL SC SCH (11:00)
--- NOTE | 2018-04-16 13:04 | CON ---
DATE OF CONSULTATION: 04/16/2018 GASTROENTEROLOGY CONSULTATION SUBJECTIVE: Mr. Goins was admitted after he reports significant weakness over the last week and was found to have severe anemia. He has had chronic renal failure and was on dialysis from August to ; however, he has been off dialysis since then. He has been on Xarelto as well. He has had n o abdominal pain, no nausea or vomiting. Reports some subjective weight loss but is unable to quanti fy. He has had no diarrhea, constipation or blood in the stool. GI was consulted to further evaluat e microcytic anemia. He had iron studies back in March, which showed low iron with a normal TIBC and ferritin which was in the normal range, but less than 100. PAST MEDICAL HISTORY: Significant for chronic kidney disease. He has been off dialysis for the last few months, history of congestive heart failure, diastolic, hypertension, peripheral vascular diseas e, atrial fibrillation, aortic stenosis, moderate. PAST SURGICAL HISTORY: Vascular stent, lower extremity AV fistula, carotid endarterectomy. FAMILY HISTORY: Negative for GI malignancies. SOCIAL HISTORY: No alcohol, tobacco or drugs. ALLERGIES: GABAPENTIN and LISINOPRIL. MEDICATIONS PRIOR TO ADMISSION: Aspirin, Xarelto 15 mg daily, Lipitor, Coreg, vitamin B12, Cardizem, Multaq, iron, Lasix, hydralazine, potassium, MiraLax. REVIEW OF SYSTEMS: Negative x10 systems reviewed except as stated in history of present illness. PHYSICAL EXAMINATION: VITAL SIGNS: Temperature 98.0, pulse 64, blood pressure 184/75. GENERAL: He is in no acute distress, alert and oriented x3. EYES: Have no scleral icterus. Oropharynx is clear without lesions. NECK: No cervical or supraclavicular lymphadenopathy. LUNGS: Clear to auscultation bilaterally. HEART: Regular rate and rhythm without murmur. ABDOMEN: Soft, nontender, nondistended. Bowel sounds are present. EXTREMITIES: No lower extremity edema. LABORATORY DATA: White blood cell count 7.3, hemoglobin was 6.8 on presentation. He received 2 unit s transfusion and hemoglobin today is 8.6, platelets 237. INR is 4.2 yesterday afternoon, creatinine 2.16, albumin 3.7. IMPRESSION: 1. Chronic microcytic anemia with low iron on chronic anticoagulation, consistent with iron deficien cy anemia. There is also likely a significant component of anemia of chronic renal disease as well. He does not have overt bleeding at this point. Stool occult blood was negative. 2. Atrial fibrillation and diastolic heart failure. He is on anticoagulation with Xarelto and is li jenny toxic with that related to his chronic renal disease. His INR was 4.2. 3. Chronic kidney disease. He is being started on epoetin. 4. Moderate aortic stenosis. RECOMMENDATIONS: Plan EGD and colonoscopy. We will anticipate this to be done on Thursday. His last dose of Xarelto was yesterday morning, morning and may take longer for the Xarelto to clear given his renal insufficiency.
--- NOTE | 2018-04-16 15:39 | PDOC.PN ---
- Subjective Encounter Start Date: 04/16/18 Encounter Start Time: 15:00 Subjective: f/u for acute/chronic anemia and suspected GI blood loss. s/p 2u PRBC's -: and feeling good today. Plan for endoscopy in 48h due to Xarelto. - Objective MAR Reviewed: Yes Result Diagrams: 04/16/18 04:13 04/16/18 04:13 Additional Labs: Laboratory Tests 04/15/18 04/15/18 15:10 15:10 Hgb 6.8 L MCV 77.8 L Potassium 2.9 L* Creatinine 2.69 H Phys Exam - Physical Examination Constitutional: NAD HEENT: PERRLA, sclera anicteric, oral pharynx no lesions Neck: no nodes, no JVD, supple, full ROM Respiratory: no wheezing, no rales, no rhonchi, clear to auscultation bilateral II/ RAKAN in RUSB S1, S2 Cardiovascular: RRR, no rub, gallop Gastrointestinal: soft, non-tender, no distention, positive bowel sounds Musculoskeletal: no edema, pulses present Neurological: non-focal, normal sensation, moves all 4 limbs Psychiatric: normal affect, A&O x 3 Skin: no rash, normal turgor, cap refill <2 seconds Dx/Plan (1) Symptomatic anemia Code(s): D64.9 - ANEMIA, UNSPECIFIED Status: Acute Comment: acute/chronic microcytic anemia, s/p 2u PRBC's, serial H/H, plan for endoscopy in 48h (2) Acute on chronic anemia Code(s): D64.9 - ANEMIA, UNSPECIFIED Status: Acute Comment: Hold Xarelto and NSAIDs, see #1 above (3) CKD (chronic kidney disease), stage IV Code(s): N18.4 - CHRONIC KIDNEY DISEASE, STAGE 4 (SEVERE) Status: Chronic Comment: Stable currently, avoid nephrotoxic meds and contrast media (4) Hypokalemia Code(s): E87.6 - HYPOKALEMIA Status: Acute Comment: Improved with KCL supplementation, serial K+ monitoring (5) Chronic anticoagulation Code(s): Z79.01 - RESIDENTIAL (CURRENT) USE OF ANTICOAGULANTS Status: Chronic Comment: Hold Xarelto pending endoscopy - Plan social media marketing specialist, out of bed/ambulate, DVT proph w/SCDs Stable currently -: Continue Pepcid 20mg BID -: Hold Xarelto and NSAIDs -: Clear liquids -: Bowel prep in 24h * AM lab: BMP, CBC
--- NOTE | 2018-04-16 18:15 | PRG ---
DATE OF SERVICE: 04/16/2018 SUBJECTIVE: This is a 72-year-old gentleman being seen for acute kidney injury. The patient denies any nausea, vomiting or chest pain. PHYSICAL EXAMINATION: GENERAL: The patient is awake and alert. VITAL SIGNS: Afebrile, pulse 75, breathing at 16, blood pressure was 171/91. GENERAL APPEARANCE AND MENTAL STATUS: Fair. HEAD/NECK: Normocephalic. Atraumatic. EYES: EOMI. No deformity. EARS: Clear. No ulcers. NOSE: Intact. No lesions. MOUTH: Clear. No discharge. THROAT: Clear. No exudate. LUNGS: Clear. No crackles. CARDIAC: S1, S2. No rub. ABDOMEN: Benign. BS+. GENITALIA/RECTUM: Howard absent. BACK/EXTREMITIES: Edema 0+ Ulcer. NEUROLOGICAL: Alert and motor intact. SKIN: Rash- Bruise-. LYMPHATICS: Edema- Ulcer. LABORATORY DATA: Labs show potassium 3.3, creatinine 2.1. ASSESSMENT AND RECOMMENDATIONS: 1. Acute kidney injury with chronic kidney disease, stage 3, improved. 2. Hypertension, stable. 3. Anemia, stable. 4. Medications based on glomerular filtration rate are appropriate. No indication for dialysis moreno garcia
[2018-04-16] MEDS: Famotidine 20 MG TAB PO SCH (20:28)
--- NOTE | 2018-04-17 01:21 | CON ---
DATE OF CONSULTATION: 04/16/2018 REASON FOR CONSULTATION: Elevated creatinine. HISTORY OF PRESENT ILLNESS: This is a very pleasant 72-year-old gentleman who presented to the [facility] with generalized weakness and elevated creatinine. The patient denied any headache, numbness, ti ngling or weakness. The patient denied taking any nephrotoxic medications. The patient's creatinine has increased to 2.69, prior baseline creatinine was 1.9-2. PAST MEDICAL HISTORY: Significant for stage 4 chronic kidney disease with a history of acute renal f ailure requiring dialysis, history of anemia, diastolic heart failure, coronary artery disease, perip heral vascular disease, atrial fibrillation, moderate aortic stenosis, history of stent in the lower extremities, AV fistula, tunneled dialysis catheter. HOME MEDICATIONS: List reviewed. HOSPITAL MEDICATIONS: List reviewed. ALLERGIES: Reviewed. REVIEW OF SYSTEMS: Fifteen-point review of systems was performed and was negative except for the pos itives noted above. General: Weakness. Head: Headache. Neck: No swelling or lumps. Nose: No e pistaxis or discharge. Eyes: No diplopia or pain. Respiratory: Dyspnea. Cardiovascular: Chest p ain. Gastrointestinal: Nausea. /TRACK LABORER: Hematuria. Musculoskeletal: No joint pain. Neuropsychia tric systems: No suicidal ideation. No ideation. Skin: Denies any rash or ulcer. Constitutional: No fever or chills. PHYSICAL EXAMINATION: GENERAL: The patient is awake, alert. VITAL SIGNS: Afebrile, pulse 67, breathing at 16, blood pressure 149/53. OBJECTIVE: See above. Awake, alert, in no acute distress. GENERAL APPEARANCE AND MENTAL STATUS: Fair. HEAD/NECK: Normocephalic. Atraumatic. EYES: EOMI. No deformity. EARS: Clear. No ulcers. NOSE: Intact. No lesions. MOUTH: Clear. No discharge. THROAT: Clear. No exudate. LUNGS: Clear. No crackles. CARDIAC: S1, S2. No rub. ABDOMEN: Benign. BS+. GENITALIA/RECTUM: Howard absent. BACK/EXTREMITIES: Edema 0+ Ulcer-. NEUROLOGICAL: Alert and motor intact. SKIN: Rash- Bruise-. LYMPHATICS: Edema- Ulcer-. LABORATORY DATA: Creatinine 2.8. ASSESSMENT AND RECOMMENDATIONS: 1. Acute kidney injury with chronic kidney disease most likely decreased effective arterial blood vo lume. 2. Anemia, recommend transfusion. 3. Hypertension, stable. 4. Hypokalemia. Recommend potassium replacement. No urgent indication for dialysis at this time.
[2018-04-17 05:21] LABS: Anion Gap 10 mmol/L (10-20); BUN (Urea Nitrogen) 43 mg/dL (8.4-25.7); Calc. Creatinine Clearance 34 mL/min (70-130); Carbon Dioxide 27 mmol/L (23-31); Chloride 106 mmol/L (98-107); Estimated GFR-MDRD 45; Glucose 81 mg/dL (83-110); Potassium 4.1 mmol/L (3.5-5.1); Sodium 139 mmol/L (136-145)
[2018-04-17 06:26] LABS: Band 3 % (5-11); Eosinophils 3 % (0-10); Hemoglobin 8.8 g/dL (14.0-18.0); Lymphocytes 19 % (21-51); MDiff Complete? YES; Mean Corpuscular HGB CONC 30.5 g/dL (32.0-36.0); Mean Corpuscular Hemoglobin 25.3 pg (27.0-31.0); Mean Corpuscular Volume 82.8 fL (78.0-98.0); Mean Platelet Volume 7.5 fL (7.4-10.4); Monocytes 9 % (0-10); Neutrophil 64 % (42-75); Platelet Count 245 thou/uL (130-400); Red Blood Cell (RBC) Count 3.47 mill/uL (4.70-6.10); White Blood Cell (WBC) Count 6.2 thou/uL (4.8-10.8)
[2018-04-17] MEDS: Potassium Chloride 20 MEQ TAB PO SCH ×2 (07:53→16:31)
--- NOTE | 2018-04-17 12:22 | PRG ---
DATE OF SERVICE: 04/17/2018 SUBJECTIVE: A 72-year-old gentleman being seen for acute kidney injury. Denies any nausea, vomiting or chest pain. PHYSICAL EXAMINATION: GENERAL: The patient is awake and alert. VITAL SIGNS: Afebrile, pulse 65, breathing 16, blood pressure 154/72. HEAD/NECK: Normocephalic. Atraumatic. EYES: EOMI. No deformity. EARS: Clear. No ulcers. NOSE: Intact. No lesions. MOUTH: Clear. No discharge. THROAT: Clear. No exudate. LUNGS: Clear. No crackles. CARDIAC: S1, S2. No rub. ABDOMEN: Benign. BS+. GENITALIA/RECTUM: Howard absent. BACK/EXTREMITIES: Edema 0+ Ulcer- NEUROLOGICAL: Alert and motor intact. SKIN: Rash- Bruise- LYMPHATICS: Edema- Ulcer- LABORATORY DATA: Show creatinine 1.5. ASSESSMENT AND PLAN: 1. Acute kidney injury, improved. 2. Hypertension. I would recommend starting home medication. 3. Anemia, stable. 4. Medications based on glomerular filtration rate are appropriate. No indication for dialysis at t his time.
--- NOTE | 2018-04-17 13:05 | PDOC.PN ---
- Subjective Encounter Start Date: 04/17/18 Encounter Start Time: 13:00 Subjective: f/u for acute/chronic symptomatic anemia of suspected GI loss. -: Feels good today. No noted blood in stool. Bowel prep planned this pm -: with endoscopy in am - Objective MAR Reviewed: Yes Vital Signs & Weight: Vital Signs (12 hours) Temp Pulse Resp BP BP Pulse Ox 04/17/18 11:22 98.4 F 65 18 154/72 H 100 04/17/18 08:00 97.8 F 67 18 191/72 H 100 04/17/18 07:53 191/72 H 04/17/18 04:00 98.1 F 63 16 173/70 H 100 Weight Weight 120 lb 2.431 oz Result Diagrams: 04/17/18 04:17 04/17/18 04:17 Additional Labs: Laboratory Tests 04/15/18 04/15/18 04/16/18 15:10 15:10 04:13 Hgb 6.8 L MCV 77.8 L Potassium 2.9 L* 3.3 L Creatinine 2.69 H 2.16 H 04/16/18 04:13 Hgb 8.6 L MCV Potassium Creatinine Phys Exam - Physical Examination Constitutional: NAD HEENT: PERRLA, sclera anicteric, oral pharynx no lesions Neck: no nodes, no JVD, supple, full ROM Respiratory: no wheezing, no rales, no rhonchi, clear to auscultation bilateral II/ RAAKN in RUSB S1, S2 Cardiovascular: RRR, no rub, gallop Gastrointestinal: soft, non-tender, no distention, positive bowel sounds Musculoskeletal: no edema, pulses present Neurological: non-focal, normal sensation, moves all 4 limbs Psychiatric: normal affect, A&O x 3 Skin: no rash, normal turgor, cap refill <2 seconds Dx/Plan (1) Symptomatic anemia Code(s): D64.9 - ANEMIA, UNSPECIFIED Status: Acute Comment: acute/chronic microcytic anemia, s/p 2u PRBC's, serial H/H, plan for endoscopy in am (2) Acute on chronic anemia Code(s): D64.9 - ANEMIA, UNSPECIFIED Status: Acute Comment: Hold Xarelto and NSAIDs, see #1 above, H/H stable currently (3) CKD (chronic kidney disease), stage IV Code(s): N18.4 - CHRONIC KIDNEY DISEASE, STAGE 4 (SEVERE) Status: Chronic Comment: Stable currently, avoid nephrotoxic meds and contrast media (4) Hypokalemia Code(s): E87.6 - HYPOKALEMIA Status: Acute Comment: Improved with KCL supplementation, serial K+ monitoring, resolved (5) Chronic anticoagulation Code(s): Z79.01 - SURGICAL COORDINATOR (CURRENT) USE OF ANTICOAGULANTS Status: Chronic Comment: Hold Xarelto pending endoscopy (6) HTN (hypertension) Code(s): I10 - ESSENTIAL (PRIMARY) HYPERTENSION Status: Chronic Qualifiers: Hypertension type: essential hypertension Comment: Resume Carvedilol and Diltiazem, serial BP monitoring - Plan out of bed/ambulate, DVT proph w/SCDs Stable overall -: Restart Coreg and Diltiazem for BP mgmt -: Hold Xarelto -: EPO sc q7days -: AM lab: H/H * Golytely bowel prep pm * Endoscopy in am
--- NOTE | 2018-04-17 13:14 | PRG ---
DATE OF SERVICE: 04/17/2018 SUBJECTIVE: Mr. Goins has no acute complaints. No abdominal pain. He has had no bowel movement tod ay. OBJECTIVE: VITAL SIGNS: Temperature 98.4, pulse 65, blood pressure 154/72. GENERAL: He is in no acute distress, awake, and alert. LUNGS: Clear to auscultation bilaterally. HEART: Regular rate and rhythm. ABDOMEN: Soft, nontender, nondistended, bowel sounds are present. EXTREMITIES: No lower extremity edema. IMPRESSION: 1. Chronic anemia with iron deficiency, on chronic anticoagulation. Also, with a component of anemi a of chronic renal insufficiency. 2. Atrial fibrillation and diastolic heart failure with the need for anticoagulation. 3. Chronic kidney disease. His creatinine is improved today. 4. Moderate aortic stenosis. RECOMMENDATIONS: Continue clear liquids today with bowel prep this evening. Plan for EGD and colono scopy tomorrow morning. His last dose of Xarelto was morning.
[2018-04-17] MEDS: Dronedarone HCl 400 MG TAB PO SCH (16:31)
[2018-04-17] MEDS: Ferrous Sulfate 325 MG TAB PO SCH (16:32)
[2018-04-17] MEDS ORDERED: GoLYTELY 4,000 ml Bottle PO SCH (17:00)
[2018-04-17] MEDS: Carvedilol 3.125 MG TAB PO SCH (20:53)
[2018-04-17] MEDS: Famotidine 20 MG TAB PO SCH (20:53)
[2018-04-17] MEDS ORDERED: Cyanocobalamin (Vitamin B-12) 1,000 MCG TAB PO SCH (21:00)
[2018-04-18] MEDS: Carvedilol 3.125 MG TAB PO SCH (05:03)
[2018-04-18 05:04] LABS: Hemoglobin 8.5 g/dL (14.0-18.0); Platelet Count 221 thou/uL (130-400)
[2018-04-18] MEDS ORDERED: Ondansetron HCl/PF 4 MG/2 ML Vial IVP PRN (09:36)
[2018-04-18] MEDS ORDERED: Promethazine HCl 25 MG/ML VIAL SLOW IVP PRN (09:36)
[2018-04-18] MEDS ORDERED: Promethazine HCl 25 MG/ML VIAL IM PRN (09:36)
--- NOTE | 2018-04-18 10:32 | OP ---
DATE OF PROCEDURE: 04/18/2018 PROCEDURE PERFORMED: Esophagogastroduodenoscopy and colonoscopy with control of hemorrhage. PREOPERATIVE DIAGNOSIS: Iron deficiency anemia. PROCEDURE IN DETAIL: Informed consent was obtained from the patient. He was sedated with total intr avenous anesthesia. The bite block was placed and the endoscope was advanced easily to the second po rtion of the duodenum and retroflexion was performed in the stomach. There was a 5 cm hiatal hernia present. The esophagus, stomach, including retroflexed views and duodenum were otherwise normal. Th ere was melanosis of the first and second portions of the duodenum. The air was suctioned from the s tomach. The patient was turned around. Rectal exam was performed and was normal. The preparation q uality was fair to good. There was severe diverticulosis of the sigmoid, descending, and transverse colon. There was significant tortuosity of the sigmoid colon associated with the diverticulosis. Th e colonoscope was advanced to the terminal ileum. The mucosa of the terminal ileum was normal. The ileocecal valve and appendiceal orifice were clearly identified. There was a 9 mm vascular ectasia i n the cecum. This did bleed when touched with the Argon probe. The vascular ectasia was then cauter ized with Argon Plasma Coagulation. The remainder of the colonic mucosa was normal. Retroflex views in the rectum revealed small to moderate internal hemorrhoids. IMPRESSION: 1. Hiatal hernia. 2. 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 3. Otherwise normal esophagogastroduodenoscopy. 4. A 9 mm vascular ectasia was cauterized in the cecum with Argon Plasma Coagulation. This did blee d and likely could have been a significant bleeding source while on full anticoagulation. 5. Severe diverticulosis of the transverse, descending and sigmoid colon. 6. Small to moderate internal hemorrhoids. 7. Otherwise normal colonoscopy to the terminal ileum. RECOMMENDATIONS: 1. Hold anticoagulation for 5 days. 2. Follow up in GI clinic in a month to recheck hemoglobin. 3. I will sign off. Please call if GI can be of assistance.
[2018-04-18 10:51] VITALS: TEMP 97.6
[2018-04-18] MEDS: Ferrous Sulfate 325 MG TAB PO SCH (10:53)
[2018-04-18] MEDS: Dronedarone HCl 400 MG TAB PO SCH (10:53)
[2018-04-18] MEDS: Potassium Chloride 20 MEQ TAB PO SCH (10:53)
--- NOTE | 2018-04-18 12:22 | PRG ---
DATE OF SERVICE: 04/18/2018 SUBJECTIVE: A 72-year-old male being seen for acute kidney injury. The patient denies any nausea, v omiting, or chest pain. OBJECTIVE: GENERAL: Patient is awake, alert. VITAL SIGNS: Afebrile, pulse 64, breathing 16, blood pressure was 163/68. HEENT: Atraumatic, normocephalic. Oral mucosa is moist. NECK: Supple. CARDIOVASCULAR: S1 and S2 heard. Rate and rhythm regular. RESPIRATORY: Clear to auscultation. GASTROINTESTINAL: Abdomen is soft. MUSCULOSKELETAL: No tenderness. No edema. DERMATOLOGIC: No skin rash. NEUROLOGIC: Alert and awake and oriented x3. No focal neurologic deficits. Moving all the extremit ies. PSYCHIATRIC: Mood and affect normal. LABORATORY: Hemoglobin 8.5, potassium 4.1, creatinine 1.5. ASSESSMENT AND PLAN: 1. Acute kidney injury with chronic kidney disease, stable. 2. Hypertension, stable. 3. Anemia, stable. 4. Medication based on glomerular filtration rate are appropriate. No indication for dialysis.
[2018-04-18] MEDS ORDERED: PROPOFOL 200 MG/20 ML VIAL ONE (14:56)
[2018-04-18 15:01] VITALS: BP 138/50
--- NOTE | 2018-04-18 17:52 | DIS ---
DATE OF ADMISSION: 04/15/2018 DATE OF DISCHARGE: 04/18/2018 DISCHARGE DIAGNOSES: 1. Symptomatic anemia, status post 2 units of packed red blood cells, stable. 2. Question of lower gastrointestinal bleed with cecal AVM, status post argon plasma coagulation. 3. Diverticulosis coli. 4. Acute on chronic normocytic anemia. 5. Acute kidney injury on chronic kidney disease stage 4. 6. Hypokalemia, resolved. 7. Chronic anticoagulation with Xarelto. 8. Hypertension, stable. CONSULTATIONS: Dr. Phan with GI service. Dr. Ruiz with Nephrology Service. PERTINENT LABORATORY AND X-RAY FINDINGS: Potassium ranged between 2.9-4.1, creatinine ranged between 1.52-2.69, estimated GFR ranging between 23-45. CBC showed a hemoglobin ranging between 6.8-8.8, pl atelet count ranged between 221-362. Stool Hemoccult on 04/15/2018 and 04/17/2018 negative. 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 HOSPITAL COURSE: Patient was admitted to the medical floor after initially presenting with generaliz ed weakness and acute on chronic anemia with symptomatic anemia. The patient with initial hemoglobin of 6.8, receiving 2 units of packed red blood cells as well as IV fluids. The patient was evaluated by the GI service with recommendations to pursue EGD and colonoscopy. The patient underwent appropr iate bowel prep proceeding with EGD and colonoscopy on 04/18/2018. The patient was noted with a 9 mm AVM of the cecum undergoing argon plasma coagulation with extensive diverticulosis coli. No other a azar of active bleeding was identified; however, the patient with a longstanding history of chronic an ticoagulation with Xarelto. Recommendations are to hold Xarelto for approximately 5 days and monitor for GI bleed. The patient also recommended to continue iron supplementation and follow up on an out patient basis for serial hemoglobin monitoring. Overall, the patient remained clinically stable thro ughout the hospital course, tolerating regular oral intake, ambulating without assistance or difficul ty and voiding appropriately. I have examined the patient at the time of discharge and discussed per tinent followup instructions. The patient and spouse verbalized understanding and in agreement and r susana for discharge on 04/18/2018. DISCHARGE MEDICATIONS: 1. Vitamin C 500 mg 1 tab p.o. daily. 2. Enteric-coated aspirin 81 mg 1 tab p.o. daily. 3. Vitamin B12 500 mcg p.o. daily. 4. Diltiazem HCL extended release 120 mg p.o. daily. 5. Multaq 400 mg p.o. b.i.d. 6. Ferrous sulfate 325 mg p.o. b.i.d. 7. Lasix 40 mg p.o. daily. 8. Hydralazine 100 mg p.o. t.i.d. 9. Multivitamin 1 tab p.o. daily. 10. Klor-Con 10 mEq p.o. daily. 11. Xarelto 15 mg p.o. daily, hold until 04/25/2018. 12. Carvedilol 3.125 mg p.o. b.i.d. FOLLOWUP: Patient will follow up with his primary care provider, Dr. Osmani Gage within 7 days of d ischarge. The patient will follow up with Dr. Ervin Phan with GI service 4 weeks after discharge. The patient may also follow up with [facility] on 05/03 at 1:00 p.m. CONDITION ON DISCHARGE: Stable. ACTIVITY: Ad tawnya. DIET: Heart healthy. CODE STATUS: Do not resuscitate. DISPOSITION: Home on 04/18/2018. Total time preparing and coordinating discharge is 33 minutes.
== END 2018-04-18 14:45 | disposition home or self-care (01) | DRG 299 ==
LOC: ERS 14:42 → T4-B 17:55 → OBSVTOIN 04-16 15:02
PROVIDERS: ADMIT Family Medicine; ATTEND Family Medicine
PROC: 30233N1 Transfusion of Nonautologous Red Blood Cells into Peripheral Vein, Percutaneous Approach (ICD-10-PCS; principal; 2018-04-15)
PROC: 0DJ08ZZ Inspection of Upper Intestinal Tract, Via Natural or Artificial Opening Endoscopic (ICD-10-PCS; 2018-04-18)
PROC: 0W3P8ZZ Control Bleeding in Gastrointestinal Tract, Via Natural or Artificial Opening Endoscopic (ICD-10-PCS; 2018-04-18)
DX: Q27.33 Arteriovenous malformation of digestive system vessel (principal); K55.21 Angiodysplasia of colon with hemorrhage; I13.2 Hypertensive heart and chronic kidney disease with heart failure and with stage 5 chronic kidney disease, or end stage renal disease; N18.5 Chronic kidney disease, stage 5; I50.32 Chronic diastolic (congestive) heart failure; N17.9 Acute kidney failure, unspecified; E87.6 Hypokalemia; D63.1 Anemia in chronic kidney disease; Z66 Do not resuscitate; Z79.01 Long term (current) use of anticoagulants; I25.10 Atherosclerotic heart disease of native coronary artery without angina pectoris; I48.2 Chronic atrial fibrillation; I73.9 Peripheral vascular disease, unspecified; I35.0 Nonrheumatic aortic (valve) stenosis; K44.9 Diaphragmatic hernia without obstruction or gangrene; K63.89 Other specified diseases of intestine; K57.30 Diverticulosis of large intestine without perforation or abscess without bleeding; K64.8 Other hemorrhoids; D50.0 Iron deficiency anemia secondary to blood loss (chronic)
CPT/HCPCS: 36415; 36430; 80048; 80053; 81003; 82274; 85007; 85014; 85018; 85025; 85027; 85049; 85610; 85730; 86850; 86900; 86901; 99285; A4216; J0360; J2704; P9016; Q4081

== ENCOUNTER → 2018-08-25 | Day surgery (SDC) | payer MEDICARE, OTHER ==
[2018-08-24 16:52] VITALS: BMI 22.2
[~2018-08-25] MED LIST changes: -Heparin 10,000 UNITS/ 10 ML VIAL ONE; +Lidocaine 1% PF 5 ML VIAL ONE; +PHENYLEPHRINE-NS 100 MCG/ML 10 ML SYRINGE ONE; +PROPOFOL 20 ML ONE; +PROPOFOL 200 MG/20 ML VIAL ONE
--- NOTE | 2018-08-25 21:05 | OP ---
PREPROCEDURE DIAGNOSIS: Recent Watchman placement. POSTPROCEDURE DIAGNOSIS: 1. No significant leak noted on the Watchman. 2. Moderate to severe aortic stenosis. 3. Mild to moderate MR. COMPLICATIONS: None. Prior to the procedure and propofol. patient was consented to the procedure. This was discussed in full detail with the patient. The risks of the procedure include but are not limited to the damaged teeth, back of throat damage, damage to esophagus, as well as a reaction to medication. All questio ns were answered. Given the above, the patient agreed to proceed with above procedure. FINDINGS: Watchman well visualized. No significant jets noted around the Watchman device. It appeared well sea soto. There did appear to be moderate to severe aortic stenosis with calcification present. There is mild to moderate MR. IMPRESSION: Well seated Watchman with no significant leakage.
== END ==
LOC: CCL 05:49
PROVIDERS: ATTEND Internal Medicine Cardiovascular Disease
PROC: B24BZZ4 Ultrasonography of Heart with Aorta, Transesophageal (ICD-10-PCS; principal; 2018-08-25)
DX: I48.0 Paroxysmal atrial fibrillation (principal); I35.0 Nonrheumatic aortic (valve) stenosis; I34.0 Nonrheumatic mitral (valve) insufficiency; I13.0 Hypertensive heart and chronic kidney disease with heart failure and stage 1 through stage 4 chronic kidney disease, or unspecified chronic kidney disease; N18.3 Chronic kidney disease, stage 3 (moderate); I50.32 Chronic diastolic (congestive) heart failure; I73.9 Peripheral vascular disease, unspecified; Z79.01 Long term (current) use of anticoagulants; Z79.82 Long term (current) use of aspirin; Z79.899 Other long term (current) drug therapy; Z95.818 Presence of other cardiac implants and grafts
CPT/HCPCS: 93312; J2001; J2704

== ENCOUNTER 2018-10-01 08:34 | Inpatient (IN) | payer MEDICARE, OTHER ==
[2018-10-01 09:14] LABS: #Eosinphils 0.1 thou/uL (0.0-0.7); #Monocytes 0.8 thou/uL (0.11-0.59); %Basophils 0.1 % (0.0-1.0); %Eosinophils 1.2 % (0.0-10.0); %Lymphocytes 9.8 % (21.0-51.0); %Monocytes 7.8 % (0.0-10.0); %Neutrophils 81.1 % (42.0-75.0); Hemoglobin 9.5 g/dL (14.0-18.0); Mean Corpuscular HGB CONC 31.5 g/dL (32.0-36.0); Mean Corpuscular Hemoglobin 25.7 pg (27.0-31.0); Mean Corpuscular Volume 81.5 fL (78.0-98.0); Mean Platelet Volume 9.4 fL (7.4-10.4); Platelet Count 216 thou/uL (130-400); RBC Distribution Width 16.5 % (11.5-14.5); Red Blood Cell (RBC) Count 3.69 mill/uL (4.70-6.10); White Blood Cell (WBC) Count 9.8 thou/uL (4.8-10.8)
--- NOTE | 2018-10-01 09:20 | RAD ---
CHEST ONE VIEW: HISTORY: Weakness. COMPARISON: Chest radiograph from 03/28/2018. FINDINGS: Diffuse air space opacities throughout the lungs. Layering effusions. Heart size is enlarged. No p neumothorax. Old right mid clavicular fracture. No acute osseous abnormality. IMPRESSION: Diffuse air space opacities throughout the lungs, suggesting multifocal pneumonia. This is superimpo sed on likely edema and congestive heart failure. POS: TPC
[2018-10-01] MEDS ORDERED: cefTRIAXone\\ROCEPHIN 2 GM VIAL ONE (09:49)
[2018-10-01] MEDS ORDERED: Furosemide 100 MG/10 ML VIAL ONE (09:49)
[2018-10-01 09:56] LABS: ALT (SGPT) 29 U/L (8-55); AST (SGOT) 23 U/L (5-34); Albumin 3.8 g/dL (3.4-4.8); Alkaline Phosphatase 103 U/L (40-150); Anion Gap 20 mmol/L (10-20); BUN (Urea Nitrogen) 108 mg/dL (8.4-25.7); Bilirubin, Total 1.1 mg/dL (0.2-1.2); CK (CPK) 35 U/L (30-200); Calc. Creatinine Clearance 0 mL/min (70-130); Calcium 9.6 mg/dL (7.8-10.44); Carbon Dioxide 24 mmol/L (23-31); Chloride 100 mmol/L (98-107); Estimated GFR-MDRD 15; Globulin 4.5 g/dL (2.4-3.5); Glucose 133 mg/dL (83-110); Potassium 3.5 mmol/L (3.5-5.1); Protein, Total 8.3 g/dL (5.8-8.1); Sodium 140 mmol/L (136-145)
[2018-10-01 12:47] LABS: Troponin I 0.054 ng/mL (< 0.028)
[2018-10-01] MEDS ORDERED: Ondansetron PF 4 MG/2 ML Vial IVP PRN (13:44)
[2018-10-01] MEDS ORDERED: HYDROcodone/Acetaminophen 5/325 mg Tablet PO PRN (13:44)
[2018-10-01] MEDS ORDERED: Bisacodyl 5 MG TAB PO PRN (13:44)
[2018-10-01] MEDS ORDERED: Acetaminophen 325 MG TAB PO PRN (13:44)
[2018-10-01] MEDS ORDERED: Acetaminophen 650 MG Suppository PR PRN (13:44)
[2018-10-01] MEDS ORDERED: Zolpidem Tartrate 5 MG TAB PO PRN (13:44)
[2018-10-01] MEDS ORDERED: Ondansetron ODT 4 MG TAB PO PRN (13:44)
[2018-10-01] MEDS ORDERED: Senokot S 8.6-50 MG TAB PO PRN (13:44)
[2018-10-01] MEDS ORDERED: Furosemide 40 MG/4 ML VIAL SLOW IVP SCH (14:15)
[2018-10-01 15:37] LABS: Troponin I 0.145 ng/mL (< 0.028)
[2018-10-01] MEDS: hydrALAZINE 25 MG TAB PO SCH ×2 (16:19→21:03)
[2018-10-01] MEDS: Dronedarone HCl 400 MG TAB PO SCH ×2 (17:07→18:01)
[2018-10-01] MEDS ORDERED: Metolazone 5 MG TAB PO SCH (18:00)
[2018-10-01 19:53] VITALS: BMI 21.5
[2018-10-01] MEDS: Carvedilol 25 MG TAB PO SCH (21:03)
--- NOTE | 2018-10-01 21:20 | HP ---
CHIEF COMPLAINT: Increasing shortness of breath since yesterday. HISTORY OF PRESENTING ILLNESS: This is a 73-year-old gentleman with a history of diastolic heart failure and end-stage renal failure, comes in with one-day history of increasing shortness of breath. The patient seemed to have gained some fluid weight in the past few days. The patient is being compliant with his medications. PAST MEDICAL HISTORY: Significant for coronary artery disease, peripheral vascular disease, hypertension, atrial fibrillation, hyperlipidemia. The patient is no longer on dialysis. SURGICAL HISTORY: Significant for Watchman device that was placed in 2018, carotid endarterectomy, stenting of peripheral vessel in the left lower extremity. Left upper extremity fistula. Dialysis port to the chest wall previously placed is removed. PSYCHIATRIC HISTORY: No previous psychiatric history. SOCIAL HISTORY: The patient lives at home independently. He has a sedentary lifestyle. Occasional alcohol use. Denies any drug or smoking history. ALLERGIES: ALLERGIC TO GABAPENTIN AND LISINOPRIL. REVIEW OF SYSTEMS: CONSTITUTIONAL: The patient denies any chest pain or fever. Positive for cough. HEENT: No complaints of headache. No trauma to the head, no discharge or pain in the eyes. No discharge or pain in the ears. No sore throat. No oral ulcerations. RESPIRATORY: Negative for any wheezing. Increasing shortness of breath with cough since one day. CARDIOVASCULAR: Negative for any chest pain, palpitations. GI: The patient denies any constipation, diarrhea, hematochezia, or melena. No nausea or vomiting. GENITOURINARY: Denies any dysuria or hematuria. MUSCULOSKELETAL: He complains of increasing swelling of the lower extremities. NEUROLOGIC: Denies any headaches, dizziness, or focal deficits. PSYCHIATRIC: Negative for any psychiatric review. PHYSICAL EXAMINATION: VITAL SIGNS: Blood pressure 126/68, pulse 73, respiratory rate around 16, temperature 98, pain 0, O2 saturation with a non-rebreather is 94%. CONSTITUTIONAL: The patient is thin and frail looking. HEENT: Atraumatic, normocephalic head. Eye examination is within normal limits with eyelids and conjunctivae within normal limits. Pupils are round and reactive to light, nasal septum is medially placed, external ear and tympanic membranes are within normal limits, trachea is midline with a full range of motion of the neck. RESPIRATORY/CHEST: Examination shows coarse breath sounds all over, no wheezes. CARDIOVASCULAR: Regular rate and rhythm. No murmurs, no rubs, no gallops. ABDOMEN: Soft, nontender, nondistended. No masses. No guarding. No rebound. MUSCULOSKELETAL: Bilateral lower extremity pedal edema 3+. SKIN: Examination shows warm, dry, and normal in color. No rashes. PSYCH: Examination shows the patient is alert and oriented x3. Normal affect. No signs of any depression or anxiety. ASSESSMENT AND PLAN: 1. Congestive heart failure exacerbation, diastolic. Recently completed echocardiogram shows preserved ejection fraction around 50% to 55%. Diastolic dysfunction. Continue IV Lasix with fluid restriction of 1500 mL, salt restriction, daily weights, and strict inputs and outputs. Continue carvedilol. 2. Hypertension. Continue home medication, carvedilol. 3. Paroxysmal atrial fibrillation. Continue home Multaq and the patient is with Watchman device, not sure if he is still on Xarelto, but I do see it as a home medication. 4. Peripheral vascular disease with stent. Continue aspirin and statin along with Plavix. 5. End-stage renal failure. We will consult his renal doctor Dr. Chcaon. We will continue with diuresis, albeit gently. 6. We would also continue to trend the creatinine, and we will discuss with Dr. Chacon if the patient needs dialysis. 7. Acute on chrornic respiratory failure; Requiring bipap, non breather and NC oxygen 8. DNR. 9. MAY CONSIDER DIALYSIS IF REQUIRED. Job ID: [id number] MTD[facility]
--- NOTE | 2018-10-02 00:32 | CON ---
DATE OF CONSULTATION: NEPHROLOGY CONSULTATION REASON FOR CONSULTATION: Elevated creatinine. HISTORY OF PRESENT ILLNESS: This is a very pleasant 73-year-old gentleman, who presented to the hospital with cough and shortness of breath. The patient's creatinine increased from 3 to 3.9, and was hypoxic, and started on oxygen. The patient was on dialysis and was taken off. PAST MEDICAL HISTORY: Significant for hypertension, anemia, peripheral vascular disease, AV fistula, tunneled dialysis catheter, carotid endarterectomy. SOCIAL HISTORY: No alcohol or drug use. FAMILY HISTORY: Negative ESRD. ALLERGIES: REVIEWED. MEDICATIONS: Home medication, list reviewed. REVIEW OF SYSTEMS: A 15-point review of systems was performed and was negative except for positives noted above. NECK: No swelling or lumps. NOSE: No epistaxis or discharge. EYES: No diplopia or pain. MUSCULOSKELETAL: No joint pain. NEUROPSYCHIATRIC SYSTEMS: No suicidal ideation. No ideation. SKIN: Denies any rash or ulcer. CONSTITUTIONAL: No fever or chills. OBJECTIVE: GENERAL: The patient is awake, alert, in no acute distress. VITAL SIGNS: Afebrile, pulse 80, breathing 16, and blood pressure 123/63. GENERAL APPEARANCE AND MENTAL STATUS: Fair. HEAD/NECK: Normocephalic. Atraumatic. EYES: EOMI. No deformity. EARS: Clear. No ulcers. NOSE: Intact. No lesions. MOUTH: Clear. No discharge. THROAT: Clear. No exudate. LUNGS: Clear. No crackles. CARDIAC: S1, S2. No rub. ABDOMEN: Benign. Bowel sounds positive. GENITALIA/RECTUM: Howard absent. BACK/EXTREMITIES: Edema 0+. NEUROLOGICAL: Alert and motor intact. LABORATORY DATA: Labs show hemoglobin 9.5, creatinine 3.9. ASSESSMENT: 1. Acute kidney injury with chronic kidney disease stage 4 due to cardiorenal syndrome, continue diuresis. 2. Hypertension, stable. 3. Anemia, stable. 4. Pneumonia. 5. We will plan dialysis if the renal function worsens. 6. No urgent indication for dialysis. Job ID: [id number]
--- NOTE | 2018-10-02 01:10 | CON ---
DATE OF CONSULTATION: 10/01/2018 HISTORY OF PRESENT ILLNESS: Pipo Goins Jr. is a pleasant 73-year-old male, who is followed by Dr. Oneil. He has paroxysmal atrial fibrillation and recently underwent Watchman procedure. On September 08, Dr. Oneil performed transesophageal echo, which revealed that the Watchman device was well-seated. Mr. Goins has diastolic heart failure and aortic stenosis. He also has chronic kidney disease. He has noticed over the last 2 days that he has had increased shortness of breath and nonproductive cough. He then awoke this morning at 4:00 a.m., very short of breath. He denied any chest discomfort. When he arrived to the emergency room, O2 saturation was 79%. His had previously given him 2 Lasix and 1 metolazone. Mr. Goins was also noted over the past several days that his legs have become more edematous. At the present time, BiPAP is on and he is resting comfortably and states his breathing is dramatically improved. PAST MEDICAL HISTORY: Hypertension, hypercholesterolemia, Gonzalez's palsy, peripheral vascular disease with stent placement, chronic kidney disease on dialysis in the past. OPERATIONS: Peripheral vascular stenting, left upper extremity fistula, carotid endarterectomy bilateral, and Watchman placement. MEDICATIONS: 1. Aspirin 81 daily. 2. Carvedilol 12.5 mg b.i.d. 3. Atorvastatin 20 daily. 4. Multaq 40 mg b.i.d. 5. Furosemide 20 mg b.i.d. 6. Hydralazine 100 t.i.d. 7. Amlodipine 5 mg daily. 8. Pepcid AC 20 mg daily. 9. KCl 20 mEq daily. 10. Plavix 75 daily. 11. Ambien 5 mg orally. ALLERGIES: GABAPENTIN AND LISINOPRIL. SOCIAL HISTORY: He stopped smoking more than 10 years ago. He does not drink. REVIEW OF SYSTEMS: A 12-point review of systems is otherwise unremarkable. PHYSICAL EXAMINATION: VITAL SIGNS: Blood pressure 168/85, pulse of 91, normal sinus rhythm on the monitor. HEENT: PERRL. NECK: Supple. CHEST: Reveals rales, one and a half the way up the posterior lung de la torre. CARDIAC: S1 and S2 normal. There is a 2/6 systolic murmur on the left sternal border. ABDOMEN: Normal bowel sounds without tenderness or organomegaly. EXTREMITIES: Revealed 1 to 2+ pretibial edema. NEUROLOGIC: Grossly intact. SKIN: Warm and dry. LABORATORY DATA: EKG revealed normal sinus rhythm with nonspecific ST-segment changes. Chest x-ray reveals pulmonary edema. Hemoglobin 9.5, hematocrit 30.1, white count 9800, and platelets 216,000. Sodium 140, potassium 3.5, chloride 100, carbon dioxide 24, BUN 108, creatinine 3.97. Troponin I is 0.145. BNP 3157.9. IMPRESSION: 1. Acute pulmonary edema. This is probably multifactorial with his history of diastolic heart failure, moderate aortic stenosis, and progressive chronic kidney disease. 2. Moderate aortic stenosis. 3. History of diastolic failure. 4. Acute kidney injury on top of chronic kidney disease. 5. Hypertension. 6. Hyperlipidemia. 7. Former smoker. 8. Peripheral vascular disease. 9. Paroxysmal atrial fibrillation, currently in sinus rhythm. Watchman device in place and he does not require anticoagulation with Coumadin or some of the newer agents. PLAN: The patient will be gently diuresed. Echo will be performed to reassess left ventricular function, as well as the severity of his aortic stenosis. There certainly may be the need to resume dialysis. Job ID: [id number] [facility]
[2018-10-02 05:35] LABS: #Lymphocytes 0.8 thou/uL (1.20-3.40); #Monocytes 0.9 thou/uL (0.11-0.59); #Neutrophils 6.5 thou/uL (1.40-6.50); %Basophils 0.3 % (0.0-1.0); %Eosinophils 0.1 % (0.0-10.0); %Lymphocytes 9.3 % (21.0-51.0); %Monocytes 10.6 % (0.0-10.0); %Neutrophils 79.8 % (42.0-75.0); Hemoglobin 8.8 g/dL (14.0-18.0); Mean Corpuscular HGB CONC 30.9 g/dL (32.0-36.0); Mean Corpuscular Hemoglobin 25.4 pg (27.0-31.0); Mean Corpuscular Volume 82.2 fL (78.0-98.0); Platelet Count 189 thou/uL (130-400); RBC Distribution Width 17.1 % (11.5-14.5); Red Blood Cell (RBC) Count 3.49 mill/uL (4.70-6.10); White Blood Cell (WBC) Count 8.1 thou/uL (4.8-10.8)
[2018-10-02 05:57] LABS: Anion Gap 18 mmol/L (10-20); BUN (Urea Nitrogen) 114 mg/dL (8.4-25.7); Calc. Creatinine Clearance 14 mL/min (70-130); Calcium 9.7 mg/dL (7.8-10.44); Carbon Dioxide 27 mmol/L (23-31); Chloride 100 mmol/L (98-107); Estimated GFR-MDRD 15; Glucose 113 mg/dL (83-110); Sodium 142 mmol/L (136-145)
[2018-10-02 06:00] LABS: Potassium 2.9 mmol/L (3.5-5.1)
[2018-10-02] MEDS ORDERED: Potassium Chloride 20 MEQ TAB PO SCH ×2 (06:15→08:30)
[2018-10-02] MEDS: Potassium Chloride 10 MEQ TAB PO SCH (08:36)
[2018-10-02] MEDS: Carvedilol 25 MG TAB PO SCH ×2 (08:36→19:55)
[2018-10-02] MEDS: hydrALAZINE 25 MG TAB PO SCH ×3 (08:36→20:01)
[2018-10-02] MEDS: Dronedarone HCl 400 MG TAB PO SCH ×2 (08:36→18:08)
[2018-10-02] MEDS: Furosemide 40 MG/4 ML VIAL SLOW IVP SCH (08:37)
[2018-10-02] MEDS: cefTRIAXone\\ROCEPHIN 2 GM in Sodium Chloride 0.9% 100 ML IVPB SCH (09:36)
--- NOTE | 2018-10-02 12:11 | CON ---
DATE OF CONSULTATION: HISTORY OF PRESENT ILLNESS: Pipo Goins is a 73-year-old gentleman from [place], [place], who presented yesterday with increasing shortness of breath. He could barely walk 20 feet without getting dyspneic. Former smoker, quit smoking many years ago. He denies any fevers, chills, or sweats. He was coughing sputum, which was relatively clear. His oxygen saturation was 79% on room air. X-ray shows extensive bilateral pleural effusions. For a period of time, he was placed on BiPAP. PAST MEDICAL HISTORY: End-stage renal disease, he is considering dialysis. History of peripheral vascular disease, history of congestive heart failure, history of COPD, history of cardiac arrhythmias, history of previous Gonzalez palsy. PAST SURGICAL HISTORY: Previous surgeries including access to upper extremity, carotid endarterectomy, and Watchman placement. MEDICATIONS: His list of medicine from home includes, 1. Norvasc. 2. Pepcid. 3. Ambien. 4. Lipitor. 5. Hydralazine 100 mg three times a day. 6. Aspirin 81. 7. Coreg 25 twice a day. 8. Lasix 40 twice a day. 9. Multaq 400 twice a day. ALLERGIES: LISINOPRIL. FAMILY HISTORY: Unremarkable. SOCIAL HISTORY: Worked in [employer] one time. REVIEW OF SYSTEMS: Ten-point negative. PHYSICAL EXAMINATION: GENERAL: Awake, alert, responsive. VITAL SIGNS: Sats are 93% on 5 L, blood pressure 150/78, temperature 99, respirations 18. CHEST: Bilaterally decreased breath sounds without any wheezing. CARDIAC: Normal S1, S2. No gallop. ABDOMEN: Soft. EXTREMITIES: No edema. NEUROLOGIC: He is awake, alert, and responsive. LABORATORY DATA: White count 8000, , platelet count 189. Potassium 2.9, creatinine 3.97, BUN 114. Troponin was normal. IMPRESSION: 1. Respiratory failure secondary to acute on chronic diastolic dysfunction. 2. Renal failure, possibly superimposed pneumonia. PLAN: Pulmonary espinal, I have started neb treatments, completing antibiotics. Await input from Nephrology. More than likely his effusion is not going to get better without dialysis. It is unclear what his code status is. At the present time, he wants all supportive care. Job ID: [id number]
--- NOTE | 2018-10-02 13:07 | PDOC.PN ---
- Subjective Encounter Start Date: 10/02/18 Encounter Start Time: 13:06 Subjective: Increased SOB, not tolerating even minimum activity - Objective Resuscitation Status - Order Detail: 10/02/18 11:19 Resuscitation Status Routine Resuscitation Status: PRTL: Intubate only Discussed with: PATIENT NILESH Reviewed: Yes Vital Signs & Weight: Vital Signs (12 hours) Temp Pulse Resp BP BP Pulse Ox 10/02/18 11:42 99.2 F 91 109/66 90 L 10/02/18 08:36 75 155/78 H 10/02/18 08:00 93 L 10/02/18 07:50 93 L 10/02/18 07:46 99.4 F 75 20 144/74 H 97 10/02/18 06:21 78 19 99 10/02/18 04:00 98.4 F 79 21 H 132/61 97 10/02/18 02:21 75 26 H 99 Weight Weight 129 lb I&O: 10/01/18 10/02/18 10/03/18 06:59 06:59 06:59 Intake Total 290 Output Total 730 Balance -440 Result Diagrams: 10/02/18 04:54 10/02/18 04:54 Phys Exam - Physical Examination Neck: no nodes, no JVD + rales Cardiovascular: RRR, no significant murmur Gastrointestinal: soft, non-tender, no distention, positive bowel sounds Musculoskeletal: edema present 2+ pitting edema Neurological: non-focal, normal sensation, moves all 4 limbs Psychiatric: normal affect, A&O x 3 Skin: no rash, normal turgor, cap refill <2 seconds Dx/Plan (1) Acute and chronic respiratory failure Code(s): J96.20 - ACUTE AND CHR RESP FAILURE, UNSP W HYPOXIA OR HYPERCAPNIA Status: Acute Qualifiers: Respiratory failure complication: hypoxia Qualified Code(s): J96.21 - Acute and chronic respiratory failure with hypoxia Comment: Patient required Bipap, has agreed for intubation if required. Will continue to diurese gently and if required patient will restart dialysis too. (2) Acute on chronic diastolic CHF (congestive heart failure) Code(s): I50.33 - ACUTE ON CHRONIC DIASTOLIC (CONGESTIVE) HEART FAILURE Status : Acute Comment: EF 40-45%, severe AR, Severe TR. Continue diuresis and carvedilol (3) ESRD (end stage renal disease) Code(s): N18.6 - END STAGE RENAL DISEASE Status: Acute Comment: Patient is off of dialysis now. If required will restart dialysis. Left AVG intact (4) Afib Code(s): I48.91 - UNSPECIFIED ATRIAL FIBRILLATION Status: Chronic Qualifiers: Atrial fibrillation type: paroxysmal Qualified Code(s): I48.0 - Paroxysmal atrial fibrillation Comment: Continue Multaq, WATCHMAN DEVICE PLACED PREVIOUSLY (5) CKD (chronic kidney disease), stage IV Code(s): N18.4 - CHRONIC KIDNEY DISEASE, STAGE 4 (SEVERE) Status: Chronic Comment: WORSENING RENAL FUNCTION. (6) Chronic anticoagulation Code(s): Z79.01 - USP (CURRENT) USE OF ANTICOAGULANTS Status: Chronic Comment: WATCHMAN device no longer on any AC (7) HLD (hyperlipidemia) Code(s): E78.5 - HYPERLIPIDEMIA, UNSPECIFIED Status: Chronic Qualifiers: (8) HTN (hypertension) Code(s): I10 - ESSENTIAL (PRIMARY) HYPERTENSION Status: Chronic Qualifiers: Comment: Resume Carvedilol and multaq serial BP monitoring (9) PAD (peripheral artery disease) Code(s): I73.9 - PERIPHERAL VASCULAR DISEASE, UNSPECIFIED Status: Chronic - Plan cont current plan of care, plan discussed w/ family, respiratory therapy, DVT proph w/SCDs * .
--- NOTE | 2018-10-02 14:04 | PRG ---
DATE OF SERVICE: 10/02/2018 SUBJECTIVE: A 73-year-old gentleman, being seen for end-stage renal disease. The patient denies any nausea, vomiting, or chest pain. OBJECTIVE: CONSTITUTIONAL: Awake, alert, in no acute distress. VITAL SIGNS: Temperature afebrile, pulse 90, breathing 16, blood pressure 155/78. GENERAL APPEARANCE AND MENTAL STATUS: Fair. HEAD/NECK: Normocephalic. Atraumatic. EYES: EOMI. No deformity. EARS: Clear. No ulcers. NOSE: Intact. No lesions. MOUTH: Clear. No discharge. THROAT: Clear. No exudate. LUNGS: Clear. No crackles. CARDIAC: S1, S2. No rub. ABDOMEN: Benign. Bowel sounds positive. GENITALIA/RECTUM: Howard absent. BACK/EXTREMITIES: Edema 0+. NEUROLOGICAL: Alert and motor intact. ASSESSMENT: 1. End-stage renal disease, planned dialysis. 2. Uremia, planned dialysis. 3. Hypokalemia, treated with potassium replacement. 4. Medications based on glomerular filtration rate are appropriate. Job ID: [id number]
[2018-10-02 16:07] LABS: HBSAg Index 0.21 S/CO (0-0.99); Hep B Core Total Ab Non-Reactive (NonReactive); Hep B Surf Ag Non-Reactive S/CO (NonReactive); Hep C IgG Ab Non-Reactive (NonReactive); Hep C Index 0.22 S/CO (0-0.79)
[2018-10-02 16:49] LABS: HBSAB Concentration 50.36 mIU/mL; Hep B Surf AB Reactive (NonReactive)
[2018-10-03] MEDS: Iron Fum,Ps Cmp/Vit C/Niacin [Integra] 1 CAP PO SCH (07:53)
[2018-10-03] MEDS: hydrALAZINE 25 MG TAB PO SCH ×3 (09:00→21:16)
[2018-10-03] MEDS: Furosemide 40 MG/4 ML VIAL SLOW IVP SCH (11:08)
[2018-10-03] MEDS: cefTRIAXone\\ROCEPHIN 2 GM in Sodium Chloride 0.9% 100 ML IVPB SCH (11:14)
[2018-10-03] MEDS: Potassium Chloride 10 MEQ TAB PO SCH (11:15)
[2018-10-03] MEDS: Dronedarone HCl 400 MG TAB PO SCH ×2 (11:15→17:12)
[2018-10-03] MEDS: Carvedilol 25 MG TAB PO SCH ×2 (11:15→21:14)
[2018-10-03 12:34] LABS: Anion Gap 17 mmol/L (10-20); BUN (Urea Nitrogen) 30 mg/dL (8.4-25.7); Calc. Creatinine Clearance 32 mL/min (70-130); Calcium 9.8 mg/dL (7.8-10.44); Carbon Dioxide 27 mmol/L (23-31); Chloride 101 mmol/L (98-107); Estimated GFR-MDRD 42; Glucose 93 mg/dL (83-110); Potassium 3.8 mmol/L (3.5-5.1); Sodium 141 mmol/L (136-145)
--- NOTE | 2018-10-03 13:31 | PRG ---
DATE OF SERVICE: 10/03/2018 Status post dialysis, 3 L fluid was removed. He is doing better, less short of breath. OBJECTIVE: VITAL SIGNS: Saturations are 96% on 2 L, temperature 99, pulse 72, and blood pressure 136/67. CHEST: Decreased breath sounds. No wheezing. CARDIAC: Normal S1 and S2. No gallops. ABDOMEN: No masses. LABORATORY DATA: Creatinine 1.62. IMPRESSION: Acute on chronic renal failure, respiratory failure much improved, cardiac arrhythmias. Pulmonary espinal, continue neb treatments and supportive care. No evidence of any infection. I would deescalate to oral antibiotics. Job ID: [id number]
--- NOTE | 2018-10-03 14:57 | PDOC.PN ---
- Subjective Encounter Start Date: 10/03/18 Encounter Start Time: 14:56 Subjective: breathing better, S/P dialysis, removed 3+ liters - Objective Resuscitation Status - Order Detail: 10/02/18 11:19 Resuscitation Status Routine Resuscitation Status: PRTL: Intubate only Discussed with: PATIENT MAR Reviewed: Yes Vital Signs & Weight: Vital Signs (12 hours) Temp Pulse Resp BP Pulse Ox 10/03/18 14:08 67 16 10/03/18 11:06 99.0 F 72 20 136/67 96 10/03/18 07:32 98 10/03/18 07:31 99.9 F H 74 16 144/72 H 98 10/03/18 07:29 100 10/03/18 07:27 75 16 10/03/18 04:00 99.0 F 72 18 129/61 94 L Weight Weight 124 lb 1 oz I&O: 10/02/18 10/03/18 10/04/18 06:59 06:59 06:59 Intake Total 290 1184 Output Total 730 2775 Balance -440 -1591 Result Diagrams: 10/03/18 10:40 10/03/18 10:40 Phys Exam - Physical Examination tired HEENT: PERRLA, moist MMs, sclera anicteric, TM's clear, oral pharynx no lesions , 2+ tonsils Neck: no nodes, no JVD, supple, full ROM + rales, NC oxygen Cardiovascular: RRR, no significant murmur Gastrointestinal: soft, non-tender, no distention, positive bowel sounds Musculoskeletal: edema present LUE AVG Neurological: non-focal, normal sensation, moves all 4 limbs Psychiatric: normal affect, A&O x 3 Dx/Plan (1) Acute and chronic respiratory failure Code(s): J96.20 - ACUTE AND CHR RESP FAILURE, UNSP W HYPOXIA OR HYPERCAPNIA Status: Acute Qualifiers: Respiratory failure complication: hypoxia Qualified Code(s): J96.21 - Acute and chronic respiratory failure with hypoxia Comment: Patient required Bipap, has agreed for intubation if required. S/P dialysis, breathing better now (2) Acute on chronic diastolic CHF (congestive heart failure) Code(s): I50.33 - ACUTE ON CHRONIC DIASTOLIC (CONGESTIVE) HEART FAILURE Status : Acute Comment: EF 40-45%, severe AR, Severe TR. Continue diuresis and carvedilol (3) ESRD (end stage renal disease) Code(s): N18.6 - END STAGE RENAL DISEASE Status: Acute Comment: Patient restarted dialysis. Left AVG intact (4) Afib Code(s): I48.91 - UNSPECIFIED ATRIAL FIBRILLATION Status: Chronic Qualifiers: Atrial fibrillation type: paroxysmal Qualified Code(s): I48.0 - Paroxysmal atrial fibrillation Comment: Continue Multaq, WATCHMAN DEVICE PLACED PREVIOUSLY (5) CKD (chronic kidney disease), stage IV Code(s): N18.4 - CHRONIC KIDNEY DISEASE, STAGE 4 (SEVERE) Status: Chronic Comment: WORSENING RENAL FUNCTION. (6) Chronic anticoagulation Code(s): Z79.01 - CUSTODIAL (CURRENT) USE OF ANTICOAGULANTS Status: Chronic Comment: WATCHMAN device no longer on any AC (7) HLD (hyperlipidemia) Code(s): E78.5 - HYPERLIPIDEMIA, UNSPECIFIED Status: Chronic Qualifiers: (8) HTN (hypertension) Code(s): I10 - ESSENTIAL (PRIMARY) HYPERTENSION Status: Chronic Qualifiers: Comment: Resume Carvedilol and multaq serial BP monitoring (9) PAD (peripheral artery disease) Code(s): I73.9 - PERIPHERAL VASCULAR DISEASE, UNSPECIFIED Status: Chronic - Plan cont current plan of care, plan discussed w/ family, PT/OT, home health care social worker, DVT proph w/SCDs * .
--- NOTE | 2018-10-03 15:16 | PRG ---
DATE OF SERVICE: 10/03/2018 SUBJECTIVE: A 73-year-old gentleman being seen for end-stage renal disease. The patient denies nausea, vomiting, or chest pain. OBJECTIVE: CONSTITUTIONAL: On examination, the patient is awake and alert. VITAL SIGNS: Temperature afebrile, pulse 75, breathing is 16, and blood pressure 136/67. GENERAL APPEARANCE AND MENTAL STATUS: Fair. HEAD/NECK: Normocephalic. Atraumatic. EYES: EOMI. No deformity. EARS: Clear. No ulcers. NOSE: Intact. No lesions. MOUTH: Clear. No discharge. THROAT: Clear. No exudate. LUNGS: Clear. No crackles. CARDIAC: S1, S2. No rub. ABDOMEN: Benign. Bowel sounds positive. GENITALIA/RECTUM: Howard absent. BACK/EXTREMITIES: Edema 0+. NEUROLOGICAL: Alert and motor intact. LABORATORY DATA: . ASSESSMENT AND PLAN: 1. , stable. 2. Hypertension, stable. 3. Anemia, stable. 4. Medications based on glomerular filtration rate are appropriate. Job ID: [id number]
--- NOTE | 2018-10-03 15:20 | PRG ---
DATE OF SERVICE: 10/03/2018 SUBJECTIVE: A 73-year-old gentleman, being seen for end-stage renal disease. The patient denies any nausea, vomiting, or chest pain. OBJECTIVE: CONSTITUTIONAL: Awake, alert, in no acute distress. VITAL SIGNS: Temperature afebrile. Pulse 66, breathing is 16, blood pressure 136/67. GENERAL APPEARANCE AND MENTAL STATUS: Fair. HEAD/NECK: Normocephalic. Atraumatic. EYES: EOMI. No deformity. EARS: Clear. No ulcers. NOSE: Intact. No lesions. MOUTH: Clear. No discharge. THROAT: Clear. No exudate. LUNGS: Clear. No crackles. CARDIAC: S1, S2. No rub. ABDOMEN: Benign. Bowel sounds positive. GENITALIA/RECTUM: Howard absent. BACK/EXTREMITIES: Edema 0+. NEUROLOGICAL: Alert and motor intact. LABORATORY DATA: Potassium 3.8, creatinine 1.6. ASSESSMENT AND PLAN: 1. Acute kidney injury, improved. 2. Hypertension, stable. 3. Anemia, stable. 4. Medications based on glomerular filtration rate are appropriate. 5. Uremia, improved. Will plan dialysis Thursday. Job ID: [id number]
[2018-10-03] MEDS ORDERED: Sodium Chloride 0.9% 500 ML IVPB SCH (16:45)
[2018-10-04] MEDS: Cefdinir 300 MG CAP PO SCH (09:14)
[2018-10-04] MEDS: Potassium Chloride 10 MEQ TAB PO SCH (09:14)
[2018-10-04] MEDS: Carvedilol 25 MG TAB PO SCH ×2 (09:14→20:35)
[2018-10-04] MEDS: hydrALAZINE 25 MG TAB PO SCH ×3 (09:14→20:35)
[2018-10-04] MEDS: Dronedarone HCl 400 MG TAB PO SCH ×2 (09:14→17:29)
--- NOTE | 2018-10-04 12:42 | PRG ---
DATE OF SERVICE: 10/04/2018 SUBJECTIVE: A 73-year-old gentleman being seen for end-stage renal disease. The patient denies any nausea, vomiting, or chest pain. OBJECTIVE: CONSTITUTIONAL: On examination, the patient is awake and alert, in no acute distress. VITAL SIGNS: Afebrile, pulse 70, breathing is 16, and blood pressure 129/65. GENERAL APPEARANCE AND MENTAL STATUS: Fair. HEAD/NECK: Normocephalic. Atraumatic. EYES: EOMI. No deformity. EARS: Clear. No ulcers. NOSE: Intact. No lesions. MOUTH: Clear. No discharge. THROAT: Clear. No exudate. LUNGS: Clear. No crackles. CARDIAC: S1, S2. No rub. ABDOMEN: Benign. Bowel sounds positive. GENITALIA/RECTUM: Howard absent. BACK/EXTREMITIES: Edema 0+. NEUROLOGICAL: Alert and motor intact. LABORATORY DATA: Labs show hemoglobin 10. Potassium 3.8, creatinine 1.6. ASSESSMENT AND PLAN: 1. Stage 6 chronic kidney disease, plan dialysis. 2. Hypertension, stable. 3. Anemia, stable. 4. Medications based on glomerular filtration rate are appropriate. The patient will have dialysis on October 06 and outpatient dialysis as ordered. Job ID: [id number]
--- NOTE | 2018-10-04 12:53 | PDOC.PN ---
- Subjective Encounter Start Date: 10/04/18 Encounter Start Time: 12:51 Subjective: FEELING BETTER AND STRONG, OFF OF NC OXYGEN - Objective Resuscitation Status - Order Detail: 10/02/18 11:19 Resuscitation Status Routine Resuscitation Status: PRTL: Intubate only Discussed with: PATIENT MAR Reviewed: Yes Vital Signs & Weight: Vital Signs (12 hours) Temp Pulse Resp BP BP BP Pulse Ox 10/04/18 11:43 98.5 F 65 18 117/59 L 100 10/04/18 09:14 70 129/65 10/04/18 07:55 93 L 10/04/18 07:54 99.8 F H 70 18 129/65 93 L 10/04/18 07:22 66 16 10/04/18 04:00 99.2 F 65 12 102/53 L 97 Weight Weight 119 lb 11.376 oz I&O: 10/03/18 10/04/18 10/05/18 06:59 06:59 06:59 Intake Total 1184 1910 240 Output Total 2775 3200 Balance -1591 -1290 240 Result Diagrams: 10/03/18 10:40 10/03/18 10:40 Phys Exam - Physical Examination HEENT: PERRLA, moist MMs, sclera anicteric, TM's clear, oral pharynx no lesions , 2+ tonsils Neck: no nodes, no JVD, supple, full ROM Respiratory: no wheezing, no rales, clear to auscultation bilateral Cardiovascular: RRR, no significant murmur Gastrointestinal: soft, non-tender, no distention Musculoskeletal: edema present Psychiatric: normal affect, A&O x 3 Skin: no rash, normal turgor, cap refill <2 seconds Dx/Plan (1) Acute and chronic respiratory failure Code(s): J96.20 - ACUTE AND CHR RESP FAILURE, UNSP W HYPOXIA OR HYPERCAPNIA Status: Acute Qualifiers: Respiratory failure complication: hypoxia Qualified Code(s): J96.21 - Acute and chronic respiratory failure with hypoxia Comment: Patient off of Bipap and NC oxygen, has agreed for intubation if required. S/P dialysis, breathing much better now (2) Acute on chronic diastolic CHF (congestive heart failure) Code(s): I50.33 - ACUTE ON CHRONIC DIASTOLIC (CONGESTIVE) HEART FAILURE Status : Acute Comment: EF 40-45%, severe AR, Severe TR. Continue carvedilol and dialysis (3) ESRD (end stage renal disease) Code(s): N18.6 - END STAGE RENAL DISEASE Status: Acute Comment: Patient restarted dialysis. Left AVG intact (4) Afib Code(s): I48.91 - UNSPECIFIED ATRIAL FIBRILLATION Status: Chronic Qualifiers: Atrial fibrillation type: paroxysmal Qualified Code(s): I48.0 - Paroxysmal atrial fibrillation Comment: Continue Multaq, WATCHMAN DEVICE PLACED PREVIOUSLY (5) CKD (chronic kidney disease), stage IV Code(s): N18.4 - CHRONIC KIDNEY DISEASE, STAGE 4 (SEVERE) Status: Chronic Comment: WORSENING RENAL FUNCTION. (6) Chronic anticoagulation Code(s): Z79.01 - NURSING HOME (CURRENT) USE OF ANTICOAGULANTS Status: Chronic Comment: WATCHMAN device no longer on any AC (7) HLD (hyperlipidemia) Code(s): E78.5 - HYPERLIPIDEMIA, UNSPECIFIED Status: Chronic Qualifiers: (8) HTN (hypertension) Code(s): I10 - ESSENTIAL (PRIMARY) HYPERTENSION Status: Chronic Qualifiers: Comment: Resume Carvedilol and multaq serial BP monitoring (9) PAD (peripheral artery disease) Code(s): I73.9 - PERIPHERAL VASCULAR DISEASE, UNSPECIFIED Status: Chronic - Plan cont current plan of care, plan discussed w/ family, PT/OT, socially responsible investment adviser, DVT proph w/SCDs Pending OP dialysis setup * .
--- NOTE | 2018-10-04 13:27 | PRG ---
DATE OF SERVICE: 10/04/2018 SERVICE: Pulmonary Medicine. INTERVAL HISTORY: The patient is doing fantastic from a respiratory standpoint. He is breathing comfortably. He did not use the BiPAP overnight. He has had dialysis x2. With this, he has had a profound improvement in his respiratory symptoms. If anything, he says he is back to normal. OBJECTIVE: VITAL SIGNS: Afebrile with a T-max of 99.8, pulse 65, blood pressure 117/59, respirations 18, saturation 100% on room air. GENERAL: The patient is awake, alert, in no apparent distress. LUNGS: Excellent air entry with no prolonged expiratory phase, wheezing, rhonchi, or crackles. HEART: Normal rate regular. ABDOMEN: Soft, nontender, and nondistended. Bowel sounds are positive. MUSCULOSKELETAL: No cyanosis or clubbing. There is no pitting in the bilateral lower extremities. NEUROLOGIC: Grossly nonfocal. LABORATORY DATA: Creatinine 1.62. Basic metabolic profile is otherwise unremarkable. Influenza A and B is negative. ASSESSMENT: 1. Acute hypoxic respiratory failure, resolved. 2. End-stage renal disease. 3. Volume overload. DISCUSSION AND PLAN: From my perspective, the patient is stable for transition back to the medical unit. When he arrives on the floor, have no further requirements for inpatient Pulmonary or Critical Care opinion, and I will sign off. Please call with additional questions or concerns moving forward. Job ID: [id number]
[2018-10-05] MEDS: Dronedarone HCl 400 MG TAB PO SCH ×2 (08:40→16:37)
[2018-10-05] MEDS: Potassium Chloride 10 MEQ TAB PO SCH (08:40)
[2018-10-05] MEDS: hydrALAZINE 25 MG TAB PO SCH ×3 (08:41→20:27)
[2018-10-05] MEDS: Carvedilol 25 MG TAB PO SCH ×2 (08:41→20:26)
[2018-10-05] MEDS: Cefdinir 300 MG CAP PO SCH (08:41)
[2018-10-05 09:12] LABS: Hemoglobin 9.2 g/dL (14.0-18.0)
[2018-10-05 09:42] LABS: Anion Gap 19 mmol/L (10-20); BUN (Urea Nitrogen) 72 mg/dL (8.4-25.7); Calc. Creatinine Clearance 15 mL/min (70-130); Calcium 9.5 mg/dL (7.8-10.44); Carbon Dioxide 23 mmol/L (23-31); Chloride 99 mmol/L (98-107); Estimated GFR-MDRD 16; Glucose 144 mg/dL (83-110); Potassium 3.7 mmol/L (3.5-5.1); Sodium 137 mmol/L (136-145)
--- NOTE | 2018-10-05 11:25 | PDOC.PN ---
- Subjective Encounter Start Date: 10/05/18 Encounter Start Time: 11:23 Subjective: BREATHING WELL, BACK TO BASELINE, READY TO GO HOME ONCE OP -: DIALYSIS IS SET UP - Objective Resuscitation Status - Order Detail: 10/02/18 11:19 Resuscitation Status Routine Resuscitation Status: PRTL: Intubate only Discussed with: PATIENT MAR Reviewed: Yes Vital Signs & Weight: Vital Signs (12 hours) Temp Pulse Resp BP BP Pulse Ox 10/05/18 11:17 97.5 F L 62 18 115/64 94 L 10/05/18 08:41 65 140/63 10/05/18 08:30 111/49 L 10/05/18 08:11 94 L 10/05/18 07:28 97.8 F 65 20 140/63 94 L 10/05/18 06:24 69 14 95 10/05/18 03:56 98.2 F 67 18 124/61 93 L 10/05/18 00:07 98.1 F 65 18 119/62 91 L Weight Weight 132 lb 14.4 oz I&O: 10/04/18 10/05/18 10/06/18 06:59 06:59 06:59 Intake Total 1910 1196 Output Total 3200 Balance -1290 1196 Result Diagrams: 10/05/18 08:48 10/05/18 08:48 Phys Exam - Physical Examination HEENT: PERRLA, moist MMs, sclera anicteric, TM's clear, oral pharynx no lesions , 2+ tonsils Neck: no nodes, no JVD, supple, full ROM Respiratory: no wheezing, no rales Cardiovascular: RRR +MUMMUR Gastrointestinal: soft, non-tender, no distention, positive bowel sounds Musculoskeletal: no edema, pulses present Neurological: non-focal, normal sensation, moves all 4 limbs Skin: no rash, normal turgor, cap refill <2 seconds Dx/Plan (1) Acute and chronic respiratory failure Code(s): J96.20 - ACUTE AND CHR RESP FAILURE, UNSP W HYPOXIA OR HYPERCAPNIA Status: Acute Qualifiers: Respiratory failure complication: hypoxia Qualified Code(s): J96.21 - Acute and chronic respiratory failure with hypoxia Comment: Patient off of Bipap and NC oxygen, has agreed for intubation if required. S/P dialysis, breathing much better now (2) Acute on chronic diastolic CHF (congestive heart failure) Code(s): I50.33 - ACUTE ON CHRONIC DIASTOLIC (CONGESTIVE) HEART FAILURE Status : Acute Comment: EF 40-45%, severe AR, Severe TR. Continue carvedilol and dialysis (3) ESRD (end stage renal disease) Code(s): N18.6 - END STAGE RENAL DISEASE Status: Acute Comment: Patient restarted dialysis. Left AVG intact. Pending OP dialysis (4) Afib Code(s): I48.91 - UNSPECIFIED ATRIAL FIBRILLATION Status: Chronic Qualifiers: Atrial fibrillation type: paroxysmal Qualified Code(s): I48.0 - Paroxysmal atrial fibrillation Comment: Continue Multaq, WATCHMAN DEVICE PLACED PREVIOUSLY (5) CKD (chronic kidney disease), stage IV Code(s): N18.4 - CHRONIC KIDNEY DISEASE, STAGE 4 (SEVERE) Status: Chronic Comment: WORSENING RENAL FUNCTION. (6) Chronic anticoagulation Code(s): Z79.01 - HALF-WAY (CURRENT) USE OF ANTICOAGULANTS Status: Chronic Comment: WATCHMAN device no longer on any AC (7) HLD (hyperlipidemia) Code(s): E78.5 - HYPERLIPIDEMIA, UNSPECIFIED Status: Chronic Qualifiers: (8) HTN (hypertension) Code(s): I10 - ESSENTIAL (PRIMARY) HYPERTENSION Status: Chronic Qualifiers: Comment: Resume Carvedilol and multaq serial BP monitoring (9) PAD (peripheral artery disease) Code(s): I73.9 - PERIPHERAL VASCULAR DISEASE, UNSPECIFIED Status: Chronic - Plan cont current plan of care, plan discussed w/ family, social work case manager, out of bed /ambulate DC home after OP dilaysis is set * .
--- NOTE | 2018-10-05 11:52 | PRG ---
DATE OF SERVICE: 10/05/2018 SUBJECTIVE: A 73-year-old gentleman being seen for end-stage renal disease. The patient denies any nausea, vomiting, or chest pain. OBJECTIVE: CONSTITUTIONAL: The patient is awake and alert. VITAL SIGNS: Afebrile, pulse 65, breathing 16, blood pressure 140/60. GENERAL APPEARANCE AND MENTAL STATUS: Fair. HEAD/NECK: Normocephalic. Atraumatic. EYES: EOMI. No deformity. EARS: Clear. No ulcers. NOSE: Intact. No lesions. MOUTH: Clear. No discharge. THROAT: Clear. No exudate. LUNGS: Clear. No crackles. CARDIAC: S1, S2. No rub. ABDOMEN: Benign. Bowel sounds positive. LABORATORY DATA: Labs show hemoglobin 9.2. Creatinine 3.8. ASSESSMENT: 1. Stage 6 chronic kidney disease, stable. 2. Hypertension, stable. 3. Anemia, stable. 4. Medications based on glomerular filtration rate are appropriate and dialysis tomorrow. Job ID: [id number]
[2018-10-06] MEDS: Potassium Chloride 10 MEQ TAB PO SCH ×2 (08:19→12:04)
[2018-10-06] MEDS: Dronedarone HCl 400 MG TAB PO SCH ×2 (08:19→17:02)
[2018-10-06] MEDS: hydrALAZINE 25 MG TAB PO SCH ×3 (08:20→20:07)
[2018-10-06] MEDS: Cefdinir 300 MG CAP PO SCH ×2 (08:20→12:04)
[2018-10-06] MEDS: Carvedilol 25 MG TAB PO SCH ×2 (08:20→20:08)
--- NOTE | 2018-10-06 11:42 | PRG ---
DATE OF SERVICE: 10/06/2018 SUBJECTIVE: A 73-year-old gentleman, being seen for end-stage renal disease. The patient denies any nausea, vomiting, or chest pain. OBJECTIVE: CONSTITUTIONAL: The patient is awake and alert. VITAL SIGNS: Afebrile, pulse 62, breathing 16, blood pressure 127/50. GENERAL APPEARANCE AND MENTAL STATUS: Fair. HEAD/NECK: Normocephalic. Atraumatic. EYES: EOMI. No deformity. EARS: Clear. No ulcers. NOSE: Intact. No lesions. MOUTH: Clear. No discharge. THROAT: Clear. No exudate. LUNGS: Clear. No crackles. CARDIAC: S1, S2. No rub. ABDOMEN: Benign. Bowel sounds positive. GENITALIA/RECTUM: Howard absent. BACK/EXTREMITIES: Edema 0+. NEUROLOGICAL: Alert and motor intact. SKIN: LYMPHATICS: LABORATORY DATA: Labs show hemoglobin 9.2. ASSESSMENT AND PLAN: 1. Stage 6 chronic kidney disease. Plan dialysis. 2. Hypertension, stable. 3. Anemia, stable. 4. Medications based on GFR, appropriate. Job ID: [id number]
--- NOTE | 2018-10-06 12:24 | PDOC.PN ---
- Subjective Encounter Start Date: 10/06/18 Encounter Start Time: 12:00 Subjective: Patient denies chest pain, sob, or other complaints. Awaiting O/P -: dialysis arrangements. - Objective Resuscitation Status - Order Detail: 10/02/18 11:19 Resuscitation Status Routine Resuscitation Status: PRTL: Intubate only Discussed with: PATIENT MAR Reviewed: Yes Vital Signs & Weight: Vital Signs (12 hours) Temp Pulse Resp BP BP Pulse Ox 10/06/18 08:20 66 10/06/18 07:29 98.0 F 66 18 127/50 L 95 10/06/18 06:51 95 10/06/18 06:49 76 16 94 L 10/06/18 04:00 99.4 F 69 16 125/63 94 L 10/06/18 02:13 94 L Weight Weight 119 lb 11.2 oz I&O: 10/05/18 10/06/18 10/07/18 06:59 06:59 06:59 Intake Total 1196 820 Balance 1196 820 Result Diagrams: 10/05/18 08:48 10/05/18 08:48 Phys Exam - Physical Examination Constitutional: NAD HEENT: moist MMs Respiratory: no wheezing, no rales, no rhonchi Cardiovascular: RRR, no significant murmur Gastrointestinal: soft, positive bowel sounds Neurological: non-focal, moves all 4 limbs Psychiatric: normal affect, A&O x 3 Dx/Plan (1) Acute and chronic respiratory failure Code(s): J96.20 - ACUTE AND CHR RESP FAILURE, UNSP W HYPOXIA OR HYPERCAPNIA Status: Acute Qualifiers: Respiratory failure complication: hypoxia Qualified Code(s): J96.21 - Acute and chronic respiratory failure with hypoxia Comment: Patient off of Bipap and NC oxygen, has agreed for intubation if required. S/P dialysis, breathing much better now (2) Acute on chronic diastolic CHF (congestive heart failure) Code(s): I50.33 - ACUTE ON CHRONIC DIASTOLIC (CONGESTIVE) HEART FAILURE Status : Acute Comment: EF 40-45%, severe AR, Severe TR. Continue carvedilol and dialysis (3) ESRD (end stage renal disease) Code(s): N18.6 - END STAGE RENAL DISEASE Status: Acute Comment: Patient restarted dialysis. Left AVG intact. Pending OP dialysis (4) Afib Code(s): I48.91 - UNSPECIFIED ATRIAL FIBRILLATION Status: Chronic Qualifiers: Atrial fibrillation type: paroxysmal Qualified Code(s): I48.0 - Paroxysmal atrial fibrillation Comment: Continue Multaq, WATCHMAN DEVICE PLACED PREVIOUSLY (5) HLD (hyperlipidemia) Code(s): E78.5 - HYPERLIPIDEMIA, UNSPECIFIED Status: Chronic Qualifiers: (6) HTN (hypertension) Code(s): I10 - ESSENTIAL (PRIMARY) HYPERTENSION Status: Chronic Qualifiers: Comment: Resume Carvedilol and multaq serial BP monitoring (7) PAD (peripheral artery disease) Code(s): I73.9 - PERIPHERAL VASCULAR DISEASE, UNSPECIFIED Status: Chronic - Plan cont current plan of care Awaiting OP Dialysis placement, then can d/c home * . - Discharge Day Encounter end time: 12:15
--- NOTE | 2018-10-06 16:48 | PQF ---
JONI HORAN JR, RYAN ANDREW MD [id number] CLINICAL DOCUMENTATION IMPROVEMENT CLARIFICATION FORM: ICD-10 Updated PLEASE DO AN ADDENDUM TO THE PROGRESS NOTE WITH ANY DOCUMENTATION UPDATES OR ADDITIONS AND CARRY THROUGH TO DC SUMMARY. THANK YOU. DATE: 10-06-18 ATTN: DR. KHOURY Please exercise your independent, professional judgment in responding to the clarification form. Clinical indicators are provided on the bottom of this form for your review Please check appropriate box(s) to clarify if the following diagnosis has been ruled in or ruled out: PNEUMONIA [ ] Ruled in diagnosis [ ] Continue to treat [ ] Resolved [ X ] Ruled out diagnosis [ ] Cannot rule out diagnosis [ ] Other diagnosis [ ] Unable to determine In addition, please specify: Present on Admission (POA): [ ] Yes [ ] No [ ] Unable to determine For continuity of documentation, please document condition throughout progress notes and discharge summary. Thank You. CLINICAL INDICATORS - SIGNS / SYMPTOMS / LABS 10-01 CXR: DIFFUSE AIR SPACE OPACITIES THROUGHOUT THE LUNGS, SUGGESTING MULTIFOCAL PNA. THIS IS SUPERIMPOSED ON LIKELY EDEMA AND CHF. 10-01 ([facility]): PNA 10-02 ([facility]) POSSIBLY SUPERIMPOSED PNA RISK FACTORS ED: BREATH SOUNDS W/ RALES TO LLL AND RLL, RESPIRATORY ASSESSMENT EFFORT, TACHYPNEIC, DYSPNEIC IN SHORT PHRASES H&P: INCREASING SOB / ACUTE ON CHRONIC DIASTOLIC CHF/ MICAELA ON CKD TREATMENTS MAR: ROCEPHIN IV 10-01 - 10-03 OMNICEF PO 10-04 TO PRESENT THANK YOU, CAROL (This form is maintained as a part of the permanent medical record) 2014 [employer]. All Rights Reserved Carol Costa RN, BS [email or web address]
--- NOTE | 2018-10-07 07:50 | PDOC.PN ---
- Subjective Encounter Start Date: 10/07/18 Encounter Start Time: 15:00 Subjective: Denies CP/SOB. No other complaints. Awaiting O/P dialysis -: placement. - Objective Resuscitation Status - Order Detail: 10/02/18 11:19 Resuscitation Status Routine Resuscitation Status: PRTL: Intubate only Discussed with: PATIENT MAR Reviewed: Yes Vital Signs & Weight: Vital Signs (12 hours) Temp Pulse Resp BP BP BP Pulse Ox 10/07/18 07:43 97.9 F 69 18 131/52 L 97 10/07/18 06:34 95 10/07/18 06:32 70 16 95 10/07/18 04:00 99.1 F 67 16 125/50 L 94 L 10/07/18 00:28 70 12 10/07/18 00:00 98.9 F 71 16 112/50 L 97 10/06/18 20:07 73 109/50 L 10/06/18 20:00 97 10/06/18 19:53 97.8 F 72 18 109/58 L 98 Weight Weight 121 lb 11.123 oz I&O: 10/06/18 10/07/18 10/08/18 06:59 06:59 06:59 Intake Total 820 640 Balance 820 640 Result Diagrams: 10/05/18 08:48 10/05/18 08:48 Phys Exam - Physical Examination Constitutional: NAD HEENT: moist MMs Respiratory: no wheezing, no rales, no rhonchi Cardiovascular: RRR Gastrointestinal: soft, positive bowel sounds Neurological: non-focal, moves all 4 limbs Psychiatric: normal affect, A&O x 3 Dx/Plan (1) Acute and chronic respiratory failure Code(s): J96.20 - ACUTE AND CHR RESP FAILURE, UNSP W HYPOXIA OR HYPERCAPNIA Status: Acute Qualifiers: Respiratory failure complication: hypoxia Qualified Code(s): J96.21 - Acute and chronic respiratory failure with hypoxia Comment: Patient off of Bipap and NC oxygen, has agreed for intubation if required. S/P dialysis, breathing back to baseline now, pneumonia ruled out, will discontinue antibiotics tomorrow (2) Acute on chronic diastolic CHF (congestive heart failure) Code(s): I50.33 - ACUTE ON CHRONIC DIASTOLIC (CONGESTIVE) HEART FAILURE Status : Acute Comment: EF 40-45%, severe AR, Severe TR. Continue carvedilol and dialysis (3) ESRD (end stage renal disease) Code(s): N18.6 - END STAGE RENAL DISEASE Status: Acute Comment: Patient restarted dialysis. Left AVG intact. Pending OP dialysis (4) Afib Code(s): I48.91 - UNSPECIFIED ATRIAL FIBRILLATION Status: Chronic Qualifiers: Atrial fibrillation type: paroxysmal Qualified Code(s): I48.0 - Paroxysmal atrial fibrillation Comment: Continue Multaq, WATCHMAN DEVICE PLACED PREVIOUSLY (5) HLD (hyperlipidemia) Code(s): E78.5 - HYPERLIPIDEMIA, UNSPECIFIED Status: Chronic Qualifiers: (6) HTN (hypertension) Code(s): I10 - ESSENTIAL (PRIMARY) HYPERTENSION Status: Chronic Qualifiers: Comment: Resume Carvedilol and multaq serial BP monitoring (7) PAD (peripheral artery disease) Code(s): I73.9 - PERIPHERAL VASCULAR DISEASE, UNSPECIFIED Status: Chronic - Plan cont current plan of care * . - Discharge Day Encounter end time: 09:30
[2018-10-07] MEDS: hydrALAZINE 25 MG TAB PO SCH ×3 (08:16→20:00)
[2018-10-07] MEDS: Potassium Chloride 10 MEQ TAB PO SCH (08:17)
[2018-10-07] MEDS: Carvedilol 25 MG TAB PO SCH ×2 (08:17→20:01)
[2018-10-07] MEDS: Cefdinir 300 MG CAP PO SCH (08:17)
[2018-10-07] MEDS: Dronedarone HCl 400 MG TAB PO SCH ×2 (08:17→17:40)
--- NOTE | 2018-10-07 10:58 | PRG ---
DATE OF SERVICE: 10/07/2018 SUBJECTIVE: This morning, he is much better. Less short of breath. OBJECTIVE: VITAL SIGNS: Sats are 97% room air. , temperature 97, . CHEST: Decreased breath sounds without any wheezing. CARDIAC: Normal S1, S2. No gallops. ABDOMEN: No masses. IMPRESSION: 1. Chronic renal failure. 2. Bilateral pleural effusion. 3. Hypertension. PLAN: Pulmonary espinal, continue present treatment. Continue dialysis. Baseline chest x-ray. DISPOSITION: As per the primary care physician. Job ID: [id number]
--- NOTE | 2018-10-07 11:49 | PRG ---
DATE OF SERVICE: 10/07/2018 SUBJECTIVE: A 73-year-old gentleman, being seen for end-stage renal disease. The patient denied any nausea, vomiting, or chest pain. OBJECTIVE: CONSTITUTIONAL: The patient is awake and alert. VITAL SIGNS: Afebrile, pulse 69, breathing 16, blood pressure 119/63. GENERAL APPEARANCE AND MENTAL STATUS: Fair. HEAD/NECK: Normocephalic and atraumatic. EYES: EOMI. No deformity. EARS: Clear. No ulcers. NOSE: Intact. No lesions. MOUTH: Clear. No discharge. THROAT: Clear. No exudate. LUNGS: Clear. No crackles. CARDIAC: S1 and S2. No rub. ABDOMEN: Benign. Bowel sounds positive. GENITALIA/RECTUM: Howard absent. BACK/EXTREMITIES: Edema 0+. NEUROLOGICAL: Alert and motor intact. LABORATORY DATA: Hemoglobin 9.2. ASSESSMENT AND PLAN: 1. Stage 6 chronic kidney disease. Continue dialysis. 2. Hypertension, stable. 3. Anemia, stable. 4. Medications based on glomerular filtration rate, appropriate. Job ID: [id number]
--- NOTE | 2018-10-07 12:12 | RAD ---
CHEST ONE VIEW: History: CHF. Comparison: 10-01-18 FINDINGS: Cardiac silhouette remains enlarged. Pulmonary vasculature now at the limits of normal in prominence. Mediastinum is midline. Minimal right pleural fluid. Hiatal hernia now more visible. No evidence of pneumothorax. IMPRESSION: 1. Significant interval improvement. Minimal pulmonary vascular congestion. 2. Cardiomegaly. 3. Hiatal hernia. POS: [facility]
[2018-10-08 07:28] VITALS: TEMP 97.9
--- NOTE | 2018-10-08 08:03 | PDOC.PN ---
- Subjective Encounter Start Date: 10/08/18 Encounter Start Time: 12:00 Subjective: Patient without complaint today. Dialysis set up and ready to go home. - Objective Resuscitation Status - Order Detail: 10/02/18 11:19 Resuscitation Status Routine Resuscitation Status: PRTL: Intubate only Discussed with: PATIENT NILESH Reviewed: Yes Vital Signs & Weight: Vital Signs (12 hours) Temp Pulse Resp BP Pulse Ox 10/08/18 07:27 97.9 F 68 20 145/71 H 96 10/08/18 07:11 66 16 10/08/18 01:03 68 16 98 Weight Weight 122 lb 3.2 oz I&O: 10/07/18 10/08/18 10/09/18 06:59 06:59 06:59 Intake Total 640 885 Balance 640 885 Result Diagrams: 10/05/18 08:48 10/05/18 08:48 Phys Exam - Physical Examination Constitutional: NAD HEENT: moist MMs Respiratory: no wheezing, no rales, no rhonchi Cardiovascular: RRR, no significant murmur Gastrointestinal: soft, positive bowel sounds Neurological: non-focal, moves all 4 limbs Psychiatric: normal affect, A&O x 3 Dx/Plan (1) Acute and chronic respiratory failure Code(s): J96.20 - ACUTE AND CHR RESP FAILURE, UNSP W HYPOXIA OR HYPERCAPNIA Status: Acute Qualifiers: Respiratory failure complication: hypoxia Qualified Code(s): J96.21 - Acute and chronic respiratory failure with hypoxia Comment: Patient off of Bipap and NC oxygen, has agreed for intubation if required. S/P dialysis, breathing back to baseline now, pneumonia ruled out, will discontinue antibiotics tomorrow (2) Acute on chronic diastolic CHF (congestive heart failure) Code(s): I50.33 - ACUTE ON CHRONIC DIASTOLIC (CONGESTIVE) HEART FAILURE Status : Acute Comment: EF 40-45%, severe AR, Severe TR. Continue carvedilol and dialysis (3) ESRD (end stage renal disease) Code(s): N18.6 - END STAGE RENAL DISEASE Status: Acute Comment: Patient restarted dialysis. Left AVG intact. Pending OP dialysis (4) Afib Code(s): I48.91 - UNSPECIFIED ATRIAL FIBRILLATION Status: Chronic Qualifiers: Atrial fibrillation type: paroxysmal Qualified Code(s): I48.0 - Paroxysmal atrial fibrillation Comment: Continue Multaq, WATCHMAN DEVICE PLACED PREVIOUSLY (5) HLD (hyperlipidemia) Code(s): E78.5 - HYPERLIPIDEMIA, UNSPECIFIED Status: Chronic Qualifiers: (6) HTN (hypertension) Code(s): I10 - ESSENTIAL (PRIMARY) HYPERTENSION Status: Chronic Qualifiers: Comment: Resume Carvedilol and multaq serial BP monitoring (7) PAD (peripheral artery disease) Code(s): I73.9 - PERIPHERAL VASCULAR DISEASE, UNSPECIFIED Status: Chronic - Plan cont current plan of long-term today with outpatient dialysis * . - Discharge Day Encounter end time: 12:30
[2018-10-08] MEDS: Dronedarone HCl 400 MG TAB PO SCH (08:58)
[2018-10-08] MEDS: hydrALAZINE 25 MG TAB PO SCH (08:59)
[2018-10-08] MEDS: Carvedilol 25 MG TAB PO SCH (08:59)
[2018-10-08] MEDS: Potassium Chloride 10 MEQ TAB PO SCH (12:18)
[2018-10-08] MEDS: Cefdinir 300 MG CAP PO SCH (12:19)
[2018-10-08 12:21] VITALS: BP 144/68
--- NOTE | 2018-10-08 15:28 | PRG ---
DATE OF SERVICE: SUBJECTIVE: A 73-year-old gentleman being seen for end-stage renal disease. The patient denied any nausea, vomiting, or chest pain. OBJECTIVE: VITAL SIGNS: Temperature afebrile, pulse 68, breathing 16, blood pressure 154/68. Awake, alert, in no acute distress. GENERAL APPEARANCE AND MENTAL STATUS: Fair. HEAD/NECK: Normocephalic. Atraumatic. EYES: EOMI. No deformity. EARS: Clear. No ulcers. NOSE: Intact. No lesions. MOUTH: Clear. No discharge. THROAT: Clear. No exudate. LUNGS: Clear. No crackles. CARDIAC: S1, S2. No rub. ABDOMEN: Benign. Bowel sounds positive. GENITALIA/RECTUM: Howard absent. BACK/EXTREMITIES: Edema 0+. NEUROLOGICAL: Alert and motor intact. SKIN: LYMPHATICS: LABS SHOW: Hemoglobin 9.2, creatinine 6.8. ASSESSMENT AND PLAN: 1. Stage 6 chronic kidney disease. Continue dialysis. 2. Hypertension, stable. 3. Anemia, stable. 4. Medications based on glomerular filtration rate, appropriate. Job ID: [id number]
--- NOTE | 2018-10-09 04:00 | DIS ---
DATE OF ADMISSION: 10/01/2018 DATE OF DISCHARGE: 10/08/2018 PRIMARY CARE PHYSICIAN: Osmani Gage MD REASON FOR ADMISSION: Congestive heart failure exacerbation. DIAGNOSES AT DISCHARGE: 1. Acute on chronic respiratory failure, pneumonia ruled out. 2. Acute on chronic diastolic congestive heart failure. 3. End-stage renal disease, restarting dialysis. 4. Atrial fibrillation. 5. Hyperlipidemia. 6. Hypertension. 7. Peripheral artery disease. CONSULTATIONS: 1. Nephrology, Dr. Ruiz. 2. Cardiology, Dr. Kenyon. 3. Pulmonology, Dr. Gonzáles. PROCEDURES: Transthoracic echocardiogram showing an ejection fraction of 40% to 45%. SUMMARY OF HOSPITAL COURSE: This is a 73-year-old gentleman with a history of diastolic congestive heart failure and end-stage renal disease, came in with a 1 day of shortness of breath. He was found to be volume overloaded. There was also some question about a possibility of a pneumonia on his chest x-ray. The patient was admitted, given IV Lasix and fluid restriction. Eventually, he required dialysis again. He did require a BiPAP temporarily, but eventually was able to be weaned off that after dialysis. His symptoms resolved with fluid removal, so Dr. Gonzáles felt that this was not a pneumonia and backed off on his antibiotics. The patient did well during the hospitalization. He eventually was able to get outpatient dialysis arranged and he is discharging home. DISCHARGE MANAGEMENT: Discharged home. Follow up with dialysis here in [place]. Also follow up with Dr. Gage and Dr. Oneil as an outpatient. ACTIVITY: As tolerated. DIET: Renal with sodium and fluid restricted diet. DISCHARGE MEDICATIONS: 1. Aspirin 81 mg daily. 2. Carvedilol 25 mg twice a day. 3. Multaq 400 mg twice a day. 4. Hydralazine 100 mg 3 times a day. 5. Potassium chloride 10 mEq daily. 6. Amlodipine 5 mg daily. 7. Atorvastatin 20 mg daily. 8. Clopidogrel 75 mg daily. 9. Vitamin B12 1000 mcg daily. 10. Osteo Bi-Flex 1 tablet daily. 11. Integra iron and vitamin 1 cap twice a day. 12. MiraLax 1 pack daily. 13. Zolpidem 5 mg at night as needed. Job ID: [id number]
--- NOTE | 2018-10-09 17:32 | EKG ---
Test Reason : SOB Blood Pressure : / mmHG Vent. Rate : 081 BPM Atrial Rate : 081 BPM P-R Int : 180 ms QRS Dur : 094 ms QT Int : 462 ms P-R-T Axes : 020 000 035 degrees QTc Int : 536 ms Sinus rhythm with Premature atrial complexes with Abberant conduction Possible Left atrial enlargement ST depression, consider subendocardial injury or digitalis effect Nonspecific T wave abnormality Prolonged QT Abnormal ECG Confirmed by AP PAN, DELORES ([id number]), food editor JEREMY MCDONNELL ([id number]) on 10/09/2018 5:32:14 PM Referred By: Confirmed By:DELORES DE SOUZA MD
== END 2018-10-08 15:00 | disposition home or self-care (01) | DRG 291 ==
LOC: ERS 08:34 → ERHOLD 10:29 → 2NO 14:19 → IMCU/EMU 17:04 → T4-B 10-04 15:12
PROVIDERS: ADMIT Family Medicine; ATTEND Family Medicine
PROC: 5A1D70Z Performance of Urinary Filtration, Intermittent, Less than 6 Hours Per Day (ICD-10-PCS; principal; 2018-10-01)
PROC: 5A09357 Assistance with Respiratory Ventilation, Less than 24 Consecutive Hours, Continuous Positive Airway Pressure (ICD-10-PCS; 2018-10-01)
DX: I13.2 Hypertensive heart and chronic kidney disease with heart failure and with stage 5 chronic kidney disease, or end stage renal disease (principal); I50.33 Acute on chronic diastolic (congestive) heart failure; N18.6 End stage renal disease; J96.21 Acute and chronic respiratory failure with hypoxia; N17.9 Acute kidney failure, unspecified; I25.10 Atherosclerotic heart disease of native coronary artery without angina pectoris; I49.3 Ventricular premature depolarization; D64.9 Anemia, unspecified; J44.9 Chronic obstructive pulmonary disease, unspecified; E87.6 Hypokalemia; Z88.8 Allergy status to other drugs, medicaments and biological substances; I48.0 Paroxysmal atrial fibrillation; Z66 Do not resuscitate; Z99.2 Dependence on renal dialysis; E78.5 Hyperlipidemia, unspecified; Z87.891 Personal history of nicotine dependence; I35.0 Nonrheumatic aortic (valve) stenosis
CPT/HCPCS: 36415; 71045; 80048; 80053; 82550; 83605; 83880; 84484; 85014; 85018; 85025; 86704; 86706; 86803; 87340; 87804; 90935; 93005; 93306; 93798; 94640; 94660; 96365; 96375; G0257; J0696; J1940; J7050; J7620

== ENCOUNTER 2018-10-14 11:17 | Observation (INO) | payer MEDICARE, OTHER ==
[2018-10-14] MEDS ORDERED: HYDROcodone/Acetaminophen 5/325 mg Tablet ONE (11:34)
[2018-10-14 11:59] LABS: #Basophils 0.1 thou/uL (0.0-0.2); #Eosinphils 0.4 thou/uL (0.0-0.7); #Lymphocytes 1.3 thou/uL (1.20-3.40); #Monocytes 1.1 thou/uL (0.11-0.59); #Neutrophils 4.7 thou/uL (1.40-6.50); %Basophils 1.2 % (0.0-1.0); %Eosinophils 5.5 % (0.0-10.0); %Lymphocytes 16.6 % (21.0-51.0); %Monocytes 14.1 % (0.0-10.0); %Neutrophils 62.7 % (42.0-75.0); Hemoglobin 8.9 g/dL (14.0-18.0); Mean Corpuscular HGB CONC 31.7 g/dL (32.0-36.0); Mean Corpuscular Hemoglobin 25.7 pg (27.0-31.0); Mean Corpuscular Volume 81.1 fL (78.0-98.0); Mean Platelet Volume 8.4 fL (7.4-10.4); Platelet Count 212 thou/uL (130-400); RBC Distribution Width 17.9 % (11.5-14.5); Red Blood Cell (RBC) Count 3.46 mill/uL (4.70-6.10); White Blood Cell (WBC) Count 7.5 thou/uL (4.8-10.8)
[2018-10-14 12:09] LABS: INR-International Normal Ratio 1.2; Prothrombin Time 14.9 SEC (12.0-14.7)
[2018-10-14 12:20] LABS: ALT (SGPT) 21 U/L (8-55); AST (SGOT) 21 U/L (5-34); Albumin 3.2 g/dL (3.4-4.8); Alkaline Phosphatase 101 U/L (40-150); Anion Gap 13 mmol/L (10-20); BUN (Urea Nitrogen) 46 mg/dL (8.4-25.7); Bilirubin, Total 0.5 mg/dL (0.2-1.2); Calc. Creatinine Clearance 0 mL/min (70-130); Calcium 9.5 mg/dL (7.8-10.44); Carbon Dioxide 23 mmol/L (23-31); Chloride 106 mmol/L (98-107); Estimated GFR-MDRD 22; Globulin 4.4 g/dL (2.4-3.5); Glucose 86 mg/dL (83-110); Potassium 4.3 mmol/L (3.5-5.1); Protein, Total 7.6 g/dL (5.8-8.1); Sodium 138 mmol/L (136-145)
--- NOTE | 2018-10-14 12:37 | CON ---
DATE OF CONSULTATION: NEPHROLOGY CONSULT REASON FOR CONSULTATION: End-stage kidney disease. HISTORY OF PRESENT ILLNESS: This is a 73-year-old gentleman who presented to the hospital after missing dialysis due to inability to access the cath, had a fistula. The patient denies any nausea, vomiting, or chest pain. PAST MEDICAL HISTORY: Significant for hypertension, diabetes mellitus, AV fistula, tunneled dialysis catheter, carotid endarterectomy, uremia, respiratory failure, SOCIAL HISTORY: No tobacco, alcohol, or drug use. FAMILY HISTORY: Negative for ESRD. ALLERGIES: REVIEWED. HOME MEDICATIONS: Reviewed. REVIEW OF SYSTEMS: A 15-point review of systems was performed and was negative except for positives noted above. GENERAL: HEAD: NECK: No swelling or lumps. NOSE: No epistaxis or discharge. EYES: No diplopia or pain. RESPIRATORY: CARDIOVASCULAR: GASTROINTESTINAL: /SLIVER LAP MACHINE TENDER: MUSCULOSKELETAL: No joint pain. NEUROPSYCHIATRIC SYSTEMS: No suicidal ideation. No ideation. SKIN: Denies any rash or ulcer. CONSTITUTIONAL: No fever or chills. LABORATORY DATA: Pending. ASSESSMENT AND PLAN: 1. Stage 6 chronic kidney disease with failed access. I will try to cannulate access. If failure, we will consult Surgery. 2. Hypertension, atenolol. 3. Medication based on glomerular filtration rate, appropriate. 4. Anemia. We will follow hemoglobin. Job ID: [id number]
[2018-10-14] MEDS ORDERED: Ondansetron ODT 4 MG TAB SL PRN (16:20)
[2018-10-14] MEDS ORDERED: Acetaminophen 325 MG TAB PO PRN (16:20)
[2018-10-14] MEDS ORDERED: Ondansetron PF 4 MG/2 ML Vial IVP PRN (16:20)
[2018-10-14 16:51] VITALS: BMI 22.2
[2018-10-14] MEDS ORDERED: HYDROcodone/Acetaminophen 5/325 mg Tablet PO PRN ×2 (18:10)
[2018-10-14] MEDS ORDERED: Zolpidem Tartrate 5 MG TAB PO PRN (18:10)
[2018-10-14] MEDS ORDERED: Polyethylene Glycol 3350 17 GM Packet PO PRN (18:14)
[2018-10-14] MEDS ORDERED: Dronedarone HCl 400 MG TAB PO SCH (18:30)
[2018-10-14] MEDS ORDERED: Atorvastatin Calcium 20 MG TAB PO SCH (21:00)
[2018-10-14] MEDS: Carvedilol 25 MG TAB PO SCH (21:11)
--- NOTE | 2018-10-14 22:58 | HP ---
PRIMARY CARE PHYSICIAN: Dr. Gage. DISPLAY SCREEN FABRICATOR: Dr. Chacon. CHIEF COMPLAINT: Dialysis shunt is infiltrated. HISTORY OF PRESENT ILLNESS: This is a very pleasant 73-year-old male who reported to the ER today after his dialysis shunt in his left arm has been unable to be used due to being infiltrated for the last 3 attempts. When it happened Thursday and happened again today, he reported to the emergency room to have it checked out. The patient was recently discharged from this facility on 10/08/2018 after being treated for acute on chronic respiratory and diastolic congestive heart failure. He had end-stage renal disease and they restarted his dialysis during that hospitalization. Fistula was accessed, the patient reports 5 times, during his hospitalization without difficulty, but when he attempted to go to dialysis as an outpatient, it infiltrated. He is supposed to have dialysis on Thursday, Thursday, and Thursday. He was unable to go yesterday, went today and the fistula infiltrated again today. Dr. Chacon, the patient's technicians and trades workers and Dr. Ruiz saw the patient in the emergency room and arranged for Dr. Zaragoza to place a temporary dialysis catheter during this hospitalization. At which point, he will most likely undergo dialysis after placement. The patient admitted to the observation unit for urgent dialysis catheter placement and subsequent dialysis. PAST MEDICAL HISTORY: Significant for coronary artery disease, peripheral vascular disease, hypertension, atrial fib, hyperlipidemia, chronic end-stage renal failure, and diastolic heart failure. PAST SURGICAL HISTORY: Significant for Watchman device it was placed in 2018, carotid endarterectomy, stenting of peripheral vessel in the lower left extremity, left upper extremity fistula, dialysis port to the chest wall, which has been removed due to infection concerns. PSYCHIATRIC HISTORY: None. SOCIAL HISTORY: The patient lives at home independently. Occasional alcohol use. Denies any drug or smoking history. ALLERGIES: ALLERGIC TO GABAPENTIN AND LISINOPRIL. REVIEW OF SYSTEMS: CONSTITUTIONAL: The patient denies any chest pain or fever. Denies chills. HEENT: Denies headache. Denies any injury or trauma to the head. Denies any change in vision. Denies sore throat. RESPIRATORY: Denies any shortness of breath. Denies cough. CARDIOVASCULAR: Denies any chest pain or palpitations. GI: Denies any abdominal pain, constipation, diarrhea, nausea, or vomiting. : Denies any dysuria or hematuria. MUSCULOSKELETAL: Complains of increasing swelling of the lower extremities. Reports pain at the dialysis site in the lower left arm. NEUROLOGIC: Denies any headache, dizziness, or focal deficits. PSYCHIATRIC: Negative. PHYSICAL EXAMINATION: VITAL SIGNS: Temperature is 97.5, pulse is 67, respirations 21, O2 saturations are 92% on 2 L, and blood pressure 163/77. CONSTITUTIONAL: The patient is nontoxic appearing, is in mild pain distress. HEAD: Atraumatic and normocephalic. EYES: Eyelids are normal to inspection. Pupils are equally round and reactive to light. ENT: Mucous membranes are moist. Mouth exam is normal. NECK: Normal range of motion. Trachea is midline. RESPIRATORY/CHEST: Breath sounds are clear. Faint rales noted at bases. CARDIOVASCULAR: Heart sounds are normal. Regular rate and rhythm. ABDOMEN: Nontender. Bowel sounds are heard. BACK: Normal findings. Normal inspection. Nontender. EXTREMITIES: Upper extremity, left forearm with swelling, tenderness, bruit is heard. Lower extremity, normal inspection. Motor strength is normal. No edema is noted. Pedal pulses equal bilaterally. NEUROLOGIC: The patient is alert and oriented to person, place, and time. No motor or sensory deficits. SKIN: Warm, dry, and normal in color. There is edema and tenderness to the dialysis site on left lower extremity. LABORATORY DATA: Sodium 138, potassium 4.3, chloride 106, carbon dioxide 23, gap is 13, BUN is 46, creatinine is 2.8, estimated GFR is 22, glucose 86, and calcium 9.5. Troponin x1 is undetectable. Albumin is 3.2, globulin 4.4. Other liver enzymes are unremarkable. PT 14.9, INR 1.2, and APTT is 38. White blood cell count is 7.5, hemoglobin 8.9, hematocrit 28.1, and platelet count 212. A fistula study of the left arm has been ordered, but not done by imaging at this point. ASSESSMENT AND PLAN: 1. Infiltrated dialysis site. Plan, alternative dialysis catheter to be placed by Dr. Zaragoaz followed by dialysis as directed by Dr. Ruiz. 2. Hypertension. We will continue home medications. We will continue to monitor. 3. Anticoagulation per family. Plavix has been discontinued, but they have not started the Eliquis as requested. We will initiate that when family can give us a correct dose. Hospital course will be dependent on clinical findings. Job ID: [id number]
--- NOTE | 2018-10-15 01:20 | HP ---
HISTORY OF PRESENT ILLNESS: Pipo Goins is a 73-year-old male patient, dialyzes Thursday, Thursday, and Thursday, who has WATCHMAN device, and in August 2017, I have placed a left arm Wellington fistula. He had a dysfunctional catheter that they used this fistula for dialysis access earlier this year before I removed his catheter. Apparently, he did not need dialysis while, but now presented back for dialysis and has experienced a hematoma infiltration in the left forearm. Dr. Ruiz has asked me to see him regarding placement of a hemodialysis catheter to rest the left arm fistula to give it time to recover. HOME MEDICATIONS: 1. MiraLAX. 2. B12. 3. Plavix. 4. Aspirin. 5. Potassium. 6. Multaq. 7. Amlodipine. 8. Iron. 9. Carvedilol. 10. Atorvastatin. 11. Glucosamine. PAST SURGICAL HISTORY: On 04/29/2016, right carotid endarterectomy; 06/27/2016, Dr. Beebe, left carotid endarterectomy; 08/28/2017, Dr. Zaragoza performed placement of a hemodialysis catheter and central line; 08/31/2017, the patient had a left arm fistula; on 12/20/2017, he had removal of his hemodialysis catheter in the hospital. His renal function had improved and he no longer needed dialysis for a period of time. On 04/18/2018, Dr. Ervin Phan performed an upper and lower endoscopy; and Dr. Oneil on 08/25/2018, placed a WATCHMAN device for moderate to severe aortic stenosis. PAST MEDICAL HISTORY: Coronary artery disease, PAD, hypertension, atrial fibrillation, WATCHMAN device, hyperlipidemia. SOCIAL HISTORY: Tobacco, none. Alcohol, none. PHYSICAL EXAMINATION: VITAL SIGNS: Height 5 foot 5 inches, weight 133 pounds, 22 BMI. Temperature 97.5, heart rate 67, blood pressure 163/77. HEAD, EARS, EYES, NOSE, AND THROAT: Unremarkable. LUNGS: Clear to auscultation. CARDIAC: Regular rate and rhythm without murmur or gallop. ABDOMEN: Soft and nontender. EXTREMITIES: Unremarkable. Left arm fistula, good thrill and bruit with infiltration hematoma. EXTREMITIES: Unremarkable. ASSESSMENT AND PLAN: Left forearm fistula infiltration hematoma. I would recommend placement of a hemodialysis catheter to rest the fistula until it recovers from recent infiltration. Hopefully, this catheter could be removed in the future. I do not think a fistulogram is necessary now. We would hold off doing that as it would not change things, can check a fistulogram in the future pending resolution of the hematoma. Job ID: [id number]
[2018-10-15 06:07] LABS: #Basophils 0.1 thou/uL (0.0-0.2); #Eosinphils 0.3 thou/uL (0.0-0.7); #Monocytes 0.8 thou/uL (0.11-0.59); #Neutrophils 3.9 thou/uL (1.40-6.50); %Eosinophils 5.6 % (0.0-10.0); %Lymphocytes 16.2 % (21.0-51.0); %Monocytes 12.7 % (0.0-10.0); %Neutrophils 64.4 % (42.0-75.0); Hemoglobin 8.1 g/dL (14.0-18.0); Mean Corpuscular HGB CONC 31.3 g/dL (32.0-36.0); Mean Corpuscular Hemoglobin 25.7 pg (27.0-31.0); Mean Corpuscular Volume 82.1 fL (78.0-98.0); Mean Platelet Volume 8.6 fL (7.4-10.4); Platelet Count 179 thou/uL (130-400); RBC Distribution Width 17.3 % (11.5-14.5); Red Blood Cell (RBC) Count 3.14 mill/uL (4.70-6.10)
[2018-10-15 06:29] LABS: ALT (SGPT) 15 U/L (8-55); AST (SGOT) 17 U/L (5-34); Albumin 2.9 g/dL (3.4-4.8); Alkaline Phosphatase 88 U/L (40-150); Anion Gap 13 mmol/L (10-20); BUN (Urea Nitrogen) 50 mg/dL (8.4-25.7); Bilirubin, Total 0.7 mg/dL (0.2-1.2); Calc. Creatinine Clearance 19 mL/min (70-130); Calcium 9.1 mg/dL (7.8-10.44); Carbon Dioxide 23 mmol/L (23-31); Chloride 105 mmol/L (98-107); Estimated GFR-MDRD 21; Globulin 3.6 g/dL (2.4-3.5); Glucose 80 mg/dL (83-110); Potassium 4.7 mmol/L (3.5-5.1); Protein, Total 6.5 g/dL (5.8-8.1); Sodium 136 mmol/L (136-145)
[2018-10-15 08:02] VITALS: BP 147/70; TEMP 98.8
[2018-10-15] MEDS ORDERED: Amlodipine 5 MG TAB PO SCH (09:00)
[2018-10-15] MEDS ORDERED: Cyanocobalamin (Vitamin B-12) 1,000 MCG TAB PO SCH (09:00)
[2018-10-15] MEDS ORDERED: PROPOFOL 20 ML ONE (10:57)
[2018-10-15] MEDS ORDERED: Famotidine/PF 20 mg/2ml Vial ONE (10:57)
[2018-10-15] MEDS ORDERED: Midazolam HCl 2 mg/2 ml Vial ONE (10:57)
[2018-10-15] MEDS ORDERED: Fentanyl 100 MCG/2 ML VIAL ONE (10:57)
[2018-10-15] MEDS ORDERED: CEFAZOLIN 2 GM/50 ML BAG ONE (10:59)
[2018-10-15] MEDS ORDERED: Heparin 1,000 UNITS/ML VIAL ONE (11:11)
[2018-10-15] MEDS ORDERED: Lidocaine 2% PF 5 ML VIAL ONE (11:13)
[2018-10-15] MEDS ORDERED: Bupivacaine HCl 0.5%/Epinephrine 1:200,000/PF 30 ml Vial ONE (11:13)
[2018-10-15] MEDS ORDERED: Sodium Chloride 0.9% 20 ML ONE (11:13)
[2018-10-15] MEDS ORDERED: Heparin 10,000 UNITS/1 ML VIAL ONE (11:13)
[2018-10-15] MEDS ORDERED: Ondansetron HCl/PF 4 MG/2 ML Vial IVP PRN (11:45)
[2018-10-15] MEDS ORDERED: PROPOFOL 200 MG/20 ML VIAL ONE (12:46)
[2018-10-15] MEDS ORDERED: Lidocaine 1% PF 5 ML VIAL ONE (12:46)
[2018-10-15] MEDS: Dronedarone HCl 400 MG TAB PO SCH ×2 (14:11→17:48)
--- NOTE | 2018-10-15 14:50 | OP ---
DATE OF PROCEDURE: 10/15/2018 PREOPERATIVE DIAGNOSES: End-stage renal disease, dysfunctional left Wellington fistula with infiltration with good bruit, needs to rest for a period before access again. POSTOPERATIVE DIAGNOSES: End-stage renal disease, dysfunctional left Wellington fistula with infiltration with good bruit, needs to rest for a period before access again. PROCEDURES PERFORMED: Right IJ-cuffed tunneled hemodialysis catheter, ultrasound, fluoroscopy used. ANESTHESIA: Intravenous sedation, local of 0.5% Marcaine with epinephrine 30 mL mixed with 2% Xylocaine 10 mL, 20 mL mixture used. DESCRIPTION OF PROCEDURE: The patient was taken to the operating room, where under intravenous sedation, neck and chest were prepared with ChloraPrep and draped in routine fashion. Local anesthetic was infiltrated in the skin and subcutaneous tissue about the operative site. Ultrasound was used to cannulate the right internal jugular vein from threading the J-wire, removing the trocar catheter. Enlarged skin was incised sharply and a stab incision was made over the right chest and tunneling device was used to tunnel the pre-curved [employer] cuffed-tunneled hemodialysis catheter between the 2 incisions, placed in the fabric cuff beneath the skin access site over the chest. Catheter was secured with two sutures of 3-0 nylon. Small ad medium size dilators were placed over the J-wire and the internal jugular vein was removed. Dilator and Peel-Away sheath placed over the J-wire in superior vena cava. Dilator and J-wire were removed. Catheter was placed through the Peel-Away sheath. Peel-Away sheath was removed. Platysma was approximated with 4-0 Monocryl, skin with subdermal 4-0 Monocryl and derma glue. Sterile dressings were applied. Fluoroscopic images revealed good line placement. Each port aspirated blood and flushed with saline solution and heparinized saline solution with 1000 units of heparin per mL indicating volume of the port. The patient tolerated the procedure well. Job ID: [id number]
[2018-10-15] MEDS ORDERED: Rivaroxaban 15 MG TAB PO SCH (17:00)
--- NOTE | 2018-10-15 17:18 | PRG ---
DATE OF SERVICE: 10/15/2018 SUBJECTIVE: A 73-year-old gentleman being seen for end-stage renal disease. The patient denied any nausea, vomiting, or chest pain. OBJECTIVE: GENERAL: The patient is awake and alert. VITAL SIGNS: Afebrile, pulse 70, breathing 16, blood pressure 131/62. GENERAL APPEARANCE AND MENTAL STATUS: Fair. HEAD/NECK: Normocephalic. Atraumatic. EYES: EOMI. No deformity. EARS: Clear. No ulcers. NOSE: Intact. No lesions. MOUTH: Clear. No discharge. THROAT: Clear. No exudate. LUNGS: Clear. No crackles. CARDIAC: S1, S2. No rub. ABDOMEN: Benign. Bowel sounds positive. GENITALIA/RECTUM: Howard absent. BACK/EXTREMITIES: Edema 0+. NEUROLOGICAL: Alert and motor intact. LABORATORY DATA: Labs show hemoglobin 8.1. ASSESSMENT AND PLAN: 1. Stage 6 chronic kidney disease, plan dialysis. 2. Hypertension, stable. 3. Anemia, stable. 4. Medication based on GFR, appropriate. Job ID: [id number]
[2018-10-15] MEDS: Carvedilol 25 MG TAB PO SCH (17:48)
--- NOTE | 2018-10-15 17:55 | RAD ---
FRONTAL VIEW CHEST: 10/15/18 COMPARISON: 10/07/18. CLINICAL INDICATION: History of CHF. Central line placement/evaluation. There is a tunneled right side vascular catheter with tip overlying the region of right atrium. Inter stitial prominence of each lung is present. There is mild blunting of each costophrenic sulcus which may reflect small volume bilateral pleural fluid. The cardiac silhouette and pulmonary vasculature ar e enlarged. IMPRESSION: 1. Interval placement of right side vascular catheter without a discrete postoperative pneumotho rax of significance. 2. Findings indicate CHF with fluid overload. POS: [facility]
== END 2018-10-15 18:55 | disposition home or self-care (01) ==
LOC: ERS 11:17 → 2SW 13:24
PROVIDERS: ADMIT Internal Medicine; ATTEND Specialist
PROC: 0JH60XZ Insertion of Tunneled Vascular Access Device into Chest Subcutaneous Tissue and Fascia, Open Approach (ICD-10-PCS; principal; 2018-10-15)
DX: T82.42XA Displacement of vascular dialysis catheter, initial encounter (principal); I25.10 Atherosclerotic heart disease of native coronary artery without angina pectoris; I73.9 Peripheral vascular disease, unspecified; I48.91 Unspecified atrial fibrillation; I13.2 Hypertensive heart and chronic kidney disease with heart failure and with stage 5 chronic kidney disease, or end stage renal disease; E11.22 Type 2 diabetes mellitus with diabetic chronic kidney disease; N18.6 End stage renal disease; Z99.2 Dependence on renal dialysis; I50.30 Unspecified diastolic (congestive) heart failure; E78.5 Hyperlipidemia, unspecified; D64.9 Anemia, unspecified; Z88.8 Allergy status to other drugs, medicaments and biological substances; Z79.01 Long term (current) use of anticoagulants; Z79.899 Other long term (current) drug therapy; Z98.890 Other specified postprocedural states
CPT/HCPCS: 36561; 71045; 76000; 80053 ×2; 84484; 85025 ×2; 85610; 85730; 86850; 86900; 86901; 93005; 94760; 99285; C1752; C1769; G0378 ×2; 36415; 90935; G0257; J0670; J1644; J2001; J2250; J2704; J3010; S0028

== ENCOUNTER → 2018-12-23 | Day surgery (SDC) | payer MEDICARE, OTHER ==
[2018-12-22 13:14] VITALS: BMI 20.9
== END ==
LOC: CCL 11:33
PROVIDERS: ATTEND Internal Medicine Cardiovascular Disease
DX: I48.91 Unspecified atrial fibrillation (principal); Z79.01 Long term (current) use of anticoagulants; Z79.82 Long term (current) use of aspirin; Z79.899 Other long term (current) drug therapy; Z88.8 Allergy status to other drugs, medicaments and biological substances; Z53.9 Procedure and treatment not carried out, unspecified reason

== ENCOUNTER 2019-01-18 09:39 | Day surgery (SDC) | payer MEDICARE, OTHER ==
--- NOTE | 2019-01-18 08:23 | HP ---
HISTORY OF PRESENT ILLNESS: Pipo Goins is a 73-year-old male patient, dialyzes in [facility] Thursday, Thursday, and Thursday, followed by Dr. Gage. He is followed by Dr. Chacon, Nephrology. The patient has a hemodialysis catheter, being used for treatments. He has a fistula, established left arm, August 2017, that has been rested, awaiting for infiltration to resolve prior to re-cannulation, he is on Xarelto. He desires peritoneal dialysis. He understands the risks and benefits of procedure and we will plan laparoscopic peritoneal dialysis catheter under general anesthesia. It is important for him to have his catheter flushed and dressing changed 3 to 8 days postoperatively by the peritoneal dialysis nurse. MEDICATIONS: 1. Xarelto. He will hold it 2 days prior to surgery and resume it 2 days postoperatively. 2. Aspirin 81 mg a day. 3. Vitamins daily. 4. Benazepril 20 mg a day. 5. Amlodipine 10 mg a day. PAST MEDICAL HISTORY: Hypertension, end-stage renal disease. Dr. Oneil has seen for atrial fibrillation and a Watchman procedure. PAST SURGICAL HISTORY: Hemodialysis catheter placement, left Wellington fistula in August 2017, hemodialysis catheter on October 15, 2018. FAMILY HISTORY: Coronary artery disease. SOCIAL HISTORY: Tobacco, none. Alcohol, none. PHYSICAL EXAMINATION: VITAL SIGNS: Weight 127 pounds, height 65 inches, blood pressure 123/56, temperature 99 degrees. GENERAL: The patient is overall well developed, well nourished. HEAD, EYES, EARS, NOSE, THROAT: Unremarkable. LUNGS: Clear to auscultation. CARDIAC: Regular rate and rhythm with 3 to 4/6 ejection murmur, aortic valve prosthetic, bilateral breath sounds clear to auscultation. ABDOMEN: Soft, nontender. No masses. No hernias. EXTREMITIES: Left arm fistula. Good thrill and bruit. Good hand function. Application of fistula in the upper arm noted. No ankle edema. GENITALIA: Testes, normal. No hernias. Exam in standing Valsalva. ASSESSMENT: End-stage renal disease. PLAN: Laparoscopic peritoneal dialysis catheter. He understands the risks and benefits and consents. He will hold his Xarelto 2 days preoperatively. Job ID: [id number]
[2019-01-18 11:12] LABS: #Basophils 0.1 thou/uL (0.0-0.2); #Eosinphils 1.4 thou/uL (0.0-0.7); #Lymphocytes 1.5 thou/uL (1.20-3.40); %Basophils 0.8 % (0.0-1.0); %Eosinophils 13.7 % (0.0-10.0); %Lymphocytes 15.1 % (21.0-51.0); %Monocytes 10.4 % (0.0-10.0); Hemoglobin 8.7 g/dL (14.0-18.0); Mean Corpuscular HGB CONC 30.3 g/dL (32.0-36.0); Mean Corpuscular Hemoglobin 28.3 pg (27.0-31.0); Mean Corpuscular Volume 93.5 fL (78.0-98.0); Mean Platelet Volume 8.6 fL (7.4-10.4); Platelet Count 156 thou/uL (130-400); RBC Distribution Width 20.2 % (11.5-14.5); Red Blood Cell (RBC) Count 3.06 mill/uL (4.70-6.10)
[2019-01-18 11:21] LABS: Anion Gap 11 mmol/L (10-20); BUN (Urea Nitrogen) 29 mg/dL (8.4-25.7); Calc. Creatinine Clearance 0 mL/min (70-130); Calcium 9.7 mg/dL (7.8-10.44); Carbon Dioxide 29 mmol/L (23-31); Chloride 104 mmol/L (98-107); Estimated GFR-MDRD 33; Glucose 91 mg/dL (83-110); Potassium 3.5 mmol/L (3.5-5.1); Sodium 140 mmol/L (136-145)
[2019-01-18 11:52] LABS: Hypochromia SLIGHT = 6-15 cells (100X) (0-5/hpf); MDiff Complete? YES; Polychromasia SLIGHT = 2-3 cells (100X) (0-2/hpf)
[2019-01-18] MEDS ORDERED: Bupivacaine HCl 0.5%/Epinephrine 1:200,000/PF 30 ml Vial ONE (12:06)
[2019-01-18] MEDS ORDERED: Heparin 10,000 UNITS/1 ML VIAL ONE (12:06)
[2019-01-18] MEDS ORDERED: Lidocaine 2% PF 5 ML VIAL ONE (12:06)
[2019-01-18] MEDS ORDERED: Fentanyl 100 MCG/2 ML VIAL ONE (12:12)
[2019-01-18] MEDS ORDERED: SUGAMMADEX SODIUM 200 MG/2 ML VIAL ONE (13:06)
[2019-01-18] MEDS ORDERED: Promethazine HCl 25 MG/ML VIAL IM PRN (13:20)
[2019-01-18] MEDS ORDERED: Promethazine HCl 25 MG/ML VIAL SLOW IVP PRN (13:20)
[2019-01-18] MEDS ORDERED: Ondansetron HCl/PF 4 MG/2 ML Vial IVP PRN (13:20)
[2019-01-18] MEDS ORDERED: Rocuronium Bromide 10 MG/ML (10ML VIAL) ONE (13:26)
[2019-01-18] MEDS ORDERED: Lidocaine 1% PF 5 ML VIAL ONE (13:26)
[2019-01-18] MEDS ORDERED: Ondansetron PF 4 MG/2 ML Vial ONE (13:26)
[2019-01-18] MEDS ORDERED: ePHEDrine 50 MG/ML VIAL ONE (13:26)
[2019-01-18] MEDS ORDERED: PROPOFOL 200 MG/20 ML VIAL ONE (13:26)
[2019-01-18] MEDS ORDERED: PHENYLEPHRINE-NS 100 MCG/ML 10 ML SYRINGE ONE (13:26)
[2019-01-18] MEDS ORDERED: Dexamethasone 20 MG/5 ML VIAL ONE (13:26)
--- NOTE | 2019-01-18 13:46 | OP ---
DATE OF PROCEDURE: 01/18/2019 PREOPERATIVE DIAGNOSIS: End-stage renal disease, desires peritoneal dialysis. POSTOPERATIVE DIAGNOSIS: End-stage renal disease, desires peritoneal dialysis. PROCEDURE PERFORMED: Laparoscopic peritoneal dialysis catheter, double cuffed pigtail. Laparoscopic omentopexy. ANESTHESIA: General, local 0.5% Marcaine with epinephrine 30 mL mixed with Xylocaine 10 mL. DESCRIPTION OF PROCEDURE: The patient was taken to the operating room where under general anesthesia, abdomen was clipped of hair, prepared with ChloraPrep and draped in routine fashion. Local anesthetic was infiltrated in the skin and subcutaneous tissue about the operative sites. Bilateral far lateral subcostal incisions were made. Pneumoperitoneum to 15 mmHg obtained with Veress needle, placed him with a 5 port on the left and a 5 port placed on the right laparoscopically. A planned exit site left lower quadrant stab incision was made, and a counterincision made periumbilical left. An 8 mm port placed under laparoscopic visualization directed caudally in the subcutaneous tissue rectus sheath penetrating the abdominal wall inferiorly caudally. Double-cuffed pigtail catheter placed into the abdominal cavity, placing the internal cuff in the rectus sheath, removing the 8 mm port and placed the Karen dissector through the planned exit site to the counterincision, grasping the PD catheter and pulling it out the exit site. Placed an external cuff beneath the skin exit site, and the subcutaneous tissue was approximated 4-0 Monocryl, skin with subdermal 4-0 Monocryl. His catheter was flushed with heparinized saline solution and sterile dressing applied. Omentum was short, but the transverse colon hung low. Thus, omentopexy performed with transabdominal wall fixation technique using the GraNee needle and a 2-0 Vicryl. Once the omentum was pexed to the abdominal wall cephalad, abdominal cavity irrigated. Good hemostasis noted. Pneumoperitoneum reduced. All instruments removed. All skin incisions were approximated with subdermal 4-0 Monocryl and dermal glue applied. The patient tolerated the procedure well. Job ID: [id number]
[2019-01-18] MEDS ORDERED: Heparin 10,000 UNITS/ 10 ML VIAL ONE (14:51)
[2019-01-18] MEDS ORDERED: HYDROcodone/Acetaminophen 5/325 mg Tablet ONE (15:39)
== END 2019-01-18 16:20 | disposition home or self-care (01) ==
LOC: SDC 09:39
PROVIDERS: ATTEND Specialist
PROC: 0WHG43Z Insertion of Infusion Device into Peritoneal Cavity, Percutaneous Endoscopic Approach (ICD-10-PCS; principal; 2019-01-18)
DX: I13.2 Hypertensive heart and chronic kidney disease with heart failure and with stage 5 chronic kidney disease, or end stage renal disease (principal); N18.6 End stage renal disease; I50.32 Chronic diastolic (congestive) heart failure; Z99.2 Dependence on renal dialysis; I25.10 Atherosclerotic heart disease of native coronary artery without angina pectoris; I48.2 Chronic atrial fibrillation; I35.0 Nonrheumatic aortic (valve) stenosis; I73.9 Peripheral vascular disease, unspecified; J44.9 Chronic obstructive pulmonary disease, unspecified; E78.5 Hyperlipidemia, unspecified; Z88.8 Allergy status to other drugs, medicaments and biological substances; Z79.01 Long term (current) use of anticoagulants; Z79.82 Long term (current) use of aspirin; Z79.899 Other long term (current) drug therapy; Z98.890 Other specified postprocedural states
CPT/HCPCS: 80048; 85025; J0131; J0670; J1644; J2001; J3010

== ENCOUNTER 2019-01-20 09:39 | Day surgery (SDC) | payer MEDICARE, OTHER ==
[2019-01-17 13:02] VITALS: BMI 20.7
[2019-01-20] MEDS ORDERED: PROPOFOL 20 ML ONE (10:16)
[2019-01-20] MEDS ORDERED: Ketamine 50 MG/ML (10ML VIAL) ONE (14:29)
--- NOTE | 2019-01-20 15:52 | ECHO ---
REFERRING PHYSICIAN: Dr. Oneil REASON FOR PROCEDURE: Patient is a 73-year-old man with prior history of paroxysmal atrial fibrillati on with Multaq suppression. Has history of Watchman device placement in 07/22/2018 suggestive of brandon ce leak. He is here for recheck over six months after the implant. PROCEDURE: The patient received propofol by Anesthesia specialist. After adequate level of sedation achieved, a standard transesophageal echocardiogram probe was passed into the distal esophagus witho ut difficulty. Patient tolerated the procedure well, no complications noted. RESULTS: Left atrium is moderately enlarged about 4.8 cm in horizontal diameter. The appendage well visualize d with adequately seated Watchman device in place. There is a leak still noted adjacent to the Watchm an device. Possibly the leak is still present through the mesh work. There is still echo lucency note d posterior to the Watchman device in the left atrial appendage. Three out of four pulmonary veins we re visualized. The mitral valve seems to be somewhat mildly thickened and moderately to severe regur gitant. No mitral valve stenosis seen. The left ventricular function is preserved. Mild hypertrophy is noted. Right sided chambers are nondilated. Pericardial space is without effusion. No pulmonary or tricuspid valve abnormalities are seen. Pulmonary valve is borderline visualized. Aortic valve has three leaflets but there is some adhesion and significant thickening noted. Planimeter was performed and appears to be measuring an aortic valve area of 0.5 sq. cm. There is also mild central aortic re gurgitation seen. The visualized portion of ascending and descending aorta without aneurysm or dissec tion. There is heavy and mobile atheroma noted in the descending portion of the aorta. . CONCLUSION: 1. No intracardiac clots. 2. Adequately seated Watchman device. Possible residual leak possibly through the mesh where it cove rs the device is visualized. 3. Moderate left atrial enlargement. 4. Moderate to severe mitral regurgitation. 5. Severe aortic stenosis with mild aortic regurgitation. 6. Normal left ventricular systolic function. 7. Heavy atheroma burden on the descending aorta with some atheroma also mobile. PLAN: For now continue oral anticoagulation. We will discuss with Watchman service in [place].
[2019-01-20] MEDS ORDERED: PROPOFOL 200 MG/20 ML VIAL ONE (16:18)
== END 2019-01-20 16:21 | disposition home or self-care (01) ==
LOC: CCL 09:39
PROVIDERS: ATTEND Internal Medicine Cardiovascular Disease
PROC: B24BZZ4 Ultrasonography of Heart with Aorta, Transesophageal (ICD-10-PCS; principal; 2019-01-20)
DX: I48.0 Paroxysmal atrial fibrillation (principal); I35.0 Nonrheumatic aortic (valve) stenosis; I70.0 Atherosclerosis of aorta; I13.0 Hypertensive heart and chronic kidney disease with heart failure and stage 1 through stage 4 chronic kidney disease, or unspecified chronic kidney disease; N18.6 End stage renal disease; I50.30 Unspecified diastolic (congestive) heart failure; Z79.01 Long term (current) use of anticoagulants; Z79.82 Long term (current) use of aspirin; Z79.899 Other long term (current) drug therapy; Z88.8 Allergy status to other drugs, medicaments and biological substances; Z95.818 Presence of other cardiac implants and grafts; Z99.2 Dependence on renal dialysis
CPT/HCPCS: 93312; J2704

== ENCOUNTER → 2019-04-29 | Day surgery (SDC) | payer MEDICARE, OTHER ==
[~2019-04-29] MED LIST changes: -Lidocaine 1% PF 5 ML VIAL ONE; -PHENYLEPHRINE-NS 100 MCG/ML 10 ML SYRINGE ONE; -PROPOFOL 200 MG/20 ML VIAL ONE
[2019-04-29 09:12] LABS: INR-International Normal Ratio 1.1; PTT 32.8 SEC (22.9-36.1); Prothrombin Time 13.8 SEC (12.0-14.7)
[2019-04-29 09:15] LABS: Hemoglobin 12.6 g/dL (14.0-18.0); Mean Corpuscular HGB CONC 31.5 g/dL (32.0-36.0); Mean Corpuscular Hemoglobin 28.7 pg (27.0-31.0); Mean Corpuscular Volume 91.3 fL (78.0-98.0); Platelet Count 130 thou/uL (130-400); Red Blood Cell (RBC) Count 4.38 mill/uL (4.70-6.10); White Blood Cell (WBC) Count 6.3 thou/uL (4.8-10.8)
[2019-04-29 09:21] LABS: Anion Gap 14 mmol/L (10-20); BUN (Urea Nitrogen) 37 mg/dL (8.4-25.7); Calc. Creatinine Clearance 0 mL/min (70-130); Carbon Dioxide 28 mmol/L (23-31); Chloride 102 mmol/L (98-107); Estimated GFR-MDRD 17; Glucose 99 mg/dL (83-110); Potassium 3.2 mmol/L (3.5-5.1); Sodium 141 mmol/L (136-145)
[2019-04-29 10:54] LABS: Band 3 % (5-11); Eosinophils 8 % (0-10); Lymphocytes 18 % (21-51); MDiff Complete? YES; Monocytes 14 % (0-10); Neutrophil 56 % (42-75); Platelet Morphology Comment Appears Adequate; RBC Morphology Normal; Reactive Lymphocytes 1 % (0-10)
--- NOTE | 2019-04-29 17:13 | EKG ---
Test Reason : PREOP Blood Pressure : / mmHG Vent. Rate : 062 BPM Atrial Rate : 062 BPM P-R Int : 152 ms QRS Dur : 092 ms QT Int : 492 ms P-R-T Axes : 043 -04 023 degrees QTc Int : 499 ms Normal sinus rhythm Minimal voltage criteria for LVH, may be normal variant Prolonged QT Abnormal ECG When compared with ECG of 14-OCT-2018 11:59, No significant change was found Confirmed by DR. Mattie JOY ([id number]) on 04/29/2019 5:12:29 PM Referred By: NIKUNJ Confirmed By:DR. Mattie JOY
--- NOTE | 2019-04-30 16:15 | ECHO ---
DATE OF SERVICE: 04/29/19 REFERRING PHYSICIAN: Osmani Major. REASON FOR PROCEDURE: The patient is a 73-year-old man with female with paroxysmal atrial fibrillation. Recently suppressed with Multaq who has had a Watchman procedure in 06/2018 but subsequent ZACK showed recurrent leaks. On aspiration and Plavix. Also has history of MR and severe . Is here for ZACK to evaluate Watchman an d the valvular structures. PROCEDURE: The patient received propofol by Anesthesia specialist. After adequate level of sedation achieved, a standard transesophageal echocardiogram probe was passed into the esophagus without diff iculty. Patient tolerated the procedure well, no complications noted. RESULTS: Left atrium is moderately enlarged about 4.5 cm in horizontal diameter. Left atrial appendage is well visualized. An adequately seated Watchman device is in place. There is significant echo free space s uggesting suboptimal clotting behind the Watchman device. Color Doppler evaluation does reveal likely two leaks, one possibly through the mesh work and one adjacent to the Watchman on the venous side of the appendage. Four out of four pulmonary veins were seen. The interatrial septum is without defect. The mitral declan ve has mild to moderate eccentric regurgitation. Left ventricular systolic function is preserved. No pericardial effusion noted. The aortic valve is sclerotic and stenotic likely severe with visual insp ection. Trace tricuspid regurgitation and ------ vegetation noted. The visualized portion of ascendin g aorta is nondissected. In the descending aorta, circumferential atheroma is seen throughout and 28 cm of mobile atheroma is also visualized. PLAN: Continue aspirin and Plavix. Send CT evaluation for Dr. Esparza regarding potential recoiling of this leak and also let Dr. Oneil know about the mobile atheroma.
== END ==
LOC: CCL 08:14
PROVIDERS: ATTEND Internal Medicine Cardiovascular Disease
PROC: B24BZZ4 Ultrasonography of Heart with Aorta, Transesophageal (ICD-10-PCS; principal; 2019-04-29)
DX: T82.538A Leakage of other cardiac and vascular devices and implants, initial encounter (principal); I48.0 Paroxysmal atrial fibrillation; I08.1 Rheumatic disorders of both mitral and tricuspid valves; I35.0 Nonrheumatic aortic (valve) stenosis; I70.0 Atherosclerosis of aorta; I13.2 Hypertensive heart and chronic kidney disease with heart failure and with stage 5 chronic kidney disease, or end stage renal disease; N18.6 End stage renal disease; I50.30 Unspecified diastolic (congestive) heart failure; Z79.02 Long term (current) use of antithrombotics/antiplatelets; Z79.82 Long term (current) use of aspirin; Z79.899 Other long term (current) drug therapy; Z88.8 Allergy status to other drugs, medicaments and biological substances; Z95.818 Presence of other cardiac implants and grafts; Z98.890 Other specified postprocedural states
CPT/HCPCS: 80048; 85025; 85610; 85730; 93005; 93010; 93312; J2704

== ENCOUNTER 2020-02-09 13:44 | Outpatient (CLI) | payer MEDICARE, OTHER ==
[2020-02-09 14:49] LABS: Anion Gap 18 mmol/L (10-20); BUN (Urea Nitrogen) 44 mg/dL (8.4-25.7); Calc. Creatinine Clearance 0 mL/min (70-130); Carbon Dioxide 29 mmol/L (23-31); Chloride 99 mmol/L (98-107); Estimated GFR-MDRD 7; Sodium 142 mmol/L (136-145)
[2020-02-09 14:50] LABS: ALT (SGPT) 19 U/L (8-55); AST (SGOT) 20 U/L (5-34); Albumin 4.3 g/dL (3.4-4.8); Alkaline Phosphatase 69 U/L (40-110); Bilirubin, Total 0.6 mg/dL (0.2-1.2); Calcium 10.9 mg/dL (7.8-10.44); Globulin 3.8 g/dL (2.4-3.5); Glucose 83 mg/dL (83-110); Protein, Total 8.1 g/dL (5.8-8.1)
[2020-02-09 15:19] LABS: Band 5 % (5-11); Eosinophils 2 % (0-10); Hemoglobin 11.9 g/dL (14.0-18.0); Lymphocytes 16 % (21-51); MDiff Complete? YES; Macrocytosis SLIGHT = 6-15 cells (100X) (0-5/hpf); Mean Corpuscular HGB CONC 33.9 g/dL (32.0-36.0); Mean Corpuscular Hemoglobin 34.5 pg (27.0-31.0); Mean Platelet Volume 9.1 fL (7.4-10.4); Monocytes 16 % (0-10); Neutrophil 61 % (42-75); Platelet Count 126 thou/uL (130-400); Platelet Morphology Comment Appears Decreased; RBC Distribution Width 13.3 % (11.5-14.5); Red Blood Cell (RBC) Count 3.45 mill/uL (4.70-6.10); White Blood Cell (WBC) Count 10.5 thou/uL (4.8-10.8)
[2020-02-10 11:25] LABS: SARS-CoV-2 MS2 Positive; SARS-CoV-2 N Gene Negative; SARS-CoV-2 S Gene Negative; SARS-CoV-2 orf1ab Negative
== END 2020-02-09 13:45 | disposition home or self-care (01) ==
LOC: CCL 13:44 → LABBT 13:45
PROVIDERS: ATTEND Internal Medicine Cardiovascular Disease
DX: Z01.812 Encounter for preprocedural laboratory examination (principal); Z11.59 Encounter for screening for other viral diseases
CPT/HCPCS: 80053; 85025; U0002; 87635

== ENCOUNTER 2020-02-13 05:47 | Day surgery (SDC) | payer MEDICARE, OTHER ==
[2020-02-09 14:00] VITALS: BMI 24.6
[2020-02-13] MEDS ORDERED: Midazolam HCl 2 mg/2 ml Vial ONE (07:08)
[2020-02-13] MEDS ORDERED: Fentanyl 100 MCG/2 ML VIAL ONE (07:08)
--- NOTE | 2020-02-13 21:41 | CON ---
DATE OF CONSULTATION: HISTORY OF PRESENT ILLNESS: This is a 74-year-old gentleman, on chronic peritoneal dialysis, who has been followed for some time for aortic valve stenosis with worsening dyspnea such that it was felt that he would benefit from a TAVR. The patient was evaluated in [place] with a CT scan. However, cardiac catheterization today showed LAD and obtuse marginal disease with mild right coronary disease. PAST MEDICAL HISTORY: Includes hypertension; peripheral vascular disease; aortic valve stenosis; paroxysmal atrial fibrillation with a previous Watchman device; and end-stage renal disease, on peritoneal dialysis. PAST SURGICAL HISTORY: Includes right carotid stenting in 2015, bilateral carotid endarterectomies. He has had the Watchman device, fistula in his left arm in 2017. SOCIAL HISTORY: He is . Lives with his . Nonsmoker. PAST MEDICAL HISTORY: Otherwise, includes Gonzalez's palsy and peripheral vascular disease with a lower extremity stent in 2014. Most recent carotid ultrasound was unremarkable. PHYSICAL EXAMINATION: GENERAL: He is an alert, cooperative gentleman, in no distress. NECK: Bilateral radiated bruits in his neck. CARDIAC: 4/6 systolic murmur across the precordium heard even into the back with clear lung de la torre. ABDOMEN: Soft abdomen with a left lower quadrant peritoneal dialysis catheter. EXTREMITIES: He has no peripheral edema at this time and has palpable femoral, popliteal, and dorsalis pedis pulses with no posterior tibial pulses. CURRENT MEDICATIONS: Include, 1. Protonix 40 a day. 2. Donna-Adrianna tablets once a day. 3. Vitamin D once a week. 4. Multaq 400 b.i.d. 5. Atorvastatin 20 a day. 6. Aspirin 81 a day. 7. Plavix 75 a day. 8. Colace daily. 9. Toprol-XL 25 daily. 10. Hydralazine 10 twice a day. 11. . ALLERGIES: TO GABAPENTIN CAUSING A RASH AND LISINOPRIL. PLAN: At this time is for aortic valve replacement and 2-vessel coronary artery bypass grafting and we will obtain his CT scan from [place] and also have him stop his Plavix. All questions have been answered. Job ID: [id number]
== END 2020-02-13 13:40 | disposition home or self-care (01) ==
LOC: CCL 05:47
PROVIDERS: ATTEND Internal Medicine Cardiovascular Disease
PROC: 4A023N8 Measurement of Cardiac Sampling and Pressure, Bilateral, Percutaneous Approach (ICD-10-PCS; principal; 2020-02-13)
PROC: B2111ZZ Fluoroscopy of Multiple Coronary Arteries using Low Osmolar Contrast (ICD-10-PCS; 2020-02-13)
DX: I35.0 Nonrheumatic aortic (valve) stenosis (principal); I25.10 Atherosclerotic heart disease of native coronary artery without angina pectoris; E78.00 Pure hypercholesterolemia, unspecified; I13.0 Hypertensive heart and chronic kidney disease with heart failure and stage 1 through stage 4 chronic kidney disease, or unspecified chronic kidney disease; N18.6 End stage renal disease; I50.30 Unspecified diastolic (congestive) heart failure; I48.0 Paroxysmal atrial fibrillation; I73.9 Peripheral vascular disease, unspecified; Z87.891 Personal history of nicotine dependence; Z79.02 Long term (current) use of antithrombotics/antiplatelets; Z79.82 Long term (current) use of aspirin; Z79.899 Other long term (current) drug therapy; Z88.8 Allergy status to other drugs, medicaments and biological substances; Z99.2 Dependence on renal dialysis; Z95.820 Peripheral vascular angioplasty status with implants and grafts
CPT/HCPCS: 76942; 93460; 93561; C1769; J1644; J2250; J3010

== ENCOUNTER 2020-02-22 20:22 | Emergency (ER) | payer MEDICARE, OTHER ==
[~2020-02-22 20:22] MED LIST changes: +EPINEPHrine 1 MG/10 ML Abboject SYRINGE ONE; -PROPOFOL 20 ML ONE
[2020-02-22 21:05] LABS: Hemoglobin 9.8 g/dL (14.0-18.0); Mean Corpuscular HGB CONC 31.8 g/dL (32.0-36.0); Mean Corpuscular Hemoglobin 34.5 pg (27.0-31.0); Platelet Count 203 thou/uL (130-400); RBC Distribution Width 14.5 % (11.5-14.5); Red Blood Cell (RBC) Count 2.84 mill/uL (4.70-6.10)
[2020-02-22 21:30] LABS: Band 8 % (5-11); Eosinophils 2 % (0-10); Lymphocytes 5 % (21-51); MDiff Complete? YES; Macrocytosis SLIGHT = 6-15 cells (100X) (0-5/hpf); Monocytes 14 % (0-10); Myelocyte 3 % (0-0); Neutrophil 68 % (42-75); Nucleated RBC 4 % (0); Polychromasia SLIGHT = 2-3 cells (100X) (0-2/hpf); White Blood Cell (WBC) Count 19.5 thou/uL (4.8-10.8)
[2020-02-22 21:31] LABS: ALT (SGPT) 161 U/L (8-55); AST (SGOT) 195 U/L (5-34); Albumin 3.5 g/dL (3.4-4.8); Alkaline Phosphatase 65 U/L (40-110); Anion Gap 36 mmol/L (10-20); BUN (Urea Nitrogen) 92 mg/dL (8.4-25.7); Bilirubin, Total 1.2 mg/dL (0.2-1.2); Calc. Creatinine Clearance 0 mL/min (70-130); Calcium 9.9 mg/dL (7.8-10.44); Carbon Dioxide 10 mmol/L (23-31); Chloride 96 mmol/L (98-107); Estimated GFR-MDRD 5; Globulin 3.8 g/dL (2.4-3.5); Glucose 171 mg/dL (83-110); Potassium 4.3 mmol/L (3.5-5.1); Protein, Total 7.3 g/dL (5.8-8.1); Sodium 138 mmol/L (136-145)
--- NOTE | 2020-02-22 21:39 | RAD ---
CHEST ONE VIEW: 02/22/20 INDICATION: History of hypertension. COMPARISON: Prior exam dated 10/15/18 and 03/31/18. FINDINGS: There is mild cardiomegaly with pulmonary vascular congestion. No haim pulmonary edema, pleural effu cheikh or pneumothorax is evident. No definite acute osseous abnormality is noted. IMPRESSION: Cardiomegaly with pulmonary vascular congestion. No haim pulmonary edema or pleural effusion is evid ent. Continued follow-up is recommended. POS: BH
[2020-02-22] MEDS ORDERED: Furosemide 40 MG/4 ML VIAL ONE (21:54)
[2020-02-22] MEDS ORDERED: Piperacillin/Tazobactam 3.375 GM VIAL ONE (21:59)
[2020-02-22] MEDS ORDERED: Promethazine HCl 12.5 MG in Sodium Chloride 0.9% 50 ML IVPB PRN (22:26)
[2020-02-22] MEDS ORDERED: Labetalol HCl 100 MG/20 ML VIAL SLOW IVP PRN (22:26)
[2020-02-22] MEDS ORDERED: Ondansetron PF 4 MG/2 ML Vial IVP PRN (22:26)
[2020-02-22] MEDS ORDERED: cloNIDine 0.1 MG TAB PO PRN (22:26)
[2020-02-22] MEDS ORDERED: Morphine 2 MG/ML SYRINGE SLOW IVP PRN (22:26)
[2020-02-22] MEDS ORDERED: hydrALAZINE 20 MG/ML VIAL SLOW IVP PRN (22:26)
[2020-02-22] MEDS ORDERED: Senokot S 8.6-50 MG TAB PO PRN (22:28)
[2020-02-22] MEDS ORDERED: Acetaminophen 325 MG TAB PO PRN (22:28)
[2020-02-22] MEDS ORDERED: HYDROcodone/Acetaminophen 5/325 mg Tablet PO PRN (22:28)
[2020-02-22] MEDS ORDERED: Guaifenesin DM 100-10/5 ML UDCUP PO PRN (22:28)
[2020-02-22] MEDS ORDERED: Bisacodyl 5 MG TAB PO PRN (22:28)
[2020-02-22] MEDS ORDERED: Vancomycin 1 GM/200 ML BAG ONE (22:30)
--- NOTE | 2020-02-22 22:37 | PDOC.HHP ---
Hospitalist HPI - History of Present Illness Shortness of breath History of Present Illness: Patient is a 74 year old male with PMH ESRD on peritoneal dialysis, congestive heart failure who presents to ED for shortness of breath. He reports shortness of breath, orthopnea worsening x 5 days or so, denies chest pain, nausea/ vomiting. EMS was initially called for weakness, they found patient to be hypotensive and short of breath, was given 800cc NS. BP was 70s/50s on arrival, now 100s/50s. O2sat was 92. significant JVD noted. EKG w/ changes as noted below. In ED, Dr Lopez of cardiology consulted and provided recommendations. Nephrology consulted and recommended lasix challenge. Patient placed on BIPAP at recommendation of cardiology, Sound to admit patient for further management. Patient was scheduled to have CABG by Dr Oliver tomorrow. Initial labs troponin 77, lactic 9.9, CKMB 29, patient was alert on BIPAP on intial assessment, was able to talk as permitted by BIPAP, however patient unfortunately experienced code blue in the emergency room shortly after my initial assessment, was coded with CPR for appx 3 minutes however at that time was noted that patient previously had a DNAR order on file and code was halted. Multiple attempts were made to reach spouse at all numbers available however we were unsuccessful and have not yet been able to reach family. message left with HIPPA compliance observed and callback number left. Hospitalist ROS - Review of Systems Constitutional: denies: fever, chills, sweats, weakness, malaise, other Eyes: denies: pain, vision change, conjunctivae inflammation, eyelid inflammation, redness, other ENT: denies: ear pain, ear discharge, nose pain, nose discharge, nose congestion , mouth pain, mouth swelling, throat pain, throat swelling, other Respiratory: reports: cough, shortness of breath, SOB with excertion Cardiovascular: denies: chest pain, palpitations Gastrointestinal: denies: nausea, vomiting, abdominal pain, diarrhea, constipation, melena, hematochezia, other Genitourinary: denies: dysuria, frequency, incontinence, hematuria, retention, other Musculoskeletal: denies: neck pain, shoulder pain, arm pain, back pain, hand pain, leg pain, foot pain, other Skin: denies: rash, lesions, julio, bruising, other Neurological: denies: weakness, numbness, incoordination, change in speech, confusion, seizures, other All other systems reviewed; all pertinent +/- noted in HPI/Subj Hospitalist History - Past Medical History Other Medical History: PVD, Past medical history includes history of hypertension-TREATED, kidney failure-MWF Dialysis. CHF - Past Surgical History Other Surgical History: stent in left leg, LUE fistula, dialysis port to chest-REMOVED, carotid endarterectomy-BILATERAL. L atrial watchman - Family History Family History: reports: no pertinent history - Social History Other Social History: Patient is a former tobacco user, smoked cigarettes, Patient quit smoking more than 10 years ago, Lives at home, Patient denies alcohol use, Patient denies drug use, Patient has no smoking history. - Exam General - other findings: moderate distress Eye: PERRL, anicteric sclera ENT: normocephalic atraumatic, no oropharyngeal lesions, moist mucosa Neck: supple, JVD Heart: RRR, no murmur, no gallops, no rubs Respiratory - other findings: dependant crackles bilaterally Gastrointestinal: soft, non-tender, non-distended, normal bowel sounds, no palpable masses, no hepatomegaly, no splenomegaly, no bruit Extremities: no cyanosis, no clubbing Extremities - other findings: edema Skin: normal turgor, no lesions, no rashes Neurological: cranial nerve grossly intact, normal sensation to touch, no weakness, no focal deficits, no new deficit Musculoskeletal: normal tone, normal strength, no muscle wasting Psychiatric: normal affect, normal behavior, A&O x 3 Hospitalist Results - Labs Result Diagrams: 02/22/20 20:59 02/22/20 20:58 Lab results: WBC 19.5 thou/uL (4.8-10.8) H 02/22/20 20:59 Hgb 9.8 g/dL (14.0-18.0) L 02/22/20 20:59 Hct 30.9 % (42.0-52.0) L 02/22/20 20:59 MCV 109.0 fL (78.0-98.0) H 02/22/20 20:59 Plt Count 203 thou/uL (130-400) 02/22/20 20:59 Band Neuts % (Manual) 8 % (5-11) 02/22/20 20:59 Sodium 138 mmol/L (136-145) 02/22/20 20:58 Potassium 4.3 mmol/L (3.5-5.1) 02/22/20 20:58 Chloride 96 mmol/L (98-107) L 02/22/20 20:58 Carbon Dioxide 10 mmol/L (23-31) L 02/22/20 20:58 BUN 92 mg/dL (8.4-25.7) H 02/22/20 20:58 Creatinine 11.19 mg/dL (0.7-1.3) H 02/22/20 20:58 Glucose 171 mg/dL (83-110) H 02/22/20 20:58 Lactic Acid 9.9 mmol/L (0.5-2.2) H* 02/22/20 20:59 Calcium 9.9 mg/dL (7.8-10.44) 02/22/20 20:58 Total Bilirubin 1.2 mg/dL (0.2-1.2) 02/22/20 20:58 AST 195 U/L (5-34) H 02/22/20 20:58 ALT 161 U/L (8-55) H 02/22/20 20:58 Alkaline Phosphatase 65 U/L (40-110) 02/22/20 20:58 Troponin I 77.270 ng/mL (< 0.028) H* 02/22/20 20:59 B-Natriuretic Peptide 4657.3 pg/mL (0-100) H 02/22/20 20:59 Serum Total Protein 7.3 g/dL (5.8-8.1) 02/22/20 20:58 Albumin 3.5 g/dL (3.4-4.8) 02/22/20 20:58 Additional comment: VITAL SIGNS ThuFebruary 22, 2020 21:45 AJIT Jameson, Jt BP: 110/55 Pulse: 82 Resp: 18 Pain: 0 O2 sat: 98 on (Bipap) Time: 02/22/2020 21:45. CXR w/ CHF acute changes, reviewed - EKG Interpretation EKG: Normal sinus rhythm. Rate 82. Left axis deviation. Left bundle branch block. Wide QRS complex with a duration of [address] segment depression in V5 and V6. ED interpretation confirmed by me on independant review Hospitalist H&P A/P - Plan Plan: 74 year old male admitted for: # acute and chronic renal failure # lactic acidosis # acute hypoxic respiratory failure # cardiogenic and septic shock # acute and chronic CHF Unfortunately patient presented in severe state of illness, experienced code blue in the ER which was halted after noting previous DNAR order, patient passed after 3 minutes compressions halted without further interventions, we will continue to attempt to contact next of kin for planning disposition, appreciate efforts by Jessica Johnson, [place]. rhythm per ED notes was asystole. Per ED notes as follows: "74-year-old male presents with hypotension. Patient reports dyspnea orthopnea. Patient denies chest pain denies nausea vomiting denies diaphoresis. EKG shows a left bundle branch block which based on my research is new from October 2018. A picture of the EKG was sent to Dr. Lopez through [facility] text. She called back and consulted. States since the patient has scheduled for CABG. She may not be able to stent him. 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 Patient has end- stage renal disease. He is fluid overloaded and his creatinine is 11. His potassium is normal. Chest x-ray shows cardiomegaly with pulmonary vascular congestion. Discussed the case with nephrology who recommended Lasix once blood pressure was stable. And will attempt dialysis in the morning. Patient's lactic acid is 9.9. Patient's troponin is 77. Patient is in critical condition unlikely to survive. Patient will be admitted to critical care for CHF exacerbation anemia lactic acidosis with end-stage renal disease and volume overload. Dr. Pacheco from [facility] admitted. Patient was admitted for decompensated congestive heart failure and severe coronary artery disease with abnormal left bundle branch block. Cardiology was consulted nephrology was consulted. Patient was in route to ICU bed 81 when he suddenly arrested and went instantly into asystole. CPR was started good pulses confirmed asystole on the monitor. Intubation was in progress when a valid in hospital DO NOT RESUSCITATE was produced and verified. Time of 2244 hrs" TOD: 2243 DOD: 02/22/2020 Disposition - pending family discussion Cause of presumed to be shock, likely septic and cardiogenic with unknown source of sepsis.
[2020-02-22 22:41] LABS: CKMB 29.6 ng/mL (0-6.6)
[2020-02-22] MEDS ORDERED: Vancomycin 1 GM in Premix Bag 1 BAG IVPB SCH (22:45)
[2020-02-22] MEDS ORDERED: Vancomycin HCl 500 MG in Sodium Chloride 0.9% 100 ML IVPB SCH (22:45)
[2020-02-22] MEDS ORDERED: HOLD VANCOMYCIN FOR LEVEL >20 FS SCH (22:45)
[2020-02-22] MEDS ORDERED: Vancomycin HCl 750 MG in Sodium Chloride 0.9% 250 ML 250 ML IVPB SCH (22:45)
[2020-02-22] MEDS ORDERED: Vancomycin HCl 250 MG in Sodium Chloride 0.9% 100 ML IVPB SCH (22:45)
[2020-02-23] MEDS ORDERED: Furosemide 40 MG/4 ML VIAL SLOW IVP SCH (04:00)
[2020-02-23] MEDS ORDERED: Piperacillin/Tazobactam 2.25 GM in Sodium Chloride 0.9% 100 ML IVPB SCH (06:00)
[2020-02-23] MEDS ORDERED: Heparin 5,000 UNITS/ML VIAL SC SCH (09:00)
[2020-02-23] MEDS ORDERED: Aspirin Chewable 81 MG TAB PO SCH (09:00)
[2020-02-23] MEDS ORDERED: Polyethylene Glycol 3350 17 GM Packet PO SCH (09:00)
[2020-02-23] MEDS ORDERED: Famotidine 20 MG TAB PO SCH (09:00)
--- NOTE | 2020-02-25 15:08 | EKG ---
Test Reason : Blood Pressure : / mmHG Vent. Rate : 082 BPM Atrial Rate : 082 BPM P-R Int : 174 ms QRS Dur : 186 ms QT Int : 486 ms P-R-T Axes : 027 -40 136 degrees QTc Int : 567 ms Normal sinus rhythm Left axis deviation Left bundle branch block Abnormal ECG Confirmed by NALINI PAN, ROSI Rasheed ([id number]), mapping editor BLAIRE WAITE ([id number]) on 02/25/2020 3:07:46 PM Referred By: Confirmed By:ROSI GAYLE MD
--- NOTE | 2020-02-27 16:08 | DIS ---
DATE OF ADMISSION: 02/22/2020 DATE OF DISCHARGE: 02/22/2020 DISCHARGE DISPOSITION: , Home. TIME OF : 2243. CAUSE OF : Presumed to be shock, likely septic and cardiogenic with unknown source of sepsis. HOSPITAL COURSE: Please see History and Physical dated same day for hospital course and /discharge information. Job ID: [id number]
== END 2020-02-22 22:44 | disposition expired ==
LOC: ERS 20:22
DX: I46.9 Cardiac arrest, cause unspecified (principal); I13.2 Hypertensive heart and chronic kidney disease with heart failure and with stage 5 chronic kidney disease, or end stage renal disease; N18.6 End stage renal disease; I50.9 Heart failure, unspecified; D63.1 Anemia in chronic kidney disease; E87.70 Fluid overload, unspecified; E87.2 Acidosis; Z99.2 Dependence on renal dialysis; Z87.891 Personal history of nicotine dependence
CPT/HCPCS: 36415; 71045; 80053; 82553; 83605; 83880; 84484; 85025; 87040; 92950; 93005; 94660; 96361; 96365; 96366; 96374; J0171; J1940; J2543; J3370